=== PATIENT | male | born 1950 | race Caucasian/White ===

== ENCOUNTER 2017-03-27 05:08 | Day surgery (SDC) | payer MEDICARE, BC ==
[2017-03-26 11:02] LABS: HEMOGLOBIN 15.8 g/dL (13.5-17.5); MCH 31.8 pg (26.0-34.0); MCHC 34.3 g/dL (31.0-37.0); MCV 92.6 fL (80.0-100.0); MEAN PLATELET VOLUME 9.8 fL (7.4-10.4); RBC 4.97 10x6/uL (4.20-6.10); RDW 13.7 % (11.5-14.5); WBC 5.8 10x3/uL (4.8-10.8)
[~2017-03-27] VITALS: Ht 198.1 cm; Wt 117.0 kg
--- NOTE | ~2017-03-27 | HP ---
PATIENT: JUAN JOSE GARCIA MEDICAL RECORD: [id number] ACCOUNT: [id number] LOCATION:[facility] : 48 ADMISSION DATE: 03/27/17 HISTORY AND PHYSICAL EXAMINATION There is a typed history and physical on the chart. His history and physical examination is unchanged from his visit to see me in the clinic. His primary care physician is Dr. Rouse. His retort load expediter is Dr. Irwin. TRANSINT:[id number] Voice Confirmation ID: [id number] DOCUMENT ID: [id number] VENKAT MENDOZA MD CC: [id number] DICTATION DATE: 03/27/17 1158 SULFUR CHLORIDE OPERATOR: 03/27/17 1659 [facility] 03/27/17 [place] [id number] [place] [id number]
--- NOTE | ~2017-03-27 | OP ---
PATIENT NAME: JUAN JOSE GARCIA MEDICAL RECORD: [id number] :48 LOCATION:[facility] ADMISSION DATE: SURGEON: VENKAT MENDOZA MD DATE OF OPERATION: 03/27/2017 PREOPERATIVE DIAGNOSIS: Symptomatic umbilical hernia. POSTOPERATIVE DIAGNOSIS: Symptomatic incarcerated umbilical hernia. PROCEDURE: Open incarcerated umbilical hernia repair without mesh. SURGEON: Venkat Mendoza MD PARTY PLAN DEALER: None. BLOOD LOSS: Minimal. ANESTHESIA: General. COMPLICATIONS: None. Due to the small size of the hernia, I elected to perform this without mesh. OPERATIVE COURSE: I saw the patient in the holding area. We reviewed the operative procedure. The patient was conveyed to the operating room electively on 03/27/2017. General anesthesia was induced by anesthesia staff. An incision was accomplished within the umbilicus. There was incarcerated fat which appeared to be omentum. This was excised with the electrocautery and sent to pathology as a single specimen. I then sharply cleaned connective tissue from around the umbilical hernia defect. A jido-[id number]-vglpv repair was performed utilizing 0 Vicryl sutures. I oversewed the repair with a [id number] 0 Surgidac. The skin was approximated with 3-0 Vicryl. Approximation of the skin occurred with 4-0 Vicryl Rapide and then Dermabond. The patient was then extubated and conveyed to post-anesthesia care unit where he was in stable condition. I hope he will be dismissed home on an analgesic. TRANSINT:[id number] Voice Confirmation ID: [id number] DOCUMENT ID: [id number] VENKAT MENDOZA MD CC: GINGER HERRMANN M.D. and GEORGE HAMILTON MD [id number] DICTATION DATE: 03/27/171201 TOP FRAME MAKER: 03/27/17 1727 [facility] 03/27/17 [place] [id number]
[~2017-03-27 05:08] MED LIST: ADDERALL 30 MG30 MG PO; COLACE100 MG PO; COUMADIN5 MG PO; DEXILANT60 MG PO; DILAUDID4 MG PO; NORCO 10/325 TA1 TA1 PO; NORCO 5/325 TAB1 TA1 PO; ROXICODONE15 MG PO; SOMA350 MG PO; VALIUM10 MG PO
[2017-03-27 08:59] VITALS: BP 133/84; Ht 198.1 cm; Wt 117.0 kg
--- NOTE | 2017-03-27 12:14 | NUR ---
158/100 PRE OP BP
--- NOTE | 2017-03-27 14:09 | NUR ---
1405--PT UP TO BATHROOM, VOIDS WITHOUT DIFFICULTY. IV REAGAN'Cheyanne. ANA RN
--- NOTE | 2017-03-27 14:44 | NUR ---
1447--DISCHARGE INSTRUCTIONS GIVEN, PT VERBALIZES UNDERSTANDING. PT OFF UNIT VIA AMINAH. ANA GARCIA
== END 2017-03-27 14:40 | disposition home or self-care (01) ==
LOC: D.OPS 05:08 → D.PAN 10:00 → D.OPS 10:50 → D.PAN 11:00 → D.OPS 14:40
PROVIDERS: Anesthesiology
DX: K42.0 Umbilical hernia with obstruction, without gangrene (principal)

== ENCOUNTER 2017-05-20 14:34 | Emergency (ER) | payer MEDICARE, BC ==
[2017-03-27 08:59] VITALS: BMI 29.8
[2017-05-20 15:50] LABS: BASOPHILS 0.1 % (0-2); EOSINOPHILS 0.3 % (0-7); HEMATOCRIT 55.6 % (42.0-54.0); HEMOGLOBIN 18.7 g/dL (13.5-17.5); IMMATURE GRANULOCYTES 0.3 % (0-5); LYMPHOCYTES 6.9 % (15-50); MCH 32.2 pg (26.0-34.0); MCHC 33.6 g/dL (31.0-37.0); MCV 95.9 fL (80.0-100.0); MEAN PLATELET VOLUME 10.2 fL (7.4-10.4); MONOCYTES 7.8 % (2-11); NEUTROPHILS 84.6 % (40-80); PLATELET COUNT 230 10x3/uL (130-400); RDW 13.4 % (11.5-14.5); WBC 17.3 10x3/uL (4.8-10.8)
[2017-05-20 16:04] LABS: ALBUMIN 4.2 g/dL (3.4-5.0); ALKALINE PHOSPHATASE 84 U/L (46-116); ALT (SGPT) 61 U/L (10-68); CALC OSMOLALITY 283 mosm/kg (275-300); CALCIUM 9.5 mg/dL (8.5-10.1); CARBON DIOXIDE 27.3 mmol/L (21.0-32.0); CHLORIDE - SERUM 100 mmol/L (98-107); CREATININE - SERUM 1.2 mg/dL (0.6-1.3); GLUCOSE 203 mg/dL (74-106); POTASSIUM - SERUM 3.6 mmol/L (3.5-5.1); PROTEIN - SERUM 8.2 g/dL (6.4-8.2); SODIUM 139 mmol/L (136-145); UREA NITROGEN 12 mg/dL (7-18); eGFR NON AFRICAN AMERICAN 64 mL/min (90-120)
[2017-05-20 16:08] LABS: AMYLASE - SERUM 31 U/L (25-115); LIPASE 120 U/L (73-393); TROPONIN-I < 0.017 ng/mL (0.000-0.060)
== END 2017-05-20 17:56 | disposition home or self-care (01) ==
LOC: D.ER 14:34
PROVIDERS: Physician Assistant
DX: R11.2 Nausea with vomiting, unspecified (principal); R51 Headache; R42 Dizziness and giddiness; I25.10 Atherosclerotic heart disease of native coronary artery without angina pectoris; R00.0 Tachycardia, unspecified; R94.31 Abnormal electrocardiogram [ECG] [EKG]; R79.89 Other specified abnormal findings of blood chemistry

== ENCOUNTER 2017-06-13 14:43 | Inpatient (IN) | payer MEDICARE, BC ==
[~2017-06-13] VITALS: Ht 198.1 cm; Wt 115.7 kg
--- NOTE | ~2017-06-13 | OP ---
PATIENT NAME: JUAN JOSE GARCIA MEDICAL RECORD: [id number] :48 LOCATION:[facility] ADMISSION DATE:06/13/17 SURGEON: MOIRA GOMEZ MD DATE OF OPERATION: 06/16/2017 PREOPERATIVE DIAGNOSES: 1. Recurrent small-bowel obstruction. 2. Coronary artery disease. 3. Gastroesophageal reflux disease. 4. Obstructive sleep apnea. 5. Anxiety. POSTOPERATIVE DIAGNOSES: 1. Recurrent small-bowel obstruction. 2. Coronary artery disease. 3. Gastroesophageal reflux disease. 4. Obstructive sleep apnea. 5. Anxiety. PROCEDURE: Laparoscopic lysis of adhesions times 2 hours. SURGEON: Moira Gomez MD REPORT OF PROCEDURE: The patient's abdomen was prepped and draped in sterile fashion. A Veress needle was inserted in the left upper quadrant and the abdomen was insufflated. A 5-mm Visiport trocar was placed in the left lateral abdomen and we gently entered the abdominal cavity. Once inside, I could see there Veress needle and saw there was no evidence of any injury to bowel or surrounding structures. A 5-mm trocar was placed in the left lower quadrant and another 5-mm trocar was placed in the left subcostal region. The patient had a large amount of adherent adhesions of the omentum to the anterior abdominal wall on the superior aspect of the abdomen. These were teased down carefully with blunt dissection and electrocautery. Once we were able to free these up, we ran into the patient's small bowel and right colon, they were adherent to the right lateral wall. The small bowel and proximal right colon were taken down off the abdominal wall using sharp dissection. We continued following the patient's terminal ileum retrograde, relieving any adhesions that were found throughout the patient's pelvis. At the pelvis had a large amount of thick adhesions present which were eventually freed up completely until we had complete mobilization of the patient's small bowel. We were then able to run the small bowel from the terminal ileum back towards the ligament of Treitz. We checked multiple times to make sure there was no sign of any bowel injuries, which we saw none. We irrigated out the abdomen thoroughly with normal saline and assured there was no sign of any active bleeding. At this point, the omentum was laid down over the abdominal cavity and the trocars were removed. The skin incisions were closed with subcutaneous 5-0 Monocryl and dressed appropriately. These had been infused with a total of 10mL of 0.25% Marcaine with epinephrine prior to closure. COMPLICATIONS: None. CONDITION: Stable. ANESTHESIA: General endotracheal and local. OPERATIVE REPORT [id number] JUAN JOSE GARCIA BLOOD LOSS: Minimal. TRANSINT:[id number] Voice Confirmation ID: [id number] DOCUMENT ID: [id number] MOIRA GOMEZ MD CC: [id number] DICTATION DATE: 06/18/17 1137 PHYSICAL THERAPY NURSE: 06/18/[address] [facility] [address] [place] [id number]
--- NOTE | 2017-06-13 15:30 | NUR ---
RECEIVED TO ROOM 2207 DIRECT ADMIT FROM WALK IN CLINIC. SL TO R AC PATENT. ABDOMEN DISTENDED BUT SOFT. REPORTS VOMITING SINCE THURSDAY.
[2017-06-13 15:36] VITALS: BP 145/98; BMI 29.5
--- NOTE | 2017-06-13 16:10 | NUR ---
14 WOLOF NG TUBE INSERTED WITHOUT DIFFICULTY. IMMEDIATE RETURN OF 300 CC'S OF GREENISH LIQUID.
[2017-06-13 16:31] VITALS: BP 145/98
[2017-06-13 16:48] LABS: ANION GAP 10.1 mmol/L (8-16); CALCIUM 8.2 mg/dL (8.5-10.1); CARBON DIOXIDE 29.7 mmol/L (21.0-32.0); CREATININE - SERUM 1.1 mg/dL (0.6-1.3); POTASSIUM - SERUM 3.8 mmol/L (3.5-5.1)
--- NOTE | 2017-06-13 18:11 | NUR ---
RESTING QUIETLY WITH EYES CLOSED. RESP EVEN,NONLABORED.
--- NOTE | 2017-06-13 19:45 | NUR ---
PATIENT IS IN BED. HOB 45 DEGREES. NGT TO LEFT NARE, HOOKED TO LIWS. BED IN LOWEST POSITION, CALL LIGHT IN REACH. BED RIALS UP X'S 2. NO SIGNS OF DISTRESS NOTED. PATIENT IS RESTING QUIETLY WITH EYES CLOSED.
[2017-06-13 20:00] VITALS: BP 142/97
--- NOTE | 2017-06-13 20:53 | NUR ---
REC'D SITTING UP IN BED. ALERT AND ORIENTED X4. NO DISTRESS NOTED. NGT TO LEFT [place]. DENIED PAIN AT THIS TIME. INSTRUCTED TO CALL IF NEEDED ANYTHING. VERBALIZED UNDERSTANDING. BED LOW, LOCKED, CALL LIGHT IN REACH. WILL ADMIN PM/AM MEDS PRESCRIBED, WILL CONT TO MONITOR.
[2017-06-13 23:43] VITALS: BP 159/96
[2017-06-14 04:02] VITALS: BP 149/92
[2017-06-14 04:40] LABS: BASOPHILS 0.2 % (0-2); EOSINOPHILS 0.5 % (0-7); HEMATOCRIT 53.8 % (42.0-54.0); IMMATURE GRANULOCYTES 0.4 % (0-5); LYMPHOCYTES 16.4 % (15-50); MCH 31.6 pg (26.0-34.0); MCHC 33.5 g/dL (31.0-37.0); MCV 94.4 fL (80.0-100.0); MEAN PLATELET VOLUME 10.3 fL (7.4-10.4); MONOCYTES 11.7 % (2-11); NEUTROPHILS 70.8 % (40-80); PLATELET COUNT 235 10x3/uL (130-400); RDW 13.4 % (11.5-14.5); WBC 11.4 10x3/uL (4.8-10.8)
[2017-06-14 05:01] LABS: CALC OSMOLALITY 282 mosm/kg (275-300); CALCIUM 8.1 mg/dL (8.5-10.1); CARBON DIOXIDE 28.1 mmol/L (21.0-32.0); CHLORIDE - SERUM 104 mmol/L (98-107); GLUCOSE 147 mg/dL (74-106); POTASSIUM - SERUM 3.7 mmol/L (3.5-5.1); SODIUM 139 mmol/L (136-145); UREA NITROGEN 17 mg/dL (7-18); eGFR NON AFRICAN AMERICAN 79 mL/min (90-120)
--- NOTE | 2017-06-14 07:20 | NUR ---
PATIENT SITTING UP IN BED. PATIENT IS AWAKE, ALERT, AND ORIENTED X4. NO COMPLAINTS OF PAIN OR NAUSEA. NG TUBE NOTED TO PATIENT'S LEFT NARE AND CONNECTED TO LIS. PATIENT DENIES ANY NEEDS AT PRESENT TIME. CALL LIGHT IN PATIENT'S REACH. WILL MONITOR PATIENT.
[2017-06-14 08:32] VITALS: BP 145/92
[2017-06-14 11:56] VITALS: BP 140/85
[2017-06-14 16:42] VITALS: BP 141/86
[2017-06-14 19:00] VITALS: BP 152/93
--- NOTE | 2017-06-14 19:35 | NUR ---
RECIEVED SHIFT REPORT. PT IS LYING IN BED. ALERT AND ORIENTED AND ABLE TO VERBALIZE NEEDS. IV IS PATENT AND FLUIDS ARE RUNNING PER ORDER. PT IS AMBULATORY BUT WAS INSTRUCTED TO CALL FOR ANY ASSISTANCE NEEDED. NGT TO LEFT NARE PATENT AND CONNECTED TO LIWS. PT DENIES ANY PAIN AT THIS TIME. NO NEEDS ARE VERBALIZED AT THIS TIME. WILL CONTINUE TO MONITOR. SIDE RAILS ARE UP X 2. BED IS IN LOWEST POSITION. CALL LIGHT IS WITHIN REACH.
--- NOTE | 2017-06-14 21:00 | NUR ---
SHIFT ASSESSMENT COMPLETED. MEDICATION ADMINISTERED PER ORDER. NO NEEDS AT THIS TIME. WILL MONITOR. SIDE RAILS X 2. BED LOW. CALL LIGHT IN REACH.
[2017-06-15] VITALS: BP 155/87
[2017-06-15 04:00] VITALS: BP 143/88
--- NOTE | 2017-06-15 07:00 | NUR ---
PT REC'D FROM [facility]. RESTING IN BED WITH EYES CLOSED. EASILY AROUSED. NO COMPLAINTS OF PAIN. AAOX4. NGT TO L NARE TO LIS. APPROXIMATELY 250CC'S OF BROWN/GREEN FLUID TO COLLECTION CHAMBER. PIV TO R AC FREE OF REDNESS AND SWELLING. PT STATES, "I WISH SOMEONE WOULD TELL ME SOMETHING. I DON'T KNOW ANYTHING. I FEEL LIKE I COULD SCREAM BECAUSE I HAVE NO CLUE WHATS GOING ON." APOLOGIZED TO PT AND ASKED WHAT QUESTIONS HE HAD. PT WANTS TO KNOW WHY HE STILL HAS THE NGT AND WHEN IT WILL COME OUT AND WHEN HE CAN EAT. STATED THAT HE COULD NOT EAT UNTIL THE NGT CAME OUT BECAUSE THAT WOULD DEFEAT THE PURPOSE OF EATING ANYTHING. ALSO EXPLAINED THAT IT WOULD BE UP TO THE DOCTOR WHEN THE NGT WOULD BE DISCONTINUED WELL. PT ASKING, "CAN I HAVE THAT STUFF I GOT LAST NIGHT AT LEAST?" EXPLAINED THAT I WOULD HAVE TO CALL AND GET AN ORDER FOR IT, BUT I WOULD DEFINITELY TRY. BED LOW, CALL LIGHT IN REACH, DENIES NEEDS. CPOC.
[2017-06-15 08:38] VITALS: BP 148/92
--- NOTE | 2017-06-15 09:10 | NUR ---
PATIENT ALERT IN HIGH [place] POSITION. NO SIGNS OF DISTRESS NOTED. RAYMOND NURSE AID AT BEDSIDE. SIDE RAILS UP X2. BED IN LOW POSITION. CALL LIGHT IN REACH.
[2017-06-15 10:31] LABS: BASOPHILS 0.1 % (0-2); EOSINOPHILS 0.5 % (0-7); HEMATOCRIT 52.9 % (42.0-54.0); HEMOGLOBIN 17.4 g/dL (13.5-17.5); IMMATURE GRANULOCYTES 0.4 % (0-5); LYMPHOCYTES 16.7 % (15-50); MCHC 32.9 g/dL (31.0-37.0); MCV 94.3 fL (80.0-100.0); MEAN PLATELET VOLUME 10.4 fL (7.4-10.4); MONOCYTES 9.7 % (2-11); NEUTROPHILS 72.6 % (40-80); PLATELET COUNT 246 10x3/uL (130-400); RBC 5.61 10x6/uL (4.20-6.10); RDW 13.4 % (11.5-14.5); WBC 10.4 10x3/uL (4.8-10.8)
--- NOTE | 2017-06-15 10:35 | NUR ---
MORNING MEDS ADMINISTERED AT THIS TIME. TOLERATED WELL. BED LOW, CALL LIGHT IN REACH, DENIES NEEDS. CPOC.
[2017-06-15 10:46] LABS: ALBUMIN 3.1 g/dL (3.4-5.0); ALKALINE PHOSPHATASE 55 U/L (46-116); ALT (SGPT) 28 U/L (10-68); BILIRUBIN - TOTAL 0.64 mg/dL (0.2-1.3); CALC OSMOLALITY 282 mosm/kg (275-300); CALCIUM 8.3 mg/dL (8.5-10.1); CARBON DIOXIDE 29.9 mmol/L (21.0-32.0); CHLORIDE - SERUM 104 mmol/L (98-107); CREATININE - SERUM 0.9 mg/dL (0.6-1.3); GLUCOSE 126 mg/dL (74-106); POTASSIUM - SERUM 3.7 mmol/L (3.5-5.1); PROTEIN - SERUM 7.1 g/dL (6.4-8.2); SODIUM 140 mmol/L (136-145); UREA NITROGEN 17 mg/dL (7-18); eGFR NON AFRICAN AMERICAN 89 mL/min (90-120)
[2017-06-15 12:15] VITALS: Ht 198.1 cm; Wt 115.7 kg
--- NOTE | 2017-06-15 13:00 | NUR ---
PRN ATIVAN ADMINISTERED PER PT COMPLAINTS OF FEELING ANXIOUS. DR. GOMEZ AT BEDSIDE DC'ING NGT. WILL ORDER CLD TRAY.
[2017-06-15 13:30] VITALS: BP 156/88
--- NOTE | 2017-06-15 15:01 | NUR ---
PT SITTING UP IN BED VISITING AT BEDSIDE. BED LOW, CALL LIGHT IN REACH, DENIES NEEDS. CPOC.
[2017-06-15 17:05] VITALS: BP 142/83
--- NOTE | 2017-06-15 19:35 | NUR ---
RECIEVED SHIFT REPORT. PT IS LYING IN BED. ALERT AND ORIENTED AND ABLE TO VERBALIZE NEEDS. IV IS PATENT AND FLUIDS ARE RUNNING PER ORDER. PT IS AMBULATORY BUT WAS INSTRUCTED TO CALL FOR ANY ASSISTANCE NEEDED. PT DENIES ANY PAIN AT THIS TIME. NO NEEDS ARE VERBALIZED AT THIS TIME. WILL CONTINUE TO MONITOR. SIDE RAILS ARE UP X 2. BED IS IN LOWEST POSITION. CALL LIGHT IS WITHIN REACH.
[2017-06-15 20:00] VITALS: BP 120/84
--- NOTE | 2017-06-15 22:09 | NUR ---
SHIFT ASSESSMENT COMPLETED. PT REQUESTING PRN ATIVAN. ADMINISTERED PER ORDER. DENIES FURTHER NEEDS. WILL MONITOR. SIDE RAILS X 2. BED LOW. CALL LIGHT IN REACH.
[2017-06-16] VITALS: BP 130/88
[2017-06-16 04:00] VITALS: BP 128/80
[2017-06-16 05:59] LABS: BASOPHILS 0.5 % (0-2); EOSINOPHILS 1.7 % (0-7); HEMATOCRIT 49.8 % (42.0-54.0); HEMOGLOBIN 16.6 g/dL (13.5-17.5); IMMATURE GRANULOCYTES 0.2 % (0-5); LYMPHOCYTES 26.9 % (15-50); MCH 31.2 pg (26.0-34.0); MCHC 33.3 g/dL (31.0-37.0); MCV 93.6 fL (80.0-100.0); MEAN PLATELET VOLUME 10.2 fL (7.4-10.4); MONOCYTES 12.4 % (2-11); NEUTROPHILS 58.3 % (40-80); PLATELET COUNT 246 10x3/uL (130-400); RBC 5.32 10x6/uL (4.20-6.10); RDW 13.5 % (11.5-14.5); WBC 8.2 10x3/uL (4.8-10.8)
[2017-06-16 06:26] LABS: ALBUMIN 2.7 g/dL (3.4-5.0); ALKALINE PHOSPHATASE 48 U/L (46-116); CALCIUM 7.9 mg/dL (8.5-10.1); CARBON DIOXIDE 27.9 mmol/L (21.0-32.0); CHLORIDE - SERUM 105 mmol/L (98-107); CREATININE - SERUM 0.7 mg/dL (0.6-1.3); GLUCOSE 114 mg/dL (74-106); POTASSIUM - SERUM 3.5 mmol/L (3.5-5.1); PROTEIN - SERUM 6.2 g/dL (6.4-8.2); SODIUM 141 mmol/L (136-145); eGFR NON AFRICAN AMERICAN > 90 mL/min (90-120)
[2017-06-16 06:29] LABS: ALT (SGPT) 20 U/L (10-68); CALC OSMOLALITY 281 mosm/kg (275-300); UREA NITROGEN 12 mg/dL (7-18)
--- NOTE | 2017-06-16 08:01 | NUR ---
Patient Name: JUAN JOSE GARCIA Admission Status: Elective Accout number: [id number] Admission Date: 06-13-2017 : 1950 Admission Diagnosis: Attending: SUMAN Current LOS: 3 Anticipated DC Date: Planned Disposition: Home Primary Insurance: MEDICARE A & B Discharge Planning Comments: CM met with patient to assess discharge planning needs. Patient states that he is independent and lives home alone & plans to return there. He has a friend name Raghav Huang who will be his short haul driver home. Patient states his home is a safe place. Patient denies any steps or stairs in his home. He also denies any use of DME of services and does not think he will nee any. CM will continue to follow and assist as needed. PCP: [facility] Raghav Huang Loans Officer: Flory Mayo * Is the patient Alert and Oriented? Yes 0 * How many steps to enter\exit or inside your home? 0 0 * PCP NASIM 0 * [facility] 0 * Preadmission Environment Home Alone 0 * ADLs Independent 0 * Equipment None 0 * List name and contact numbers for known caregivers / representatives who currently or will assist patient after discharge: RAGHAV HUANG 0 * Community resources currently utilized None 0 * Additional services required to return to the preadmission environment? No 0 * Can the patient safely return to the preadmission environment? Yes 0 * Has this patient been hospitalized within the prior 30 days at any hospital? No 0 Grand Total: 0
[2017-06-16 09:23] VITALS: BP 137/79
[2017-06-16 15:26] VITALS: BP 154/87
--- NOTE | 2017-06-16 16:00 | NUR ---
PATIENT IN LOW POSITION WITH FAMILY PRESENT. NO SIGNS OF DISTRESS NOTED. SIDE RAILS UP X2. BED IN LOW POSITION. CALL LIGHT IN REACH.
--- NOTE | 2017-06-16 19:30 | NUR ---
RECIEVED SHIFT REPORT. PT IS LYING IN BED. ALERT AND ORIENTED AND ABLE TO VERBALIZE NEEDS. IV IS PATENT AND FLUIDS ARE RUNNING PER ORDER. LAP SITES TO ABDOMEN C/D/I. PT IS AMBULATORY BUT WAS INSTRUCTED TO CALL FOR ANY ASSISTANCE NEEDED. PT DENIES ANY PAIN AT THIS TIME. NO NEEDS ARE VERBALIZED AT THIS TIME. WILL CONTINUE TO MONITOR. SIDE RAILS ARE UP X 2. BED IS IN LOWEST POSITION. CALL LIGHT IS WITHIN REACH.
[2017-06-16 20:00] VITALS: BP 145/85
--- NOTE | 2017-06-16 20:45 | NUR ---
SHIFT ASSESSMENT COMPLETED. PT REQUESTING APPLE JUICE. NO FURTHER NEEDS AT THIS TIME. WILL MONITOR. SIDE RAILS X 2. BED LOW. CALL LIGHT IN REACH.
[2017-06-17] VITALS: BP 152/89
[2017-06-17 04:00] VITALS: BP 146/77
[2017-06-17 05:32] LABS: BASOPHILS 0.3 % (0-2); EOSINOPHILS 0.2 % (0-7); HEMATOCRIT 50.2 % (42.0-54.0); HEMOGLOBIN 16.7 g/dL (13.5-17.5); IMMATURE GRANULOCYTES 0.3 % (0-5); LYMPHOCYTES 14.7 % (15-50); MCH 30.9 pg (26.0-34.0); MCHC 33.3 g/dL (31.0-37.0); MEAN PLATELET VOLUME 10.3 fL (7.4-10.4); NEUTROPHILS 71.5 % (40-80); PLATELET COUNT 257 10x3/uL (130-400); RDW 13.4 % (11.5-14.5)
[2017-06-17 06:01] LABS: ALBUMIN 2.7 g/dL (3.4-5.0); ALKALINE PHOSPHATASE 51 U/L (46-116); ALT (SGPT) 25 U/L (10-68); BILIRUBIN - TOTAL 0.65 mg/dL (0.2-1.3); CALCIUM 7.5 mg/dL (8.5-10.1); CARBON DIOXIDE 26.1 mmol/L (21.0-32.0); CHLORIDE - SERUM 104 mmol/L (98-107); CREATININE - SERUM 0.8 mg/dL (0.6-1.3); GLUCOSE 144 mg/dL (74-106); POTASSIUM - SERUM 3.3 mmol/L (3.5-5.1); PROTEIN - SERUM 6.4 g/dL (6.4-8.2); SODIUM 137 mmol/L (136-145); eGFR NON AFRICAN AMERICAN > 90 mL/min (90-120)
[2017-06-17 06:04] LABS: CALC OSMOLALITY 274 mosm/kg (275-300); UREA NITROGEN 8 mg/dL (7-18)
--- NOTE | 2017-06-17 08:10 | NUR ---
PT AOX4 RESP EVEN AND NONLABORED PT DENIES NEEDS AT THIS TIME IV TO RIGHT HAND PATENT AND INTACT AT THIS TIME SRX2 BED AT LOWEST SETTING CALL LIGHT WITHIN REACH WILL CONTINUE TO MONITOR
[2017-06-17 09:52] VITALS: BP 137/84
[2017-06-17 13:07] VITALS: BP 129/79
--- NOTE | 2017-06-17 13:08 | NUR ---
NUTRITION MONITORING & EVAL CHART REVIEWED, DIET ADVANCED TO CLEAR LIQUID S/P PROCEDURE. WILL MONITOR DIET ADVANCEMENT, PO INTAKE. RD FOLLOWING
[2017-06-17 16:41] VITALS: BP 144/84
[2017-06-17 19:00] VITALS: BP 136/94
[2017-06-18] VITALS: BP 140/87; BP 142/82
--- NOTE | 2017-06-18 | NUR ---
REC'D LYING IN BED. ALERT AND ORIENTED. NO DISTRESS NOTED. IS WANTING TO TAKE A SHOWER. WILL HELP WITH THAT. DENIED FURTHER NEEDS AT THIS TIME. INSTRUCTED TO CALL IF NEEDED ANYTHING. VERBALIZED UNDERSTANDING. BED LOW, LOCKED, CALL LIGHT IN REACH.
--- NOTE | 2017-06-18 02:00 | NUR ---
PTIN BED WITH NO DISTRESS. RESPIRATIONS EVEN AND UNLABORED. SIDE RAILS X 2. BED LOW. CALL LIGHT IN REACH.
[2017-06-18 04:00] VITALS: BP 114/87
[2017-06-18 05:52] LABS: BASOPHILS 0.4 % (0-2); EOSINOPHILS 3.1 % (0-7); HEMATOCRIT 46.9 % (42.0-54.0); HEMOGLOBIN 15.7 g/dL (13.5-17.5); IMMATURE GRANULOCYTES 0.6 % (0-5); LYMPHOCYTES 18.4 % (15-50); MCH 31.1 pg (26.0-34.0); MCHC 33.5 g/dL (31.0-37.0); MCV 92.9 fL (80.0-100.0); MEAN PLATELET VOLUME 10.3 fL (7.4-10.4); MONOCYTES 14.5 % (2-11); PLATELET COUNT 252 10x3/uL (130-400); RBC 5.05 10x6/uL (4.20-6.10); RDW 13.4 % (11.5-14.5); WBC 8.5 10x3/uL (4.8-10.8)
[2017-06-18 06:08] LABS: ALBUMIN 2.5 g/dL (3.4-5.0); ALKALINE PHOSPHATASE 46 U/L (46-116); ALT (SGPT) 19 U/L (10-68); BILIRUBIN - TOTAL 0.68 mg/dL (0.2-1.3); CALC OSMOLALITY 273 mosm/kg (275-300); CALCIUM 7.6 mg/dL (8.5-10.1); CARBON DIOXIDE 27.7 mmol/L (21.0-32.0); CHLORIDE - SERUM 104 mmol/L (98-107); CREATININE - SERUM 0.7 mg/dL (0.6-1.3); GLUCOSE 129 mg/dL (74-106); POTASSIUM - SERUM 3.2 mmol/L (3.5-5.1); PROTEIN - SERUM 6.1 g/dL (6.4-8.2); SODIUM 137 mmol/L (136-145); UREA NITROGEN 6 mg/dL (7-18); eGFR NON AFRICAN AMERICAN > 90 mL/min (90-120)
[2017-06-18 08:00] VITALS: BP 137/85
--- NOTE | 2017-06-18 08:12 | NUR ---
AWAKE AND ALERT. ORIENTED X3. NO C/O THIS AM. LUNGS ARE CLEAR BILATERALLY, NO COUGH NOTED. SKIN IS INTACT WITHOUT REDNESS EXCEPT 3 SMALL INSERTION SITES TO ABDOMEN WHICH ARE CLEAN AND DRY. SL TO RIGHT WRIST IS PATENT WITHOUT REDNESS AT INSERITON SITE. DENIES NEEDS.
--- NOTE | 2017-06-18 09:14 | NUR ---
AMBULATED OVER 1000 FEET PER SELF IN HALLWAY. NO C/O INCREASED PAIN OR NAUSEA WITH ACTIVITY.
--- NOTE | 2017-06-18 13:00 | NUR ---
FULL LIQUID DIET SERVED. ATE MOST OF MEAL.
--- NOTE | 2017-06-18 14:40 | NUR ---
DISCHARGED TO HOME WITH FAMILY AMBULATORY. DISCHARGE INSTRUCTIONS GIVEN BOTH VERBALLY AND WRITTEN. ALL QUESTIONS ANSWERED. PATIENT VERBALIZED UNDERSTANDING OF SAME. NO NEW PRESCRIPTIONS NEEDED. SL TO RIGHT WRIST D/C WITH CATHETER INTACT.
== END 2017-06-18 14:43 | disposition home or self-care (01) | DRG 328 ==
LOC: D.MS 14:43 → D.SDCHOLD 14:43 → D.MS 06-18 14:43
PROVIDERS: Emergency Medicine; Surgery; ADMIT Family Medicine
PROC: 0D9670Z Drainage of Stomach with Drainage Device, Via Natural or Artificial Opening (ICD-10-PCS; 2017-06-13)
PROC: 0DNW4ZZ Release Peritoneum, Percutaneous Endoscopic Approach (ICD-10-PCS; principal; 2017-06-16 11:00)
PROC: 0DN64ZZ Release Stomach, Percutaneous Endoscopic Approach (ICD-10-PCS; 2017-06-16 11:00)
DX: K56.5 Intestinal adhesions [bands] with obstruction (postinfection) (principal); K21.9 Gastro-esophageal reflux disease without esophagitis; G47.33 Obstructive sleep apnea (adult) (pediatric); F41.9 Anxiety disorder, unspecified; I25.10 Atherosclerotic heart disease of native coronary artery without angina pectoris

== ENCOUNTER 2017-06-20 19:20 | Observation (INO) | payer MEDICARE, BC ==
[~2017-06-20] VITALS: Ht 198.1 cm; Wt 113.4 kg
[2017-06-20 19:54] LABS: BASOPHILS 0.3 % (0-2); EOSINOPHILS 0.6 % (0-7); HEMATOCRIT 57.6 % (42.0-54.0); HEMOGLOBIN 20.3 g/dL (13.5-17.5); IMMATURE GRANULOCYTES 0.7 % (0-5); LYMPHOCYTES 10.7 % (15-50); MCH 31.8 pg (26.0-34.0); MCHC 35.2 g/dL (31.0-37.0); MCV 90.3 fL (80.0-100.0); MEAN PLATELET VOLUME 10.1 fL (7.4-10.4); MONOCYTES 8.4 % (2-11); NEUTROPHILS 79.3 % (40-80); RBC 6.38 10x6/uL (4.20-6.10); RDW 13.1 % (11.5-14.5); WBC 15.6 10x3/uL (4.8-10.8)
[2017-06-20 19:55] LABS: PLATELET COUNT 308 10x3/uL (130-400)
[2017-06-20 20:07] LABS: ALBUMIN 3.6 g/dL (3.4-5.0); ANION GAP 17.4 mmol/L (8-16); BILIRUBIN - TOTAL 0.87 mg/dL (0.2-1.3); CALCIUM 9.9 mg/dL (8.5-10.1); CARBON DIOXIDE 24.2 mmol/L (21.0-32.0); CREATININE - SERUM 1.5 mg/dL (0.6-1.3); POTASSIUM - SERUM 3.6 mmol/L (3.5-5.1); PROTEIN - SERUM 8.6 g/dL (6.4-8.2)
[2017-06-20 23:13] LABS: COLOR DK YELLOW (YELLOW)
[2017-06-20 23:14] LABS: APPEARANCE CLOUDY (CLEAR); BILIRUBIN 2+ (NEGATIVE); GLUCOSE NEGATIVE (NEGATIVE); KETONE LARGE mg/dL (NEGATIVE); LEUKOCYTE ESTERASE 1+ (NEGATIVE); NITRITE NEGATIVE (NEGATIVE); PROTEIN 2+ mg/dL (NEGATIVE); UROBILINOGEN NORMAL (NORMAL)
[2017-06-20 23:15] LABS: BACTERIA FEW /hpf (NONE SEEN); MUCUS >1+ /lpf (NONE SEEN); RED CELLS - URINE 0-5 /hpf (0-5)
--- NOTE | 2017-06-21 01:15 | NUR ---
RECEIVED TO FLOOR FROM ER VIA WHEELCHAIR. PT STATES HE HAS HAD NAUSEA AND VOMITING SINCE LEAVING HOSPITAL ON 06/18/17. PT DENIES NAUSEA AT THIS TIME. INITIATED CONTINUOUS IV FLUIDS. REVIEWED HOME MEDS AND HISTORY. ASSESSMENT PER FLOW-SHEET. PT IS NPO. PT SAID HE WOULD LIKE SOMETHING FOR SLEEP. WAITING FOR CALL BACK FROM DR. MENDOZA.
[2017-06-21] MEDS ORDERED: PROTONIX40 MG PO (01:29)
[2017-06-21 03:00] VITALS: BP 150/92; BMI 28.9
[2017-06-21 04:00] VITALS: BP 156/99
[2017-06-21 07:32] LABS: BASOPHILS 0.2 % (0-2); EOSINOPHILS 0.4 % (0-7); HEMATOCRIT 51.9 % (42.0-54.0); HEMOGLOBIN 17.6 g/dL (13.5-17.5); IMMATURE GRANULOCYTES 0.5 % (0-5); LYMPHOCYTES 14.8 % (15-50); MCH 31.1 pg (26.0-34.0); MCHC 33.9 g/dL (31.0-37.0); MCV 91.7 fL (80.0-100.0); MEAN PLATELET VOLUME 10.3 fL (7.4-10.4); MONOCYTES 8.5 % (2-11); NEUTROPHILS 75.6 % (40-80); PLATELET COUNT 320 10x3/uL (130-400); RBC 5.66 10x6/uL (4.20-6.10); RDW 13.2 % (11.5-14.5); WBC 12.2 10x3/uL (4.8-10.8)
--- NOTE | 2017-06-21 07:45 | NUR ---
LEAVING WITH RADIOLOGY FOR SMALL BOWEL SERIES, DENIES NEEDS, BED LOWEST POSIITON, CALL LIGHT IN REACH, WILL CONTINUE TO MONITOR
[2017-06-21 08:03] LABS: ALBUMIN 2.8 g/dL (3.4-5.0); ANION GAP 13.4 mmol/L (8-16); BILIRUBIN - TOTAL 0.73 mg/dL (0.2-1.3); CALCIUM 8.4 mg/dL (8.5-10.1); CARBON DIOXIDE 27.3 mmol/L (21.0-32.0); CREATININE - SERUM 1.1 mg/dL (0.6-1.3); POTASSIUM - SERUM 3.7 mmol/L (3.5-5.1); PROTEIN - SERUM 7.2 g/dL (6.4-8.2)
--- NOTE | 2017-06-21 11:29 | NUR ---
RESTING QUIETLY IN BED. DENIES NEEDS. BOWEL SOUNDS ACTIVE X4. DENIES NEEDS. 3 SMALL INSERTION SITES TO ABDOMEN DRY AND INTACT.
[2017-06-21 12:33] VITALS: BP 132/80
[2017-06-21 17:38] VITALS: BP 150/89
[2017-06-21 20:00] VITALS: BP 127/89
[2017-06-22] VITALS (7 sets, daily range): BP systolic 126–146; BP diastolic 68–89; Ht 198.1 cm; Wt 113.4 kg
[2017-06-22 06:35] LABS: BASOPHILS 0.8 % (0-2); EOSINOPHILS 2.9 % (0-7); HEMATOCRIT 49.4 % (42.0-54.0); HEMOGLOBIN 16.3 g/dL (13.5-17.5); IMMATURE GRANULOCYTES 0.6 % (0-5); LYMPHOCYTES 26.1 % (15-50); MEAN PLATELET VOLUME 10.1 fL (7.4-10.4); MONOCYTES 10.2 % (2-11); NEUTROPHILS 59.4 % (40-80); PLATELET COUNT 293 10x3/uL (130-400); RBC 5.26 10x6/uL (4.20-6.10); RDW 13.2 % (11.5-14.5)
[2017-06-22 06:45] LABS: MCV 93.9 fL (80.0-100.0); WBC 8.4 10x3/uL (4.8-10.8)
[2017-06-22 06:59] LABS: ALBUMIN 2.6 g/dL (3.4-5.0); ALKALINE PHOSPHATASE 50 U/L (46-116); ALT (SGPT) 28 U/L (10-68); BILIRUBIN - TOTAL 0.61 mg/dL (0.2-1.3); CALC OSMOLALITY 276 mosm/kg (275-300); CALCIUM 8.1 mg/dL (8.5-10.1); CARBON DIOXIDE 28.9 mmol/L (21.0-32.0); CHLORIDE - SERUM 103 mmol/L (98-107); GLUCOSE 110 mg/dL (74-106); PHOSPHOROUS 2.6 mg/dL (2.5-4.9); POTASSIUM - SERUM 3.9 mmol/L (3.5-5.1); PROTEIN - SERUM 6.6 g/dL (6.4-8.2); SODIUM 138 mmol/L (136-145); UREA NITROGEN 13 mg/dL (7-18); eGFR NON AFRICAN AMERICAN 79 mL/min (90-120)
--- NOTE | 2017-06-22 07:35 | NUR ---
A&O, DENIES NEEDS, BED LOWEST POSITION, NON-SKID SOCKS ON, CALL LIGHT IN REACH, WILL CONTINUE TO MONITOR
--- NOTE | 2017-06-22 09:39 | NUR ---
Patient Name: JUAN JOSE GARCIA Admission Status: ER Accout number: [id number] Admission Date: 06-20-2017 : 1950 Admission Diagnosis: Attending: SHARI Current LOS: 2 Anticipated DC Date: 06-23-2017 Planned Disposition: Home Primary Insurance: MEDICARE A & B Discharge Planning Comments: CM MET WITH PATIENT REGARDING D/C NEEDS AND PLANS. PATIENT STATED HE LIVES WITH HIS AND HAS 2 STEPS TO ENTER HOME AND NO STAIRS IN HOME. PATIENT STATED A FRIEND OR FAMILY MEMBER WILL DRIVE HIM HOME AT DISCHARGE. PATIENT STATED HE IS INDEPENDENT WITH HIS CARE AND HAS A CPAP AT HOME. PATIENTS PCP IS DR. HAMILTON AND PHARMACY IS [facility]. PATIENT STATED HE DOES NOT WANT HOME HEALTH AT DISCHARGE. CM WILL CONTINUE TO FOLLOW PATIENT WITH D/C NEEDS AND PLANS. PCP DR. HAMILTON [facility]- [phone] SHAILESH GARCIA (DAUGHTER) [phone] Watch Crystal Cutter: Karen Waldrop Is the patient Alert and Oriented? Yes 0 * How many steps to enter\exit or inside your home? 2 0 * PCP DR. HAMILTON 0 * Pharmacy [facility] 0 * Preadmission Environment Home with Family 0 * ADLs Independent 0 * Equipment CPAP 0 * List name and contact numbers for known caregivers / representatives who currently or will assist patient after discharge: SHAILESH GARCIA [phone] 0 * Additional services required to return to the preadmission environment? Yes 0 * Can the patient safely return to the preadmission environment? Yes 0 * Has this patient been hospitalized within the prior 30 days at any hospital? Yes 0 Grand Total: 0
--- NOTE | 2017-06-22 12:00 | NUR ---
PT ASLEEP IN BED WITH NO VISABLE SIGNS OF PAIN OR DISCOMFORT AT THIS TIME, BED IN LOW POSITION AND CALL LIGHT WITHIN REACH. WILL CONTINUE TO MONITOR.
--- NOTE | 2017-06-22 15:04 | HP ---
PATIENT: JUAN JOSE GARCIA MEDICAL RECORD: [id number] ACCOUNT: [id number] LOCATION:D.[facility] : [birth year] ADMISSION DATE: 06/20/17 HISTORY AND PHYSICAL EXAMINATION DATE OF SERVICE: 06/21/2017 CHIEF COMPLAINT: Abdominal pain. HISTORY OF PRESENT ILLNESS: The patient has abdominal pain and distention. He has had nausea and vomiting. I have personally reviewed flat and upright views of the abdomen as well as small bowel follow through, which I have ordered. Symptoms are severe. They are constant and nonradiating. It is generalized abdominal pain. Palpation aggravates. Nothing alleviates. The patient was just released from the hospital after having surgery for a bowel obstruction. This was a laparoscopic adhesiolysis performed by Dr. Sosa. The Steri-Strips are still in place. REVIEW OF SYSTEMS: No fever, no chills, no chest pain, no cough, no congestion. Positive for nausea, positive for vomiting, positive for abdominal pain. No dysuria, no back pain, no numbness or tingling, no rash. No anemia, no hives. PAST MEDICAL AND SURGICAL HISTORY: As described above. Umbilical hernia repair in the past by me, vertigo, adhesiolysis for small-bowel obstruction as described above, also gastroesophageal reflux and anxiety. SOCIAL HISTORY: Negative for alcohol or tobacco use. HOME MEDICINES: Dexlansoprazole, diazepam, hydrocodone, and oxycodone. ALLERGIES: No known drug allergies. PHYSICAL EXAMINATION: GENERAL: The patient does not appear acutely ill. He does not appear chronically ill. EARS: External ears appear normal. EYES: Extraocular movements are intact. NECK: Trachea is midline. CHEST: No intercostal retractions. PULMONARY: Nonlabored, no stridor. ABDOMEN: Protuberant, tympanitic, mildly diffusely tender. Steri-Strips are still in place. PSYCHIATRIC: Normal affect. NEUROLOGIC: Nonfocal, no lethargy. The patient answers questions appropriately, moves all extremities well. BACK: No thoracic kyphosis. LYMPHATICS: No lymphangitic streaking of the exposed extremities. IMPRESSION: Recurrent small-bowel obstruction. PLAN: I will hold off on NG tube for now. Dr. Sosa returns tomorrow. I will watch his small bowel follow through. Serial abdominal examinations. With additional vomiting, I am going to insist upon a nasogastric tube for gastric decompression. HISTORY AND PHYSICAL [id number] JUAN JOSE GARCIA TRANSINT:[id number] Voice Confirmation ID: [id number] DOCUMENT ID: [id number] VENKAT MENDOZA MD at 1504 CC: GEORGE HAMILTON MD [id number] DICTATION DATE: 06/21/17 1313 MANIFEST CLERK: 06/21/17 1610 ADM IN [place] [id number] [place] [address]
--- NOTE | 2017-06-22 16:41 | NUR ---
RCVD PT FROM MED/SURG THROW OUT CLERK VIA W/C. PT AMB TO BED WITHOUT DIFFICULTY. NS INFUSING @ 100ML/HR VIA ALARIS PUMP TO PIV IN RT HAND. NO SIGNS OF ERYTHEMA OR EDEMA TO SITE. SHIFT ASSESSMENT COMPLETE AT THIS TIME. PT IS AAOX3. BREATH SOUNDS CLEAR & EQUAL X2. HR-RRR, PPP, BOWEL SOUNDS ACTIVE X4. 4 SMALL INCISIONS WITH STERISTRIPS NOTED TO ABD FROM PROCEDURE DONE LAST . 1 @ SUBXYPHOID PROCESS, LUQ, LLQ AND BELOW UMBILICUS. ALL C/D/I WITH NO DRAINAGE NOTED TO SITES. PT DENIES PAIN OR NEED FOR MEDS AT THIS TIME. ICE WATER PROVIDED PER PT REQUEST IN [facility]. PT STATES "I'LL NEED STUFF FOR A SHOWER LATER, BUT I'LL LET YOU KNOW WHEN." ADV PT TO CALL OUT WHEN READY. PT DENIES FURTHER NEEDS. BED LOW, WHEELS LOCKED, CL IN REACH, SIDE RAILS UP X2.
--- NOTE | 2017-06-22 17:32 | NUR ---
DIETARY DELIVERED MEAL TRAY. PT REQUESTS AND RECEIVES TOMATO SOUP INSTEAD OF CHICKEN NOODLE. PT DENIES ANY FURTHER NEEDS.
--- NOTE | 2017-06-22 18:09 | NUR ---
ROUNDS MADE. PT FINISHED 100% OF MEAL. MEAL TRAY REMOVED AND LIGHTS DIMMED PER PT REQUEST. PT DENIES FURTHER NEEDS OR PAIN AT THIS TIME.
--- NOTE | 2017-06-22 19:10 | NUR ---
AWAKE DURING INITIAL ROUNDS. INTRODUCED SELF. V/S TAKEN. ASSESSMENT DONE. STATUS Dx: BOWEL OBSTRUCTION--RE-ADMITTED THURSDAY FOR POSSIBLE ILEUS. IVF--NS TO R HAND @ 100cc/hr. DENIES PAIN AT THIS TIME. NO N/V. WANTS TO TAKE A SHOWER TONIGHT.
--- NOTE | 2017-06-22 21:10 | NUR ---
UP AD JAZ IN THE ROOM.
--- NOTE | 2017-06-22 23:45 | NUR ---
V/S RECHECKED. ATIVAN 1mg IV GIVEN PER PT's REQUEST FOR SLEEP.
--- NOTE | 2017-06-23 01:10 | NUR ---
EYES CLOSED. LEFT UNDISTURBED.
--- NOTE | 2017-06-23 03:51 | NUR ---
PEPCID 40mg IV GIVEN. SEE E-MAR. V/S RECHECKED.
[2017-06-23 03:55] VITALS: BP 143/80
--- NOTE | 2017-06-23 06:00 | NUR ---
SLEPT FAIRLY WELL DURING THE NIGHT. CONTINUING PLAN OF CARE. NO N/V DURING THE NIGHT. DENIES PAIN.
[2017-06-23 07:30] VITALS: BP 144/84
--- NOTE | 2017-06-23 07:30 | NUR ---
PT RECEIVED THIS AM LYING IN BED. HE OFFERS NO COMPLAINTS. VSS. PT STATES THAT HE IS NOT HAVING ANY PAIN. HE IS NOT HAVING ANY NAUSEA OR VOMITING. HE IS PASSISNG GAS. GEN- AWAKE AND ALERT. LUNGS- CLEAR. HEART- RRR. ABD- BS+ SOFT, NONTENDER. EXT- MINIMAL EDEMA LE. IV PATENT R HAND. RE-SECURED IV WITH TEGADERM. BED IS LOW, SIDE RAILS UP X 2 AND CALL LIGHT IN REACH.
--- NOTE | 2017-06-23 09:00 | NUR ---
PT IS JUST RESTING IN BED. HE OFFERS NO COMPLAINTS. STATES THAT HE IS NOT HAVING ANY PAIN. HE STATES THAT HE IS READY TO GO HOME. HURTING.
--- NOTE | 2017-06-23 10:00 | NUR ---
PT IS DOWNSTAIRS FOR KUB. DR GOMEZ CAME TO SEE PT. HE SAW IN X-RAY AND REVIEWED FILM AND DISCHARGED HIM.
--- NOTE | 2017-06-23 12:00 | NUR ---
SALINE LOCK D'CD. TIP INATACT.
--- NOTE | 2017-06-23 13:00 | NUR ---
PT DISCHARGED HOME. PT REFUSED WHEELCHAIR AND WANTED TO WALK. WALKED WITH FAMILY MEMBER. ALL DISCHARGE INSTRUCTIONS GIVEN.
--- NOTE | 2017-06-23 16:58 | NUR ---
PT IS RESTING IN BED. OFFERS NO COMPLAINTS.
== END 2017-06-23 13:00 | disposition home or self-care (01) ==
LOC: D.ER 19:20 → OBSVTIME 23:55 → D.MS 23:55 → D.WS 06-22 16:45
PROVIDERS: Family Medicine; ADMIT Surgery
DX: K56.60 Unspecified intestinal obstruction (principal); K21.9 Gastro-esophageal reflux disease without esophagitis; F41.9 Anxiety disorder, unspecified

== ENCOUNTER 2018-04-28 18:20 | Observation (INO) | payer MEDICARE, BC ==
[~2018-04-28] VITALS: Ht 198.1 cm; Wt 113.6 kg
[~2018-04-28 18:20] MED LIST changes: +PROTONIX40 MG PO
[2018-04-28 19:05] LABS: BASOPHILS 0.2 % (0-2); EOSINOPHILS 0.2 % (0-7); HEMATOCRIT 53.9 % (42.0-54.0); HEMOGLOBIN 18.7 g/dL (13.5-17.5); IMMATURE GRANULOCYTES 0.3 % (0-5); LYMPHOCYTES 6.9 % (15-50); MCH 31.3 pg (26.0-34.0); MCHC 34.7 g/dL (31.0-37.0); MCV 90.1 fL (80.0-100.0); MEAN PLATELET VOLUME 10.4 fL (7.4-10.4); MONOCYTES 7.8 % (2-11); NEUTROPHILS 84.6 % (40-80); RBC 5.98 10x6/uL (4.20-6.10)
[2018-04-28 19:14] LABS: PLATELET COUNT 234 10x3/uL (130-400)
[2018-04-28 19:21] LABS: ALBUMIN 3.7 g/dL (3.4-5.0); ANION GAP 10.9 mmol/L (8-16); BILIRUBIN - TOTAL 0.81 mg/dL (0.2-1.3); CALCIUM 9.2 mg/dL (8.5-10.1); CARBON DIOXIDE 29.2 mmol/L (21.0-32.0); CREATININE - SERUM 1.1 mg/dL (0.6-1.3); POTASSIUM - SERUM 4.1 mmol/L (3.5-5.1); PROTEIN - SERUM 7.8 g/dL (6.4-8.2)
[2018-04-28 20:35] LABS: APPEARANCE CLEAR (CLEAR); BILIRUBIN NEGATIVE (NEGATIVE); COLOR YELLOW (YELLOW); GLUCOSE 50 mg/dL (NEGATIVE); KETONE NEGATIVE (NEGATIVE); NITRITE NEGATIVE (NEGATIVE); PROTEIN TRACE mg/dL (NEGATIVE); SPECIFIC GRAVITY 1.015 (1.005-1.020); UROBILINOGEN NORMAL (NORMAL)
[2018-04-28 21:00] VITALS: BP 145/88
[2018-04-28 22:00] VITALS: BP 128/83
[2018-04-28 23:00] VITALS: BP 118/84
[2018-04-29] VITALS: BP 116/64
[2018-04-29] MEDS ORDERED: ADDERALL 30 MG30 MG PO (01:17)
[2018-04-29 04:00] VITALS: BP 135/75
[2018-04-29 05:49] VITALS: BP 116/81; BMI 29.3
[2018-04-29 06:15] LABS: BASOPHILS 0.1 % (0-2); EOSINOPHILS 0.2 % (0-7); HEMATOCRIT 47.8 % (42.0-54.0); HEMOGLOBIN 16.1 g/dL (13.5-17.5); IMMATURE GRANULOCYTES 0.3 % (0-5); LYMPHOCYTES 11.9 % (15-50); MCH 30.5 pg (26.0-34.0); MCHC 33.7 g/dL (31.0-37.0); MCV 90.5 fL (80.0-100.0); MEAN PLATELET VOLUME 10.6 fL (7.4-10.4); NEUTROPHILS 78.5 % (40-80); PLATELET COUNT 237 10x3/uL (130-400); RBC 5.28 10x6/uL (4.20-6.10); RDW 13.3 % (11.5-14.5); WBC 15.2 10x3/uL (4.8-10.8)
[2018-04-29 06:57] LABS: ALBUMIN 2.9 g/dL (3.4-5.0); ALKALINE PHOSPHATASE 48 U/L (46-116); BILIRUBIN - TOTAL 0.92 mg/dL (0.2-1.3); CALCIUM 7.7 mg/dL (8.5-10.1); CHLORIDE - SERUM 104 mmol/L (98-107); CREATININE - SERUM 0.9 mg/dL (0.6-1.3); MAGNESIUM - SERUM 1.7 mg/dL (1.8-2.4); PHOSPHOROUS 2.4 mg/dL (2.5-4.9); POTASSIUM - SERUM 3.8 mmol/L (3.5-5.1); PROTEIN - SERUM 6.4 g/dL (6.4-8.2); SODIUM 142 mmol/L (136-145); UREA NITROGEN 12 mg/dL (7-18); eGFR NON AFRICAN AMERICAN 89 mL/min (90-120)
[2018-04-29 07:00] LABS: ALT (SGPT) 31 U/L (10-68); CALC OSMOLALITY 285 mosm/kg (275-300); GLUCOSE 152 mg/dL (74-106)
[2018-04-29 08:16] VITALS: BP 136/74
[2018-04-29 13:54] VITALS: Ht 198.1 cm; Wt 113.6 kg
[2018-04-29 15:37] VITALS: BP 135/77
[2018-04-29 20:10] VITALS: BP 153/87
[2018-04-30 00:37] VITALS: BP 139/83
[2018-04-30 04:50] VITALS: BP 131/74
[2018-04-30 07:20] LABS: BASOPHILS 0.2 % (0-2); EOSINOPHILS 1.2 % (0-7); HEMATOCRIT 48.2 % (42.0-54.0); HEMOGLOBIN 16.3 g/dL (13.5-17.5); IMMATURE GRANULOCYTES 0.2 % (0-5); LYMPHOCYTES 23.5 % (15-50); MCHC 33.8 g/dL (31.0-37.0); MCV 91.6 fL (80.0-100.0); MEAN PLATELET VOLUME 10.4 fL (7.4-10.4); MONOCYTES 11.9 % (2-11); PLATELET COUNT 224 10x3/uL (130-400); RBC 5.26 10x6/uL (4.20-6.10); RDW 13.4 % (11.5-14.5)
[2018-04-30 07:26] LABS: WBC 8.2 10x3/uL (4.8-10.8)
[2018-04-30 08:07] VITALS: BP 141/83
[2018-04-30 08:11] LABS: ANION GAP 10.4 mmol/L (8-16); BILIRUBIN - TOTAL 0.66 mg/dL (0.2-1.3); CALCIUM 8.1 mg/dL (8.5-10.1); CREATININE - SERUM 1.1 mg/dL (0.6-1.3); PROTEIN - SERUM 6.7 g/dL (6.4-8.2)
[2018-04-30 08:14] LABS: POTASSIUM - SERUM 4.4 mmol/L (3.5-5.1)
[2018-04-30 11:23] VITALS: BP 167/92
== END 2018-04-30 15:48 | disposition home or self-care (01) ==
LOC: D.ER 18:20 → D.EDHOLD 21:00 → OBSVTIME 21:00 → D.M2 21:00
PROVIDERS: Family Medicine; Surgery
DX: K56.609 Unspecified intestinal obstruction, unspecified as to partial versus complete obstruction (principal); K52.9 Noninfective gastroenteritis and colitis, unspecified; K21.9 Gastro-esophageal reflux disease without esophagitis; F41.9 Anxiety disorder, unspecified; I25.2 Old myocardial infarction; Z87.891 Personal history of nicotine dependence

== ENCOUNTER → 2018-05-25 08:10 | Outpatient (CLI) | payer MEDICARE, BC ==
[2018-04-29 13:54] VITALS: BMI 29.2
== END | disposition home or self-care (01) ==
LOC: D.MRI 08:00
DX: M54.16 Radiculopathy, lumbar region (principal)

== ENCOUNTER → 2018-06-03 15:43 | Outpatient (CLI) | payer MEDICARE, BC ==
[2018-04-29 13:54] VITALS: BMI 29.2
== END | disposition home or self-care (01) ==
LOC: D.CT 15:43
DX: M54.16 Radiculopathy, lumbar region (principal)

== ENCOUNTER 2018-07-01 21:39 | Inpatient (IN) | payer MEDICARE, BC ==
[~2018-07-01] VITALS: Ht 198.1 cm; Wt 113.4 kg
--- NOTE | ~2018-07-01 | DS ---
PATIENT:JUAN JOSE GARCIA :[birth year] MEDICAL RECORD: [id number] DISCHARGE SUMMARY ADMISSION DATE: 07/02/18 DISCHARGE DATE: 07/04/18 PRINCIPAL DIAGNOSIS: Partial small-bowel obstruction. OTHER DIAGNOSES: Coronary artery disease, history of myocardial infarction, history of pneumonia, obstructive sleep apnea, history of umbilical hernia repair, anxiety, history of cholecystectomy, history of appendectomy, history of two left knee scopes, history of left hip arthroplasty, also tobacco abuse. HOSPITAL COURSE: The patient was admitted through the Emergency Room with apparent partial small-bowel obstruction. His bowel function began to return. He underwent a small bowel follow-through, which was normal. He was started on a regular diet and dismissed home. There is no need for him to follow up with me in the office unless he develops a complication related to this operative procedure. I have told him that should he develop another small-bowel obstruction, then I would recommend that he undergo a laparoscopic adhesiolysis to prevent further small bowel obstructions in the future as I believe this bowel obstruction is due to adhesions. TRANSINT:[id number] Voice Confirmation ID: [id number] DOCUMENT ID: [id number] VENKAT MENDOZA MD at 1047 CC: [id number] DICTATION DATE: 07/04/182139 MAJOR GIFTS OFFICER: 07/05/18 0036 DIS IN 07/04/18 [address] [place] [address]
[2018-07-01 22:26] LABS: BASOPHILS 0.1 % (0-2); EOSINOPHILS 0.1 % (0-7); HEMATOCRIT 56.2 % (42.0-54.0); HEMOGLOBIN 19.8 g/dL (13.5-17.5); IMMATURE GRANULOCYTES 0.4 % (0-5); MCH 31.5 pg (26.0-34.0); MCHC 35.2 g/dL (31.0-37.0); MCV 89.3 fL (80.0-100.0); MEAN PLATELET VOLUME 10.9 fL (7.4-10.4); MONOCYTES 11.5 % (2-11); NEUTROPHILS 74.9 % (40-80); PLATELET COUNT 258 10x3/uL (130-400); RBC 6.29 10x6/uL (4.20-6.10); RDW 13.7 % (11.5-14.5); WBC 16.8 10x3/uL (4.8-10.8)
[2018-07-01 22:31] LABS: APPEARANCE CLEAR (CLEAR); BILIRUBIN NEGATIVE (NEGATIVE); COLOR DK YELLOW (YELLOW); GLUCOSE 1000 mg/dL (NEGATIVE); KETONE NEGATIVE (NEGATIVE); NITRITE NEGATIVE (NEGATIVE); PROTEIN 1+ mg/dL (NEGATIVE); UROBILINOGEN NORMAL (NORMAL)
[2018-07-01 22:32] LABS: WHITE CELLS - URINE 0-5 /hpf (0-5)
[2018-07-01 22:33] LABS: BACTERIA FEW /hpf (NONE SEEN); HYALINE CAST 0-5 /lpf (NONE SEEN); RED CELLS - URINE 0-5 /hpf (0-5)
[2018-07-01 23:29] LABS: ALBUMIN 3.5 g/dL (3.4-5.0); ALKALINE PHOSPHATASE 94 U/L (46-116); ALT (SGPT) 25 U/L (10-68); AMYLASE - SERUM 32 U/L (25-115); BILIRUBIN - TOTAL 0.21 mg/dL (0.2-1.3); CALC OSMOLALITY 278 mosm/kg (275-300); CALCIUM 8.5 mg/dL (8.5-10.1); CARBON DIOXIDE 24.5 mmol/L (21.0-32.0); CHLORIDE - SERUM 102 mmol/L (98-107); CREATININE - SERUM 0.7 mg/dL (0.6-1.3); GLUCOSE 159 mg/dL (74-106); LIPASE 124 U/L (73-393); POTASSIUM - SERUM 3.8 mmol/L (3.5-5.1); PROTEIN - SERUM 7.2 g/dL (6.4-8.2); SODIUM 137 mmol/L (136-145); UREA NITROGEN 18 mg/dL (7-18); eGFR NON AFRICAN AMERICAN > 90 mL/min (90-120)
[2018-07-02 04:00] VITALS: BP 157/88
[2018-07-02] MEDS ORDERED: VALIUM10 MG PO (04:25)
[2018-07-02 04:55] VITALS: BP 157/88; BMI 28.9
[2018-07-02 08:11] VITALS: BP 143/91
[2018-07-02 12:32] VITALS: BP 148/80
[2018-07-02 13:56] VITALS: Ht 198.1 cm; Wt 113.4 kg
[2018-07-02 21:10] VITALS: BP 134/78
[2018-07-03 05:07] VITALS: BP 149/79
[2018-07-03 05:40] LABS: BASOPHILS 0.5 % (0-2); EOSINOPHILS 0.7 % (0-7); HEMOGLOBIN 17.7 g/dL (13.5-17.5); IMMATURE GRANULOCYTES 0.4 % (0-5); LYMPHOCYTES 19.7 % (15-50); MCH 31.3 pg (26.0-34.0); MEAN PLATELET VOLUME 10.4 fL (7.4-10.4); MONOCYTES 12.6 % (2-11); NEUTROPHILS 66.1 % (40-80); PLATELET COUNT 226 10x3/uL (130-400); RBC 5.66 10x6/uL (4.20-6.10); RDW 13.9 % (11.5-14.5)
[2018-07-03 05:41] LABS: MCV 91.9 fL (80.0-100.0); WBC 10.2 10x3/uL (4.8-10.8)
[2018-07-03 05:55] LABS: ALBUMIN 3.1 g/dL (3.4-5.0); ALKALINE PHOSPHATASE 53 U/L (46-116); BILIRUBIN - TOTAL 1.08 mg/dL (0.2-1.3); CALCIUM 7.8 mg/dL (8.5-10.1); CARBON DIOXIDE 27.7 mmol/L (21.0-32.0); CHLORIDE - SERUM 102 mmol/L (98-107); GLUCOSE 191 mg/dL (74-106); POTASSIUM - SERUM 4.1 mmol/L (3.5-5.1); PROTEIN - SERUM 6.7 g/dL (6.4-8.2); SODIUM 135 mmol/L (136-145)
[2018-07-03 05:56] LABS: ALT (SGPT) 33 U/L (10-68); CALC OSMOLALITY 278 mosm/kg (275-300); UREA NITROGEN 23 mg/dL (7-18); eGFR NON AFRICAN AMERICAN 79 mL/min (90-120)
[2018-07-03 22:12] VITALS: BP 151/82
[2018-07-04 04:27] VITALS: BP 133/81
[2018-07-04 16:31] VITALS: BP 118/75
[2018-07-04 21:44] VITALS: BP 155/80
== END 2018-07-04 22:10 | disposition home or self-care (01) | DRG 390 ==
LOC: D.ER 21:39 → D.MS 07-02 01:53 → D.EDHOLD 07-02 01:53 → D.MS 07-02 03:19
PROVIDERS: Family Medicine
PROC: 0D9670Z Drainage of Stomach with Drainage Device, Via Natural or Artificial Opening (ICD-10-PCS; principal; 2018-07-02)
DX: K56.50 Intestinal adhesions [bands], unspecified as to partial versus complete obstruction (principal); I25.10 Atherosclerotic heart disease of native coronary artery without angina pectoris; G47.33 Obstructive sleep apnea (adult) (pediatric); F41.9 Anxiety disorder, unspecified; E86.0 Dehydration; R11.2 Nausea with vomiting, unspecified; I25.2 Old myocardial infarction; Z87.891 Personal history of nicotine dependence

== ENCOUNTER 2018-11-10 13:43 | Emergency (ER) | payer MEDICARE, BC ==
[~2018-11-10] VITALS: Ht 198.1 cm; Wt 108.9 kg
[2018-11-10 13:51] VITALS: Ht 198.1 cm; Wt 108.9 kg
[2018-11-10 14:42] LABS: ALBUMIN 3.5 g/dL (3.4-5.0); ALKALINE PHOSPHATASE 56 U/L (46-116); ALT (SGPT) 35 U/L (10-68); BILIRUBIN - TOTAL 0.38 mg/dL (0.2-1.3); CALC OSMOLALITY 272 mosm/kg (275-300); CALCIUM 8.8 mg/dL (8.5-10.1); CARBON DIOXIDE 26.6 mmol/L (21.0-32.0); CHLORIDE - SERUM 99 mmol/L (98-107); CREATININE - SERUM 1.2 mg/dL (0.6-1.3); GLUCOSE 154 mg/dL (74-106); POTASSIUM - SERUM 3.9 mmol/L (3.5-5.1); PROTEIN - SERUM 7.3 g/dL (6.4-8.2); SODIUM 134 mmol/L (136-145); UREA NITROGEN 19 mg/dL (7-18); eGFR NON AFRICAN AMERICAN 64 mL/min (90-120)
[2018-11-10 14:55] LABS: CKMB 3.5 U/L (0.0-3.6); CREATINE KINASE 167 UL (21-232); MAGNESIUM - SERUM 2.2 mg/dL (1.8-2.4); THYROID STIMULATING HORMONE 2.41 uIU/mL (0.36-3.74)
[2018-11-10 14:56] LABS: TROPONIN-I < 0.017 ng/mL (0.000-0.060)
[2018-11-10 15:01] LABS: BASOPHILS 0.3 % (0-2); EOSINOPHILS 0.9 % (0-7); HEMATOCRIT 55.2 % (42.0-54.0); HEMOGLOBIN 18.4 g/dL (13.5-17.5); IMMATURE GRANULOCYTES 0.2 % (0-5); LYMPHOCYTES 16.8 % (15-50); MCH 30.3 pg (26.0-34.0); MCHC 33.3 g/dL (31.0-37.0); MCV 90.8 fL (80.0-100.0); MEAN PLATELET VOLUME 10.2 fL (7.4-10.4); MONOCYTES 8.6 % (2-11); NEUTROPHILS 73.2 % (40-80); PLATELET COUNT 247 10x3/uL (130-400); RBC 6.08 10x6/uL (4.20-6.10); RDW 13.4 % (11.5-14.5)
[2018-11-10 15:43] LABS: APTT 32.7 SECONDS (22.8-39.4); INR 1.03 (0.85-1.17)
[2018-11-10 18:19] VITALS: BP 134/59
== END 2018-11-10 18:20 | disposition other institution (70) ==
LOC: D.ER 13:43
PROVIDERS: Family Medicine
DX: G81.91 Hemiplegia, unspecified affecting right dominant side (principal); R53.1 Weakness

== ENCOUNTER → 2019-07-07 14:14 | Outpatient (CLI) | payer MEDICARE, BC ==
[2018-11-10 13:51] VITALS: BMI 28.8
[~2019-07-07 14:14] MED LIST changes: +BAYER ASPIRIN325 MG PO; +FARXIGA10 MG PO; +LIPITOR40 MG PO; +NIASPAN500 MG PO
== END | disposition home or self-care (01) ==
LOC: D.LABREF 14:14
PROVIDERS: ATTEND Orthopaedic Surgery
DX: M16.12 Unilateral primary osteoarthritis, left hip (principal)

== ENCOUNTER 2019-07-11 16:13 | Inpatient (IN) | payer MEDICARE, BC ==
[~2019-07-11] VITALS: Ht 198.1 cm; Wt 108.9 kg
[~2019-07-11 16:13] MED LIST changes: -BAYER ASPIRIN325 MG PO; -FARXIGA10 MG PO; -LIPITOR40 MG PO; -NIASPAN500 MG PO
[2019-08-02] MEDS ORDERED: BAYER ASPIRIN325 MG PO (14:29)
[2019-08-02] MEDS ORDERED: LIPITOR40 MG PO (14:30)
[2019-08-02] MEDS ORDERED: NIASPAN500 MG PO (14:30)
[2019-08-02] MEDS ORDERED: FARXIGA10 MG PO (14:31)
[2019-08-03] MEDS ORDERED: ADDERALL 30 MG30 MG PO (10:35)
[2019-08-03 11:38] LABS: APPEARANCE CLEAR (CLEAR); BILIRUBIN NEGATIVE (NEGATIVE); COLOR YELLOW (YELLOW); GLUCOSE 1000 mg/dL (NEGATIVE); KETONE NEGATIVE (NEGATIVE); NITRITE NEGATIVE (NEGATIVE); PROTEIN NEGATIVE (NEGATIVE); UROBILINOGEN NORMAL (NORMAL)
[2019-08-03 12:14] LABS: BASOPHILS 0.7 % (0-2); EOSINOPHILS 1.4 % (0-7); HEMATOCRIT 52.4 % (42.0-54.0); HEMOGLOBIN 17.3 g/dL (13.5-17.5); IMMATURE GRANULOCYTES 0.5 % (0-5); LYMPHOCYTES 22.1 % (15-50); MCH 29.5 pg (26.0-34.0); MCV 89.4 fL (80.0-100.0); MEAN PLATELET VOLUME 9.7 fL (7.4-10.4); MONOCYTES 10.2 % (2-11); NEUTROPHILS 65.1 % (40-80); RBC 5.86 10x6/uL (4.20-6.10); RDW 14.3 % (11.5-14.5); WBC 9.2 10x3/uL (4.8-10.8)
[2019-08-03 12:19] LABS: PLATELET COUNT 298 10x3/uL (130-400)
[2019-08-03 12:22] LABS: ANION GAP 12.9 mmol/L (8-16); APTT 33.2 SECONDS (22.8-39.4); CALCIUM 8.9 mg/dL (8.5-10.1); CARBON DIOXIDE 28.4 mmol/L (21.0-32.0); CREATININE - SERUM 1.2 mg/dL (0.6-1.3); POTASSIUM - SERUM 4.3 mmol/L (3.5-5.1)
[2019-08-03 12:23] LABS: INR 1.09 (0.85-1.17); PROTIME 13.6 SECONDS (11.6-15.0)
[2019-08-09] VITALS (12 sets, daily range): BP systolic 128–152; BP diastolic 78–92; BMI 27.7
--- NOTE | 2019-08-09 08:22 | NUR ---
LEFT HIP AND LEG CLEANSED WITH HIBICLEANSE AND ALCOHOL, DRIED WITH STERILE TOWEL, THEN WIPED WITH ALCOHOL ON STERILE TOWEL PRIOR TO PREPPING WITH CHLORAPREP X 2. PLASMA BLADE 6/8 LAMINER FLOW NOT IN USE VANCOMYCIN AND TOBRAMYCIN IN WOUND BED TRAFFIC KEPT TO A MINIMUM IN AND OUT OF ROOM
--- NOTE | 2019-08-09 08:46 | NUR ---
PATIENT RETURN ELECTRODE PAD LOT: [id number] EXP: 12/28/2020
[2019-08-10 01:12] VITALS: BP 135/80
[2019-08-10 05:03] VITALS: BP 154/74
--- NOTE | 2019-08-10 05:19 | NUR ---
I have reviewed this patient and I concur with the Shift Assessment completed by the Licensed Practical Nurse today this shift.
[2019-08-10 05:38] LABS: BASOPHILS 0.2 % (0-2); EOSINOPHILS 0 % (0-7); HEMATOCRIT 43.4 % (42.0-54.0); HEMOGLOBIN 13.9 g/dL (13.5-17.5); IMMATURE GRANULOCYTES 0.3 % (0-5); LYMPHOCYTES 10.2 % (15-50); MCH 28.9 pg (26.0-34.0); MCV 90.2 fL (80.0-100.0); MEAN PLATELET VOLUME 9.7 fL (7.4-10.4); MONOCYTES 11.7 % (2-11); NEUTROPHILS 77.6 % (40-80); PLATELET COUNT 241 10x3/uL (130-400); RBC 4.81 10x6/uL (4.20-6.10); RDW 14.5 % (11.5-14.5); WBC 13.3 10x3/uL (4.8-10.8)
[2019-08-10 05:47] LABS: CALC OSMOLALITY 260 mosm/kg (275-300); CALCIUM 7.5 mg/dL (8.5-10.1); CARBON DIOXIDE 28.2 mmol/L (21.0-32.0); CHLORIDE - SERUM 103 mmol/L (98-107); CREATININE - SERUM 0.9 mg/dL (0.6-1.3); GLUCOSE 149 mg/dL (74-106); SODIUM 129 mmol/L (136-145); UREA NITROGEN 11 mg/dL (7-18); eGFR NON AFRICAN AMERICAN 89 mL/min (90-120)
--- NOTE | 2019-08-10 07:57 | NUR ---
PT RESTING IN BED. CO "I DID NOT GET MY NOSE SPRAY LAST NIGHT." WILL TELL MD THIS AM. NO S/S OF ACUTE DISTRESS. CL IN PLACE.
[2019-08-10 09:23] VITALS: BP 153/78
[2019-08-10 13:49] VITALS: BP 130/73
[2019-08-10 14:55] VITALS: Ht 198.1 cm; Wt 108.9 kg
--- NOTE | 2019-08-10 16:06 | MORECARE ---
CASE MANAGEMENT DISCHARGE SUMMARY PATIENT: JUAN JOSE GARCIA UNIT: [id number] ADM DATE: 08/09/19 AGE: 69 : 49 SEX: M ROOM/BED: D.2209 AUTHOR: AMBAR SANFORD PHYSICIAN: REFERRING PHYSICIAN: ANALILIA GONZALES DO DATE OF SERVICE: 08/10/19 Discharge Plan Patient Name: JUAN JOSE GARCIA [facility] [facility] 1950 Planned Disposition: Home Anticipated Discharge Date: Discharge Date: Expected LOS: Initial Reviewer: [id number] Initial Review Date: 08/09/2019 Generated: 08/10/19 5:06 pm DCPIA - Discharge Planning Initial Assessment Updated by [email or web address]: Flory Mayo on 08/10/19 4:04 pm * Is the patient Alert and Oriented? Yes * How many steps to enter\exit or inside your home? 2/LEVEL * PCP JOY * Pharmacy [facility] * Preadmission Environment Home Alone * ADLs Independent * Equipment Walker * List name and contact numbers for known caregivers / representatives who currently or will assist patient after discharge: ANGIE (WILL BE STAYING WITH HIM) MARTÍNEZ PEARL [phone] * Verbal permission to speak to the caregivers and representatives has been obtained from the patient. N/A * Community resources currently utilized None * Additional services required to return to the preadmission environment? Yes * Can the patient safely return to the preadmission environment? Yes * Has this patient been hospitalized within the prior 30 days at any hospital? No Patient Name: JUAN JOSE GARCIA Page [id number] at 1606 All edits/amendments must be made on the electronic document DICTATION DATE: 08/10/19 160 FREEZING MACHINE OPERATOR: LYUDMILA 08/10/19 160 RPT#: [id number] DC DATE: STATUS: ADM IN [facility] [address] [place] [address] END OF REPORT
--- NOTE | 2019-08-10 16:13 | MORECARE ---
CASE MANAGEMENT DISCHARGE SUMMARY PATIENT: JUAN JOSE GARCIA UNIT: [id number] ADM DATE: 08/09/19 AGE: 69 : 49 SEX: M ROOM/BED: D.2206 AUTHOR: JUVENALDOC PHYSICIAN: REFERRING PHYSICIAN: ANALILIA GONZALES DO DATE OF SERVICE: 08/10/19 Discharge Plan Patient Name: JUAN JOSE GARCIA Facility: [facility]:[place] : 1950 Planned Disposition: Home Anticipated Discharge Date: Discharge Date: Expected LOS: Initial Reviewer: [email or web address] Initial Review Date: 08/09/2019 Generated: 08/10/19 5:13 pm Comments DCP- Discharge Planning Updated by [email or web address]: Flory Mayo on 08/10/19 3:[address] Patient Name: JUAN JOSE GARCIA Admission Status: Elective Accout number: [id number] Admission Date: 08-09-2019 : 1950 Admission Diagnosis: Attending: ANALILIA GONZALES Current LOS: 1 Anticipated DC Date: Planned Disposition: Home Primary Insurance: MEDICARE A & B Discharge Planning Comments: CM met with patient to complete initial dc planning assessment. CM educated patient on the CM role and verbal consent given by patient to complete assessment. Patient lives at home by himself where he is independent with his care. At discharge patient plans to return home and feels this is a safe discharge. Yecenia will be the one to drive him home and stay with him while he is recovering and will be the one to drive him to his OP PT appointments. CM discussed availability of home health, rehab services, and medical equipment. He has a walker in the room, but asked for a BSC. He did not care what DME company it will be ordered from. CM will make his first OP PT appointment. Copy will be in his DC instructions. CM will make first appointment. Patient denied known discharge needs at this time. CM will continue to follow and will assist as needed with dc plans/needs. Silver Plater: Flory Mayo DCPIA - Discharge Planning Initial Assessment Updated by [email or web address]: Flory Mayo on 08/10/19 4:04 pm * Is the patient Alert and Oriented? Yes * How many steps to enter\exit or inside your home? 2/LEVEL * PCP JOY * Pharmacy [facility] * Preadmission Environment Home Alone * ADLs Independent * Equipment Walker * List name and contact numbers for known caregivers / representatives who currently or will assist patient after discharge: YECENIA (WILL BE STAYING WITH HIM) MARTÍNEZ PEARL [phone] * Verbal permission to speak to the caregivers and representatives has been obtained from the patient. N/A * Community resources currently utilized None * Additional services required to return to the preadmission environment? Yes * Can the patient safely return to the preadmission environment? Yes * Has this patient been hospitalized within the prior 30 days at any hospital? No Coverage Notice Reviewer: [email or web address] Lukas Mayo Notice Issued Date-Time: 08/10/2019 14:00 Notice Type: Patient Choice Letter Notice Delivered To: Patient Relationship to Patient: Transfer Professor Name: Delivery Method: HAND - Hand Delivered Hyacinth Days: Prior Verbal Notification: Recipient Understood Notice: Yes Recipient Signature: Yes Med Rec Note Co-signed by Attending: Coverage Notice Comment: josesito for dme Last DP export: 08/10/19 3:06 p Patient Name: JUAN JOSE GARCIA Page [id number] at 1613 All edits/amendments must be made on the electronic document DICTATION DATE: 08/10/191612 LABORATORY TECHNOLOGY TEACHER: LYUDMILA 08/10/191612 RPT#: [id number] DC DATE: STATUS: ADM IN [facility] [address] [place] [address] END OF REPORT
[2019-08-10 17:47] VITALS: BP 133/80
--- NOTE | 2019-08-10 18:41 | NUR ---
PT RESTING IN BED. NORCO GIVEN FOR PAIN PER MD ORDER. NO S/S OF ACUTE DISTRESS. CL IN PLACE.
[2019-08-10 20:53] VITALS: BP 129/66
[2019-08-11 00:51] VITALS: BP 126/66
--- NOTE | 2019-08-11 04:48 | NUR ---
I have reviewed this patient and I concur with the Shift Assessment completed by the Licensed Practical Nurse today this shift.
--- NOTE | 2019-08-11 04:49 | NUR ---
I have reviewed this patient and I concur with the Shift Assessment completed by the Licensed Practical Nurse today this shift.
[2019-08-11 05:06] VITALS: BP 147/78
[2019-08-11 06:35] LABS: BASOPHILS 0.3 % (0-2); EOSINOPHILS 0.2 % (0-7); HEMOGLOBIN 13.6 g/dL (13.5-17.5); IMMATURE GRANULOCYTES 0.5 % (0-5); LYMPHOCYTES 10.1 % (15-50); MCH 29.1 pg (26.0-34.0); MCHC 32.4 g/dL (31.0-37.0); MCV 89.7 fL (80.0-100.0); MEAN PLATELET VOLUME 9.8 fL (7.4-10.4); MONOCYTES 14.9 % (2-11); PLATELET COUNT 289 10x3/uL (130-400); RBC 4.68 10x6/uL (4.20-6.10); RDW 14.7 % (11.5-14.5)
[2019-08-11 06:54] LABS: CALC OSMOLALITY 273 mosm/kg (275-300); CALCIUM 7.9 mg/dL (8.5-10.1); CARBON DIOXIDE 25.9 mmol/L (21.0-32.0); CHLORIDE - SERUM 103 mmol/L (98-107); CREATININE - SERUM 0.9 mg/dL (0.6-1.3); GLUCOSE 130 mg/dL (74-106); POTASSIUM - SERUM 4.3 mmol/L (3.5-5.1); SODIUM 136 mmol/L (136-145); UREA NITROGEN 12 mg/dL (7-18); eGFR NON AFRICAN AMERICAN 89 mL/min (90-120)
[2019-08-11 07:53] VITALS: BP 131/73
--- NOTE | 2019-08-11 07:56 | NUR ---
PT RESTING IN BED. DENIES ANY NEEDS. NO S/S OF ACUTE DISTRESS. CL IN PLACE.
--- NOTE | 2019-08-11 09:05 | MORECARE ---
CASE MANAGEMENT DISCHARGE SUMMARY PATIENT: JUAN JOSE GARCIA UNIT: [id number] ADM DATE: 08/09/19 AGE: 69 : 49 SEX: M ROOM/BED: D.2207 AUTHOR: AMBAR SANFORD PHYSICIAN: REFERRING PHYSICIAN: ANALILIA GONZALES DO DATE OF SERVICE: 08/11/19 Discharge Plan Patient Name: JUAN JOSE GARCIA Facility: [facility]:[place] : 1950 Planned Disposition: Home Anticipated Discharge Date: Discharge Date: Expected LOS: Initial Reviewer: [email or web address] Initial Review Date: 08/09/2019 Generated: 08/11/19 10:05 am Comments DCP- Discharge Planning Updated by [email or web address]: Flory Mayo on 08/11/19 8:[address] OP PT APPOINTMENT SET UP FOR Aug @ 1:45. SPOKE WITH JESUSITA. HE WILL DO PT AT [facility]. DCP- Discharge Planning Updated by [email or web address]: Flory Mayo on 08/10/19 3:[address] Patient Name: JUAN JOSE GARCIA Admission Status: Elective Accout number: [id number] Admission Date: 08-09-2019 : 1950 Admission Diagnosis: Attending: ANALILIA GONZALES Current LOS: 1 Anticipated DC Date: Planned Disposition: Home Primary Insurance: MEDICARE A & B Discharge Planning Comments: CM met with patient to complete initial dc planning assessment. CM educated patient on the CM role and verbal consent given by patient to complete assessment. Patient lives at home by himself where he is independent with his care. At discharge patient plans to return home and feels this is a safe discharge. Yecenia will be the one to drive him home and stay with him while he is recovering and will be the one to drive him to his OP PT appointments. CM discussed availability of home health, rehab services, and medical equipment. He has a walker in the room, but asked for a BSC. He did not care what DME company it will be ordered from. CM will make his first OP PT appointment. Copy will be in his DC instructions. CM will make first appointment. Patient denied known discharge needs at this time. CM will continue to follow and will assist as needed with dc plans/needs. Quality Control Microbiology Supervisor: Flory Mayo DCPIA - Discharge Planning Initial Assessment Updated by [email or web address]: Flory Mayo on 08/10/19 4:04 pm * Is the patient Alert and Oriented? Yes * How many steps to enter\exit or inside your home? 2/LEVEL * PCP JOY * Pharmacy [facility] * Preadmission Environment Home Alone * ADLs Independent * Equipment Walker * List name and contact numbers for known caregivers / representatives who currently or will assist patient after discharge: YECENIA (WILL BE STAYING WITH HIM) MARTÍNEZ PEARL [phone] * Verbal permission to speak to the caregivers and representatives has been obtained from the patient. N/A * Community resources currently utilized None * Additional services required to return to the preadmission environment? Yes * Can the patient safely return to the preadmission environment? Yes * Has this patient been hospitalized within the prior 30 days at any hospital? No Coverage Notice Reviewer: [id number] - Flory Mayo Notice Issued Date-Time: 08/10/2019 14:00 Notice Type: Patient Choice Letter Notice Delivered To: Patient Relationship to Patient: Sales Representative Advertising Name: Delivery Method: HAND - Hand Delivered Hyacinth Days: Prior Verbal Notification: Recipient Understood Notice: Yes Recipient Signature: Yes Med Rec Note Co-signed by Attending: Coverage Notice Comment: josesito for dme Last DP export: 08/10/19 3:13 p Patient Name: JUAN JOSE GARCIA Page [id number] at 0905 All edits/amendments must be made on the electronic document DICTATION DATE: 08/11/19904 LENS FINISHER: LYUDMILA 08/11/19904 RPT#: [id number] DC DATE: STATUS: ADM IN [facility] [address] [place] [address] END OF REPORT
--- NOTE | 2019-08-11 09:12 | MORECARE ---
CASE MANAGEMENT DISCHARGE SUMMARY PATIENT: JUAN JOSE GARCIA UNIT: [id number] ADM DATE: 08/09/19 AGE: 69 : 49 SEX: M ROOM/BED: D.2209 AUTHOR: JUVENAL,DOC PHYSICIAN: REFERRING PHYSICIAN: ANALILIA GONZALES DO DATE OF SERVICE: 08/11/19 Discharge Plan Patient Name: JUAN JOSE GARCIA Facility: [facility]:[place] : 1950 Planned Disposition: Home Anticipated Discharge Date: Discharge Date: Expected LOS: Initial Reviewer: [email or web address] Initial Review Date: 08/09/2019 Generated: 08/11/19 10:12 am Comments DCP- Discharge Planning Updated by [email or web address]: Flory Mayo on 08/11/19 8:[address] ORDER FOR A 3 IN 1 BSC SENT TO [facility], SPOKE WITH SKINNY THEY WILL DELIVER TO HOSPITAL. PATIENT HAS A WALKER IN ROOM DCP- Discharge Planning Updated by [email or web address]: Flory Mayo on 08/11/19 8:[address] OP PT APPOINTMENT SET UP FOR Aug @ 1:45. SPOKE WITH JESUSITA. HE WILL DO PT AT [facility]. DCP- Discharge Planning Updated by [email or web address]: Flory Mayo on 08/10/19 3:[address] Patient Name: JUAN JOSE GARCIA Admission Status: Elective Accout number: [id number] Admission Date: 08-09-2019 : 1950 Admission Diagnosis: Attending: ANALILIA GONZALES Current LOS: 1 Anticipated DC Date: Planned Disposition: Home Primary Insurance: MEDICARE A & B Discharge Planning Comments: CM met with patient to complete initial dc planning assessment. CM educated patient on the CM role and verbal consent given by patient to complete assessment. Patient lives at home by himself where he is independent with his care. At discharge patient plans to return home and feels this is a safe discharge. Yecenia will be the one to drive him home and stay with him while he is recovering and will be the one to drive him to his OP PT appointments. CM discussed availability of home health, rehab services, and medical equipment. He has a walker in the room, but asked for a BSC. He did not care what DME company it will be ordered from. CM will make his first OP PT appointment. Copy will be in his DC instructions. CM will make first appointment. Patient denied known discharge needs at this time. CM will continue to follow and will assist as needed with dc plans/needs. Business Partner: Flory Mayo DCPIA - Discharge Planning Initial Assessment Updated by [email or web address]: Flory Mayo on 08/10/19 4:04 pm * Is the patient Alert and Oriented? Yes * How many steps to enter\exit or inside your home? 2/LEVEL * PCP JOY * Pharmacy [facility] * Preadmission Environment Home Alone * ADLs Independent * Equipment Walker * List name and contact numbers for known caregivers / representatives who currently or will assist patient after discharge: YECENIA (WILL BE STAYING WITH HIM) MARTÍNEZ DAE [phone] * Verbal permission to speak to the caregivers and representatives has been obtained from the patient. N/A * Community resources currently utilized None * Additional services required to return to the preadmission environment? Yes * Can the patient safely return to the preadmission environment? Yes * Has this patient been hospitalized within the prior 30 days at any hospital? No External Providers External Provider: [facility] Next Contact Date: Service Request Date: Service Type: Resolution: Reviewer: Comments: Coverage Notice Reviewer: [id number] - Flory Mayo Notice Issued Date-Time: 08/10/2019 14:00 Notice Type: Patient Choice Letter Notice Delivered To: Patient Relationship to Patient: Ultimate Hoops Scoreboard Operator Name: Delivery Method: HAND - Hand Delivered Hyacinth Days: Prior Verbal Notification: Recipient Understood Notice: Yes Recipient Signature: Yes Med Rec Note Co-signed by Attending: Coverage Notice Comment: josesito for dme Last DP export: 08/11/19 8:05 Patient Name: JUAN JOSE GARCIA Page [phone] at 0912 All edits/amendments must be made on the electronic document DICTATION DATE: 08/11/19911 STOCK LIFTER: LYUDMILA 08/11/19911 RPT#: [id number] DC DATE: STATUS: ADM IN [facility] [address] [place] [address] END OF REPORT
[2019-08-11 12:23] VITALS: BP 114/70
--- NOTE | 2019-08-11 16:41 | NUR ---
Rehab Note- Acute Inpatient Rehab prescreen order received. The patient is POD #2. Have spoken with MICHELLE Crandall. Will follow at this time. Thank you for this referral! Alyssa Dickerson RN Clinical Liaison, [facility] Rehab
[2019-08-11 17:01] VITALS: BP 116/69
--- NOTE | 2019-08-11 18:16 | NUR ---
PT RESTING IN BED. NO S/S OF ACUTE DISTRESS. CL IN PLACE.
[2019-08-11 20:00] VITALS: BP 131/74
--- NOTE | 2019-08-11 21:39 | NUR ---
LYING QUEITLY WITH NO DISTRESS NOTED. RESP UNLABORED. SL TO RIGHT HAND INTACT WITHOUT REDNESS OR EDEMA NOTED. DRESSING TO LEFT HIP INTACT WIHTOUT DRAINAGE NOTED.DENIES DISCOMFORT AT THIS TIME. CL IN REACH
[2019-08-12] VITALS: BP 134/77
--- NOTE | 2019-08-12 00:47 | NUR ---
I have reviewed this patient and I concur with the Shift Assessment completed by the Licensed Practical Nurse today this shift.
[2019-08-12 04:00] VITALS: BP 149/82
[2019-08-12 06:23] LABS: CALC OSMOLALITY 274 mosm/kg (275-300); CALCIUM 8.3 mg/dL (8.5-10.1); CARBON DIOXIDE 25.3 mmol/L (21.0-32.0); CHLORIDE - SERUM 102 mmol/L (98-107); CREATININE - SERUM 0.9 mg/dL (0.6-1.3); GLUCOSE 137 mg/dL (74-106); POTASSIUM - SERUM 4.1 mmol/L (3.5-5.1); SODIUM 136 mmol/L (136-145); eGFR NON AFRICAN AMERICAN 89 mL/min (90-120)
[2019-08-12 06:27] LABS: UREA NITROGEN 16 mg/dL (7-18)
[2019-08-12 06:47] LABS: BASOPHILS 0.3 % (0-2); EOSINOPHILS 0.2 % (0-7); HEMATOCRIT 40.3 % (42.0-54.0); HEMOGLOBIN 13.1 g/dL (13.5-17.5); IMMATURE GRANULOCYTES 0.4 % (0-5); LYMPHOCYTES 11.4 % (15-50); MCH 29.2 pg (26.0-34.0); MCHC 32.5 g/dL (31.0-37.0); MCV 89.8 fL (80.0-100.0); MEAN PLATELET VOLUME 9.7 fL (7.4-10.4); MONOCYTES 14.6 % (2-11); NEUTROPHILS 73.1 % (40-80); PLATELET COUNT 322 10x3/uL (130-400); RBC 4.49 10x6/uL (4.20-6.10); RDW 14.6 % (11.5-14.5); WBC 13.9 10x3/uL (4.8-10.8)
--- NOTE | 2019-08-12 07:19 | NUR ---
ALERT AND ORIENTED. LUNGS CLEAR BILATERALLY. HEART SOUNDS S1 AND S2 HEARD IN ALL [place]. BOWEL SOUNDS ACTIVE X 4. DRSG C/D/I TO LEFT HIP. DENIES PAIN. DENIES NEEDS. BED LOW. FALL PRECAUTIONS IN PLACE. CALL VERAS AND PERSONAL ITEMS IN REACH. WILL CONTINUE TO MONITOR.
--- NOTE | 2019-08-12 07:34 | NUR ---
DANNY HOSE TO LEFT FOOT REMOVED PER DR GONZALES TO CHECK FOR SORES D/T PATIENT C/O BURNING IN FOOT. SKIN INTACT. NO SORES OR REDNESS NOTED. GABAPENTEN ORDERED BY DR GONZALES. PATIENT EDUCATION PROVIDED. EDUCATION PROVIDED ON NEED FOR UA. SUPPLIES GIVEN TO PATIENT. VERBALIZED UNDERSTANDING.
[2019-08-12 08:15] VITALS: BP 125/72
[2019-08-12 08:23] LABS: APPEARANCE CLEAR (CLEAR); BILIRUBIN NEGATIVE (NEGATIVE); COLOR YELLOW (YELLOW); GLUCOSE 250 mg/dL (NEGATIVE); KETONE NEGATIVE (NEGATIVE); NITRITE NEGATIVE (NEGATIVE); PROTEIN NEGATIVE (NEGATIVE); SPECIFIC GRAVITY 1.015 (1.005-1.020)
--- NOTE | 2019-08-12 10:34 | NUR ---
RESTING IN BED. DENIES NEEDS. WILL CONTINUE TO MONITOR.
[2019-08-12] MEDS ORDERED: ELIQUIS2.5 MG PO (13:01)
[2019-08-12] MEDS ORDERED: HYDROCODON-ACE1 EA10 PO (13:02)
[2019-08-12] MEDS ORDERED: VISTARIL50 MG PO (13:02)
[2019-08-12] MEDS ORDERED: KEFLEX500 MG PO (13:02)
--- NOTE | 2019-08-12 14:02 | NUR ---
SITTING IN CHAIR AT BEDSIDE. DENIES NEEDS. WILL CONTINUE TO MONITOR.
--- NOTE | 2019-08-12 14:33 | MORECARE ---
CASE MANAGEMENT DISCHARGE SUMMARY PATIENT: JUAN JOSE GARCIA UNIT: [id number] ADM DATE: 08/09/19 AGE: 69 : 49 SEX: M ROOM/BED: D.2209 AUTHOR: JUVENAL,DOC PHYSICIAN: REFERRING PHYSICIAN: ANALILIA GONZALES DO DATE OF SERVICE: 08/12/19 Discharge Plan Patient Name: JUAN JOSE GARCIA Facility: [facility]:[place] : 1950 Planned Disposition: Home Anticipated Discharge Date: Discharge Date: Expected LOS: Initial Reviewer: [email or web address] Initial Review Date: 08/09/2019 Generated: 08/12/19 3:33 pm Comments DCP- Discharge Planning Updated by [id number]: Flory Mayo on 08/12/19 1:[address] PATIENT TO BE DISCHARGED TO INPATIENT REHAB TODAY, IMM SERVED AND EXPLAINED CM TO FOLLOW NEEDED DCP- Discharge Planning Updated by [email or web address]: Flory Mayo on 08/11/19 8:[address] ORDER FOR A 3 IN 1 BSC SENT TO [facility], SPOKE WITH SKINNY THEY WILL DELIVER TO HOSPITAL. PATIENT HAS A WALKER IN ROOM DCP- Discharge Planning Updated by [email or web address]: Flory Mayo on 08/11/19 8:[address] OP PT APPOINTMENT SET UP FOR Aug @ 1:45. SPOKE WITH JESUSITA. HE WILL DO PT AT [facility]. DCP- Discharge Planning Updated by [id number]: Flory Mayo on 08/10/19 3:[address] Patient Name: JUAN JOSE GARCIA Admission Status: Elective Accout number: [id number] Admission Date: 08-09-2019 : 1950 Admission Diagnosis: Attending: ANALILIA GONZALES Current LOS: 1 Anticipated DC Date: Planned Disposition: Home Primary Insurance: MEDICARE A & B Discharge Planning Comments: CM met with patient to complete initial dc planning assessment. CM educated patient on the CM role and verbal consent given by patient to complete assessment. Patient lives at home by himself where he is independent with his care. At discharge patient plans to return home and feels this is a safe discharge. Yecenia will be the one to drive him home and stay with him while he is recovering and will be the one to drive him to his OP PT appointments. CM discussed availability of home health, rehab services, and medical equipment. He has a walker in the room, but asked for a BSC. He did not care what DME company it will be ordered from. CM will make his first OP PT appointment. Copy will be in his DC instructions. CM will make first appointment. Patient denied known discharge needs at this time. CM will continue to follow and will assist as needed with dc plans/needs. Sliver Handler: Flory Mayo DCPIA - Discharge Planning Initial Assessment Updated by [email or web address]: Flory Mayo on 08/10/19 4:04 pm * Is the patient Alert and Oriented? Yes * How many steps to enter\exit or inside your home? 2/LEVEL * PCP JOY * Pharmacy [facility] * Preadmission Environment Home Alone * ADLs Independent * Equipment Walker * List name and contact numbers for known caregivers / representatives who currently or will assist patient after discharge: YECENIA (WILL BE STAYING WITH HIM) MARTÍNEZ PEARL [phone] * Verbal permission to speak to the caregivers and representatives has been obtained from the patient. N/A * Community resources currently utilized None * Additional services required to return to the preadmission environment? Yes * Can the patient safely return to the preadmission environment? Yes * Has this patient been hospitalized within the prior 30 days at any hospital? No Coverage Notice Reviewer: [id number] Lukas Mayo Notice Issued Date-Time: 08/10/2019 14:00 Notice Type: Patient Choice Letter Notice Delivered To: Patient Relationship to Patient: Associate Trainer Name: Delivery Method: HAND - Hand Delivered Hyacinth Days: Prior Verbal Notification: Recipient Understood Notice: Yes Recipient Signature: Yes Med Rec Note Co-signed by Attending: Coverage Notice Comment: josesito for dme Reviewer: [email or web address] Lukas Mayo Notice Issued Date-Time: 08/12/2019 14:26 Notice Type: IM Discharge Notice Notice Delivered To: Patient Relationship to Patient: Associate Trainer Name: Delivery Method: HAND - Hand Delivered Hyacinth Days: Prior Verbal Notification: Recipient Understood Notice: Yes Recipient Signature: Yes Med Rec Note Co-signed by Attending: Coverage Notice Comment: Last DP export: 08/11/19 8:12 Patient Name: JUAN JOSE GARCIA Page 18501 at 1433 All edits/amendments must be made on the electronic document DICTATION DATE: 08/12/191432 CONSTRUCTION RIGGER: LYUDMILA 08/12/191432 RPT#: [id number] DC DATE: STATUS: ADM IN [facility] [address] [place] [address] END OF REPORT
--- NOTE | 2019-08-12 15:00 | NUR ---
RESTING IN BED. DENIES NEEDS. WILL CONTINUE TO MONITOR.
--- NOTE | 2019-08-12 15:39 | NUR ---
DISCHARGE EDUCATION PROVIDED BOTH WRITTEN AND VERBAL. VERBALIZED UNDERSTANDING. DENIES FURTHER QUESTIONS. IV REMOVED FROM RIGHT HAND WITH TIP INTACT. DRSG CHANGED TO LEFT HIP. NO S/SX INFECTION NOTED. REPORT CALLED TO INPATIENT REHAB. DENIES QUESTIONS. PATIENT TRANSFERRED TO INPT REHAB ROOM 2843A.
--- NOTE | 2019-08-15 11:41 | MORECARE ---
CASE MANAGEMENT DISCHARGE SUMMARY PATIENT: JUAN JOSE GARCIA UNIT: [id number] ADM DATE: 08/09/19 AGE: 69 : [birth year] SEX: M ROOM/BED: D.2209 AUTHOR: JUVENAL,DOC PHYSICIAN: REFERRING PHYSICIAN: ANALILIA GONZALES DO DATE OF SERVICE: 08/15/19 Discharge Plan Patient Name: JUAN JOSE GARCIA Facility: [facility]:[place] : 1950 Planned Disposition: Home Anticipated Discharge Date: Discharge Date: 08/12/2019 Expected LOS: 0 Initial Reviewer: [email or web address] Initial Review Date: 08/09/2019 Generated: 08/15/19 12:40 pm Comments DCP- Discharge Planning Updated by [email or web address]: Flory Mayo on 08/12/19 1:[address] PATIENT TO BE DISCHARGED TO INPATIENT REHAB TODAY, IMM SERVED AND EXPLAINED CM TO FOLLOW NEEDED DCP- Discharge Planning Updated by [id number]: Flory Mayo on 08/11/19 8:[address] ORDER FOR A 3 IN 1 BSC SENT TO [facility], SPOKE WITH [facility] THEY WILL DELIVER TO HOSPITAL. PATIENT HAS A WALKER IN ROOM DCP- Discharge Planning Updated by [email or web address]: Flory Mayo on 08/11/19 8:[address] OP PT APPOINTMENT SET UP FOR Aug @ 1:45. SPOKE WITH JESUSITA. HE WILL DO PT AT [facility]. DCP- Discharge Planning Updated by [email or web address]: Flory Mayo on 08/10/19 3:[address] Patient Name: JUAN JOSE GARCIA Admission Status: Elective Accout number: [id number] Admission Date: 08-09-2019 : 1950 Admission Diagnosis: Attending: ANALILIA GONZALES Current LOS: 1 Anticipated DC Date: Planned Disposition: Home Primary Insurance: MEDICARE A & B Discharge Planning Comments: CM met with patient to complete initial dc planning assessment. CM educated patient on the CM role and verbal consent given by patient to complete assessment. Patient lives at home by himself where he is independent with his care. At discharge patient plans to return home and feels this is a safe discharge. Yecenia will be the one to drive him home and stay with him while he is recovering and will be the one to drive him to his OP PT appointments. CM discussed availability of home health, rehab services, and medical equipment. He has a walker in the room, but asked for a BSC. He did not care what DME company it will be ordered from. CM will make his first OP PT appointment. Copy will be in his DC instructions. CM will make first appointment. Patient denied known discharge needs at this time. CM will continue to follow and will assist as needed with dc plans/needs. Cash Posting Clerk: Flory Mayo DCPIA - Discharge Planning Initial Assessment Updated by [id number]: Flory Mayo on 08/10/19 4:04 pm * Is the patient Alert and Oriented? Yes * How many steps to enter\exit or inside your home? 2/LEVEL * PCP JOY * Pharmacy [facility] * Preadmission Environment Home Alone * ADLs Independent * Equipment Walker * List name and contact numbers for known caregivers / representatives who currently or will assist patient after discharge: YECENIA (WILL BE STAYING WITH HIM) MARTÍNEZ PEARL [phone] * Verbal permission to speak to the caregivers and representatives has been obtained from the patient. N/A * Community resources currently utilized None * Additional services required to return to the preadmission environment? Yes * Can the patient safely return to the preadmission environment? Yes * Has this patient been hospitalized within the prior 30 days at any hospital? No Coverage Notice Reviewer: [id number] Lukas Mayo Notice Issued Date-Time: 08/10/2019 14:00 Notice Type: Patient Choice Letter Notice Delivered To: Patient Relationship to Patient: Senior Assistant Manager Name: Delivery Method: HAND - Hand Delivered Hyacinth Days: Prior Verbal Notification: Recipient Understood Notice: Yes Recipient Signature: Yes Med Rec Note Co-signed by Attending: Coverage Notice Comment: josesito for dme Reviewer: [id number] Lukas Mayo Notice Issued Date-Time: 08/12/2019 14:26 Notice Type: IM Discharge Notice Notice Delivered To: Patient Relationship to Patient: Senior Assistant Manager Name: Delivery Method: HAND - Hand Delivered Hyacinth Days: Prior Verbal Notification: Recipient Understood Notice: Yes Recipient Signature: Yes Med Rec Note Co-signed by Attending: Coverage Notice Comment: Last DP export: 08/12/19 1:33 Patient Name: JUAN JOSE GARCIA Page [phone] at 1141 All edits/amendments must be made on the electronic document DICTATION DATE: 08/15/19 114 SADDLE TREE STITCHER: LYUDMILA 08/15/19 1140 RPT#: [id number] DC DATE:08/12/19 STATUS: DIS IN [facility] [address] [place] [address] END OF REPORT
--- NOTE | 2019-09-27 07:01 | OP ---
PATIENT NAME: JUAN JOSE TRACEY MEDICAL RECORD: [id number] :49 LOCATION:[id number] ADMISSION DATE:08/09/19 SURGEON: RAJESH GONZALES DO DATE OF OPERATION: 08/09/2019 PROCEDURE PERFORMED: Left total hip arthroplasty. PREOPERATIVE DIAGNOSIS: Left hip osteoarthritis. POSTOPERATIVE DIAGNOSIS: Left hip osteoarthritis. INDICATIONS: Mr. Tracey is a 69-year-old male who has had left hip osteoarthritis for quite some time. He has been dealing with it with self-medicating. He was tired of dealing with the pain and lack of motion. He had the right hip done years ago and would like to have the left hip done. He is aware of the risks and benefits of the procedure including infection, bleeding, damage to nerves and vessels, need for further surgery, blood clots, and even , failure of implant, loosening and any other problems associated with a total joint arthroplasty including implant failure. After discussing these, he signed the consent. SURGEON: Rajesh Gonzales DO DESCRIPTION OF PROCEDURE: The patient was taken to the operative suite after given a block by anesthesia in the preoperative area, laid in the supine position, intubated and then put over on the [place] table, which was positioned. The left hip was prepped and draped in sterile fashion. He was given 2 grams of Ancef and 80 mg gentamicin and a gram of TXA. Left hip was then prepped and draped and a timeout had been performed. The incision then began over the tensor fascia hipolito muscle. Careful dissection was made down to the fascia. This fascia was taken anterior to the muscle belly, posterior and then the interval opened up between the rectus. This rectus interval was then opened and then the ascending branch of the lateral femoral circumflex artery was tied off and coagulated with Aquamantys and then cut. The capsule was then exposed, it was quite thick. The capsule was then opened and tagged and Hohmanns retractors were placed on either side of the femoral neck. The femoral neck was then cut and then the head had been basically fused to the pelvis, it was difficulty to get out. I got it removed and then the neck cut was redone as it was a little tall. The reaming then began, first medializing and then up to a 60. The 60 cup was then impacted into place. The liner was then put in. The femur was then exposed. Releases were made in the iliofemoral ligament as well as the posterior capsule was released due to the tightness and then a canal finder and cookie cutter was used. We then broached up to a 13, the 13 fit well. We trialled to a standard, the standard seemed to fit well and we needed a little more length, we then put a +3 neck with a regular thing. The 13 stem was put in with a high offset and +3 neck. This was then reduced, it was in good position on the x-ray, AP pelvis and no fractures seen in the femur. The wound was then thoroughly irrigated with Bactisure and then 1.5 liters of normal saline. Then Surgicel and vancomycin and tobramycin powder were placed in the wound. The tensor fascia hipolito was then closed with #1 Vicryl in a [id number] fashion and running locking stitch and the skin was closed with 2-0 Vicryl in inverted interrupted fashion, 4-0 Monocryl ran on the skin and Prineo placed on the skin. Adaptic and Telfa and Tegaderm were then placed on the hip all by Ja San APRN. He was awakened and taken to recovery in stable condition. OPERATIVE REPORT [id number] JUAN JOSE TRACEY BLOOD LOSS: Approximately 300 mL. COMPLICATIONS: None. TRANSINT:[id number] Voice Confirmation ID: [id number] DOCUMENT ID: [id number] 09/26/2019 Edited for rosa Schaefer. RAJESH GONZALES DO at 0701 CC: [id number] DICTATION DATE: 08/09/19 1030 BABYSITTER: 08/09/19 1048 DIS IN 08/12/19 1910 [place] [id number]
== END 2019-08-12 16:05 | DRG 470 ==
LOC: D.SDCHOLD 08-09 05:00 → D.MS 08-09 05:00 → D.SDCHOLD 08-09 07:00 → D.MS 08-09 11:37
PROVIDERS: Internal Medicine Nephrology; ADMIT Orthopaedic Surgery; ATTEND Orthopaedic Surgery
PROC: 0SRB0J9 Replacement of Left Hip Joint with Synthetic Substitute, Cemented, Open Approach (ICD-10-PCS; principal; 2019-08-09 07:00)
DX: M16.12 Unilateral primary osteoarthritis, left hip (principal); I10 Essential (primary) hypertension; E11.9 Type 2 diabetes mellitus without complications; I25.10 Atherosclerotic heart disease of native coronary artery without angina pectoris; I25.2 Old myocardial infarction

== ENCOUNTER 2019-08-12 16:23 | Inpatient (IN) | payer MEDICARE, BC ==
[~2019-08-12] VITALS: Ht 198.1 cm; Wt 108.9 kg
[~2019-08-12 16:23] MED LIST changes: +BAYER ASPIRIN325 MG PO; +ELIQUIS2.5 MG PO; +FARXIGA10 MG PO; +HYDROCODON-ACE1 EA10 PO; +KEFLEX500 MG PO; +LIPITOR40 MG PO; +NIASPAN500 MG PO; +VISTARIL50 MG PO
--- NOTE | 2019-08-12 16:50 | NUR ---
RECIEVED FROM MED-SURG TO ROOM 1114J;ORIENTED TO ROOM AND SURROUNDINGS.CL IN REACH
--- NOTE | 2019-08-12 19:30 | NUR ---
BEDSIDE REPORT COMPLETE. INTRODUCED SELF TO PT AND PT FAMILY. PT LYING IN BED EYES CLOSED RESTING. EASILY AROUSED WITH VERBAL STIMULI. DENIES ANY NEEDS OR PAIN. VS STABLE. SHIFT ASSESSMENT COMPLETE. CALL LIGHT AND WATER WITHIN REACH, FALL PRECAUTIONS IN PLACE. WILL CONTINUE TO MONITOR
[2019-08-12 19:48] VITALS: BP 142/80
[2019-08-12 20:53] VITALS: BP 142/80; BMI 27.7
--- NOTE | 2019-08-12 23:53 | NUR ---
QUIET HOURS. PT LYING IN BED EYES CLOSED RESTING QUIETLY. RR EVEN AND UNLABORED. WILL CONTINUE TO MONITOR
--- NOTE | 2019-08-13 03:29 | NUR ---
PT LYING IN BED SUPINE EYES CLOSED RESTING QUIETLY. NO SIGNS OF DISTRESS NOTED. WILL CONTINUE TO MONITOR
[2019-08-13 07:01] LABS: BASOPHILS 0.3 % (0-2); EOSINOPHILS 0.8 % (0-7); HEMATOCRIT 39.2 % (42.0-54.0); HEMOGLOBIN 12.9 g/dL (13.5-17.5); IMMATURE GRANULOCYTES 0.5 % (0-5); MCH 29.7 pg (26.0-34.0); MCHC 32.9 g/dL (31.0-37.0); MCV 90.1 fL (80.0-100.0); MEAN PLATELET VOLUME 9.4 fL (7.4-10.4); MONOCYTES 16.6 % (2-11); NEUTROPHILS 67.8 % (40-80); PLATELET COUNT 323 10x3/uL (130-400); RBC 4.35 10x6/uL (4.20-6.10); RDW 14.5 % (11.5-14.5)
[2019-08-13 07:14] LABS: CALC OSMOLALITY 273 mosm/kg (275-300); CALCIUM 8.4 mg/dL (8.5-10.1); CARBON DIOXIDE 26.8 mmol/L (21.0-32.0); CHLORIDE - SERUM 101 mmol/L (98-107); GLUCOSE 133 mg/dL (74-106); SODIUM 135 mmol/L (136-145); UREA NITROGEN 18 mg/dL (7-18); eGFR NON AFRICAN AMERICAN 78 mL/min (90-120)
[2019-08-13 08:18] VITALS: BP 112/72
--- NOTE | 2019-08-13 09:10 | NUR ---
PT AM MEDS ADMINISTERED. PT DENIES NEEDS. WCTM.
[2019-08-13 10:09] VITALS: Ht 198.1 cm; Wt 108.9 kg
--- NOTE | 2019-08-13 17:44 | NUR ---
PT EATING DINNER, DENIES NEEDS. WCTM.
[2019-08-13 19:01] VITALS: BP 117/78
--- NOTE | 2019-08-13 19:01 | NUR ---
GREETED PATIENT AND INTRODUCED MYSELF HIS NURSE. PATIENT IS LAYING IN BED WATCHING TV. RESPIRATIONS EVEN. NO S/S OF DISTRESS. VITAL SIGNS OBTAINED. STATES THAT PAIN IS 5/10 ON LEFT HIP (INCISIONAL) CALL LIGHT IN REACH.
--- NOTE | 2019-08-14 00:29 | NUR ---
PT. RESTING QUIETLY WITH EYES CLOSED. RESPIRATIONS EVEN. NO S/S OF DISTRESS. SR UP X 2. BED IN LOWEST POSITION. CALL LIGHT IN REACH.
[2019-08-14 07:53] VITALS: BP 132/73
--- NOTE | 2019-08-14 07:57 | NUR ---
AWAKE, ALERT AND ORIENTED. BREAKFAST SERVED. NO C/O PAIN. CL IN REACH.
--- NOTE | 2019-08-14 14:02 | NUR ---
VISITOR AT . NO DISTRESS NOTED. CL IN REACH.
--- NOTE | 2019-08-14 16:08 | NUR ---
NO CHANGE IN ASSESSMENT. VISITOR AT BS. NO C/O PAIN. CL IN REACH.
--- NOTE | 2019-08-14 19:06 | NUR ---
GREETED PATIENT AND INTRODCUED MYSELF HIS NURSE. PATIENT IS LAYING IN BED IN SUPINE POSITION. HOB AT 35 DEGREES WATCHING TV. RESPIRAITONS EVEN. NO S/S OF DISTRESS. STATES THAT PAIN IS 5/10 IN LEFT LEG. DENIES ANY FURTHER NEEDS AT THIS TIME. CALL LIGHT IN REACH.
[2019-08-14 19:15] VITALS: BP 117/75
--- NOTE | 2019-08-15 00:36 | NUR ---
PT. RESTING QUIETLY WITH EYES CLOSED. RESPIRATIONS EVEN. NO S/S OF DISTRESS. SR UP X 2. CALL LIGHT IN REACH.
--- NOTE | 2019-08-15 05:59 | NUR ---
PT. RESTING QUIETLY WITH EYES CLOSED. RESPIRAITONS EVEN. NO S/S OF DISTRESS. CALL LIGHT IN REACH.
[2019-08-15 06:15] LABS: BASOPHILS 0.5 % (0-2); EOSINOPHILS 2.9 % (0-7); HEMATOCRIT 39.8 % (42.0-54.0); HEMOGLOBIN 12.9 g/dL (13.5-17.5); IMMATURE GRANULOCYTES 0.6 % (0-5); LYMPHOCYTES 18.5 % (15-50); MCH 29.1 pg (26.0-34.0); MCHC 32.4 g/dL (31.0-37.0); MCV 89.6 fL (80.0-100.0); MEAN PLATELET VOLUME 9.3 fL (7.4-10.4); MONOCYTES 14.5 % (2-11); PLATELET COUNT 372 10x3/uL (130-400); RBC 4.44 10x6/uL (4.20-6.10); RDW 14.4 % (11.5-14.5)
[2019-08-15 06:20] LABS: WBC 8.4 10x3/uL (4.8-10.8)
[2019-08-15 06:38] LABS: CALC OSMOLALITY 280 mosm/kg (275-300); CALCIUM 8.7 mg/dL (8.5-10.1); CARBON DIOXIDE 28.3 mmol/L (21.0-32.0); CHLORIDE - SERUM 101 mmol/L (98-107); CREATININE - SERUM 0.8 mg/dL (0.6-1.3); GLUCOSE 126 mg/dL (74-106); SODIUM 138 mmol/L (136-145); UREA NITROGEN 21 mg/dL (7-18); eGFR NON AFRICAN AMERICAN > 90 mL/min (90-120)
[2019-08-15 07:47] VITALS: BP 161/62
[2019-08-15 07:54] VITALS: BP 132/69
--- NOTE | 2019-08-15 08:00 | NUR ---
PATIENT SITTING UP IN BED TO EAT BREAKFAST. CALL LIGHT WITHIN REACH. VOICES NO NEEDS AT THIS TIME. WILL CONTINUE WITH PLAN OF CARE
--- NOTE | 2019-08-15 10:53 | NUR ---
PATIENT IN REHAB ROOM. WORKING WITH PHYSICAL THERAPIST. DENIES ANY PAIN/DISC AT THIS TIME.
--- NOTE | 2019-08-15 12:55 | NUR ---
PATIENT SITTING UP IN WHEELCHAIR AT BEDSIDE TO EAT LUNCH. VOICES NO NEEDS. CALL LIGHT WITHIN REACH
--- NOTE | 2019-08-15 15:25 | NUR ---
OCCUPATIONAL THERAPIST ASST WITH PATIENT SHOWER.
--- NOTE | 2019-08-15 19:43 | NUR ---
PATIENT RECEIVED SITTING UP IN WHEELCHAIR. ASSESSMENT & VITAL SIGNS DONE. NO C/O PAIN OR DISTRESS. BED LOW. CALL LIGHT WITHIN REACH. WILL CONTINUE TO MONITOR.
[2019-08-15 20:47] VITALS: BP 119/75
--- NOTE | 2019-08-16 02:31 | NUR ---
PATIENT EYES CLOSED. RESPIRATIONS 18 & EVEN. BED LOW. CALL LIGHT & URINAL WITHIN REACH. WILL CONTINUE TO MONITOR.
--- NOTE | 2019-08-16 03:32 | NUR ---
I have reviewed this patient and I concur with the Shift Assessment completed by the Licensed Practical Nurse today this shift.
--- NOTE | 2019-08-16 08:15 | NUR ---
PT RESTING IN BED WITH EYES OPEN CALL LIGHT IN REACH WILL MONITER
[2019-08-16 08:22] VITALS: BP 130/73
--- NOTE | 2019-08-16 12:30 | NUR ---
I have reviewed this patient and I concur with the Shift Assessment completed by the Licensed Practical Nurse today this shift.
--- NOTE | 2019-08-16 14:03 | NUR ---
Nutrition Follow-up: Chart reviewed. Patient out of room at time of RD visit. Diet: Diabetic PO intake: 75-100% Meds reviwed. Labs noted: Glucose 230. Skin assessment reviwed. Wt: 240# (08/13/19), no new wt. +BM Continue current nutrition regimen. RD Following.
--- NOTE | 2019-08-16 18:29 | NUR ---
PT RESTING IN BED WITH EYES OPEN CALL LIGHT IN REACH WILL MONITER
[2019-08-16 20:00] VITALS: BP 134/70
--- NOTE | 2019-08-16 20:00 | NUR ---
PATIENT RECEIVED SITTING UP IN BED. FAMILY IN ROOM. ASSESSMENT & VITAL SIGNS DONE. NO C/O PAIN OR DISTRESS. BED LOW. CALL LIGHT WITHIN REACH. WILL CONTINUE TO MONITOR.
--- NOTE | 2019-08-17 02:14 | NUR ---
I have reviewed this patient and I concur with the Shift Assessment completed by the Licensed Practical Nurse today this shift.
[2019-08-17 07:49] VITALS: BP 132/74
--- NOTE | 2019-08-17 08:00 | NUR ---
Shift Assmt completed.Breakfast given.
--- NOTE | 2019-08-17 14:00 | NUR ---
drsg to left hip changed.filled with dark red blood.cleaned and 4x4's applied and secured with medipore tape.
--- NOTE | 2019-08-17 16:30 | NUR ---
PATIENT ADMITTED TO REHAB FROM ACUTE FLOOR. HIS EX AND GIRLFRIEND ATTENDED CARE TEAM TODAY AND THEIR QUESTIONS AND CONCERNS WERE ADDRESSED. PATIENT DISCHARGE PLANS ARE TO RETURN HOME AND THE GIRLFRIEND WILL ASSIT WITH HIS CARE. DR. HAMILTON IS HIS PCP. DME AT HOME IS A WALKER AND BEDSIDE COMODE. WILL CONTINUE TO FOLLOW WITH PATIENT
--- NOTE | 2019-08-17 17:00 | NUR ---
will continue to monitor.
--- NOTE | 2019-08-17 19:54 | NUR ---
PATIENT RECEIVED SITTING UP IN BED WATCHING TV. ASSESSMENT & VITAL SIGNS DONE. NO C/O PAIN OR DISTRESS. PRESSURE DRESSING DRY & INTACT TO LEFT HIP. BED LOW. CALL LIGTH WITHIN REACH. WILL CONTINUE TO MONITOR.
[2019-08-17 21:13] VITALS: BP 130/66
--- NOTE | 2019-08-18 02:15 | NUR ---
I have reviewed this patient and I concur with the Shift Assessment completed by the Licensed Practical Nurse today this shift.
--- NOTE | 2019-08-18 03:40 | NUR ---
PATIENT EYES CLOSED. RESPIRATIONS 18 & EVEN. BED LOW. CALL LIGHT & URINAL WITHIN REACH. WILL CONTINUE TO MONITOR.
--- NOTE | 2019-08-18 08:00 | NUR ---
PT RESTING IN BED WITH EYES OPEN CALL LIGHT IN REACH WILL MONITER
--- NOTE | 2019-08-18 16:28 | NUR ---
I have reviewed this patient and I concur with the Shift Assessment completed by the Licensed Practical Nurse today this shift.
--- NOTE | 2019-08-18 17:15 | NUR ---
PT RESTING IN BED WITH EYES OPEN CALL LIGHT IN REACH WILL MONITER
[2019-08-18 19:30] VITALS: BP 112/73
--- NOTE | 2019-08-18 19:30 | NUR ---
BEDSIDE REPORT COMPLETE. PT LYING IN BED EYES CLOSED RESTING. EASILY AROUSED WITH VERBAL STIMULI. DENIES ANY NEEDS OR PAIN. NO SIGNS OF ACUTE DISTRESS NOTED. VS STABLE. SHIFT ASSESSMENT COMPLETE. CL IN REACH. FALL PRECAUTIONS IN PLACE. WILL CONTINUE TO MONITOR
--- NOTE | 2019-08-18 23:31 | NUR ---
QUIET HOURS. PT LYING IN BED EYES CLOSED RESTING QUIETLY. NO SIGNS OF DISTRESS NOTED. CL IN REACH. WILL CONTINUE TO MONITOR
--- NOTE | 2019-08-19 03:19 | NUR ---
PT LYING IN BED EYES CLOSED RESTING.
--- NOTE | 2019-08-19 05:30 | NUR ---
ASSISTED PT TO SHOWER WHILE IN SHOWER NOTICED LEFT HIP INCISION STARTED BLEEDING APPLIED PRESSURE FOR 15 MIN DID NOT STOP BLEEDING. APPLIED TEMPORARY PRESSURE DRESSING IN ORDER TO MOVE PT FROM SHOWER TO BED AND APPLIED SAND BAG TO LEFT HIP IN ORDER TO GET BLEEDING TO STOP.
[2019-08-19 05:59] LABS: BASOPHILS 0.6 % (0-2); EOSINOPHILS 4.3 % (0-7); HEMATOCRIT 41.1 % (42.0-54.0); HEMOGLOBIN 13.1 g/dL (13.5-17.5); IMMATURE GRANULOCYTES 1.3 % (0-5); LYMPHOCYTES 19.3 % (15-50); MCHC 31.9 g/dL (31.0-37.0); MCV 91.1 fL (80.0-100.0); MEAN PLATELET VOLUME 9.4 fL (7.4-10.4); MONOCYTES 11.5 % (2-11); RBC 4.51 10x6/uL (4.20-6.10); RDW 14.7 % (11.5-14.5); WBC 8.5 10x3/uL (4.8-10.8)
--- NOTE | 2019-08-19 06:15 | NUR ---
LEFT HIP INCISION BLEEDING HAS SLOWED DOWN. SANDBAG LEFT IN PLACE. WILL CONTINUE TO MONITOR
[2019-08-19 06:20] LABS: CALC OSMOLALITY 276 mosm/kg (275-300); CALCIUM 8.5 mg/dL (8.5-10.1); CHLORIDE - SERUM 102 mmol/L (98-107); CREATININE - SERUM 0.9 mg/dL (0.6-1.3); GLUCOSE 117 mg/dL (74-106); POTASSIUM - SERUM 4.6 mmol/L (3.5-5.1); SODIUM 137 mmol/L (136-145); UREA NITROGEN 18 mg/dL (7-18); eGFR NON AFRICAN AMERICAN 89 mL/min (90-120)
[2019-08-19 06:24] LABS: PLATELET COUNT 452 10x3/uL (130-400)
[2019-08-19] MEDS ORDERED: OXYCODONE HCL5 M1 PO (07:43)
[2019-08-19] MEDS ORDERED: MIRALAX17 GM PO (07:43)
--- NOTE | 2019-08-19 09:46 | NUR ---
DR GONZALES NOTIFIED OF HIP DRAINAGE. DR GONZALES GAVE ORDERS TO SEND TO ACUTE FOR WASHING OUT AND DEBRIDEMENT OF LEFT HIP. PT TAKEN TO [facility] ACUTE ROOM 2238. REPORT GIVEN TO RAJENDRA LARA.
[2019-08-20] MEDS ORDERED: FARXIGA10 MG PO (08:24)
--- NOTE | 2019-08-22 09:45 | NUR ---
due to change in medical condtion patient discharged from rehab and admitted to acute floor on 08/19/19
--- NOTE | 2019-08-31 09:12 | RHP ---
PATIENT: JUAN JOSE GARCIA MEDICAL RECORD: [id number] ACCOUNT: [id number] [facility] [birth year] ADMISSION DATE: 08/12/19 REHABILITATION HISTORY AND PHYSICAL EXAMINATION POST ADMISSION PHYSICIAN EXAMINATION DATE OF ADMISSION: 08/12/2019 ADMITTING DIAGNOSES: Severe osteoarthritis, status post total hip arthroplasty. HISTORY OF PRESENT ILLNESS: The patient is a 69-year-old gentleman who actually is a patient of mine who presented after having pain in his left hip. He has had severe osteoarthritis. He has been seen by me for pain management and followup. He was seen by Dr. Craven and eventually felt like it was worthwhile to go ahead and replace his hip. He got a past medical history of diabetes. He has got history of IN, hypertension, arthritis, anxiety, tobacco use. Drinks socially. Has some neuropathy in both feet. He is on CPAP at night for obstructive sleep apnea. He has had chronic pain secondary to joint replacement, right knee and left hip pain. After surgery, he did notice to have a little bit of a sinus tachycardia with heart rate greater than 100. His electrolytes were all pretty good. He is currently postop day #5. He has continued to have some pain control. He is on DVT and GI prophylaxis, electrolyte protocol. He has got self-care deficits. These lives alone. These are all barriers to his discharge home. He will be working with physical therapy. He is ambulating 50 feet with a rolling walker. He is mod assist with bed mobility. He has very unsteady gait and is a high fall risk. Prior to this admission, he was completely independent with mobility and ADLs and living alone. He will require intensive PT and OT to get back to his regular activities of daily living. COMORBIDITIES: Include left hip osteoarthritis, hypertension, diabetes, anxiety, former tobacco use. PAST MEDICAL HISTORY: Significant for neuropathy, diabetes, history of IN in the past, pneumonia, arthritis, chronic back pain, joint replacement, hip pain, anxiety, kidney stones, and tobacco use. PAST SURGICAL HISTORY: Includes gallbladder surgery, appendectomy. He has had a left knee scope and left hip replacement. ALLERGIES: No known drug allergies. CURRENT MEDICATIONS: Include Protonix 40 mg daily, Niaspan 500 mg at bedtime, Keflex 500 mg b.i.d., Eliquis 2.5 mg b.i.d., atorvastatin 40 mg at bedtime, Valium 10 mg t.i.d. p.r.n., hydroxyzine 50 mg q.i.d. p.r.n. rash or itching, and [place] 10/325 one tab q.4-6 hours p.r.n. HABITS: No alcohol or tobacco use. FAMILY HISTORY: Noncontributory. SOCIAL HISTORY: The patient hopes to return back home and get back to his prior level of functioning. REVIEW OF SYSTEMS: HISTORY AND PHYSICAL [id number] JUAN JOSE GARCIA GENERAL: Does complain of some weakness at times. HEENT: Denies cold, cough, or congestion. CARDIOVASCULAR: He denies chest pain. PHYSICAL EXAMINATION: VITAL SIGNS: Stable, afebrile. GENERAL: A well-developed gentleman, in no acute distress, alert upon exam. HEENT: Normocephalic and atraumatic. Mucosa moist. NECK: Supple. No lymphadenopathy. LUNGS: Clear at this time. No wheezing or rales. HEART: Irregular rate and rhythm. No murmurs, rubs or gallops. ABDOMEN: Soft, benign, and nondistended. Positive bowel sounds times 4. EXTREMITIES: Normal swelling and postop changes noted. NEUROLOGIC: He is mainly intact. LABORATORY DATA: White count is 12,000, H&H 12.9 and 39.2, and platelet count was 323. His sodium is 135, potassium 4.0, BUN and creatinine of 18 and 1.0, and blood sugar is noted to be 133. ASSESSMENT: This is a 69-year-old gentleman admitted to the rehab with a working diagnosis of severe osteoarthritis of the hip, status post total hip replacement. The patient has potential to make improvement. We instituted the following multidisciplinary therapies including, but not limited to physical, occupational, respiratory, speech, nutritional services, prosthetics and orthotics. Given his complex medical condition and risk for more complications, rehabilitation services cannot be provided at a low level of care such a skilled nurse facility. PLAN: 1. Admit to [facility] for an inpatient therapy to include the following disciplines; A. Physical therapy to improve gait, all transfer skills and bed mobility to a modified independent level. B. Occupational therapy to a modified independent level. C. Case management to assist with discharge planning and placement options. D. Nutrition to assist with nutritional needs. E. Rehabilitation nursing to assist in monitoring the patient's underlying medical conditions and to assist with any type of bowel or bladder management. 2. The patient's current medication and medical care will be continued. 3. The patient will be placed on standard fall precautions. 4. The patient's estimated length of stay is approximately 7-10 days. 5. Discuss the patient during care team staff meeting this week. We will go ahead and continue on home meds where appropriate and I will see him again in the a.m. TRANSINT:[id number] Voice Confirmation ID: [id number] DOCUMENT ID: [id number] BECKI notes whether there has been none or any medical/functional change since admission: - No change since pre-admission screen. BECKI attests patient continues to be appropriate for IRF: - Continues to be appropriate. HISTORY AND PHYSICAL [id number] JUAN JOSE GARCIA,CORNEL VAZQUEZ MD at 0912 CC: [id number] DICTATION DATE: 08/14/19 1049 SPA THERAPIST: 08/14/19 1227 DIS IN 08/19/19 [facility] [address] [place] [address]
== END 2019-08-19 09:47 | disposition short-term general hospital (02) | DRG 560 ==
LOC: D.REHAB 16:23
PROVIDERS: ADMIT Emergency Medicine; ATTEND Emergency Medicine
DX: Z47.1 Aftercare following joint replacement surgery (principal); T81.40XA Infection following a procedure, unspecified, initial encounter; Z96.642 Presence of left artificial hip joint; M16.12 Unilateral primary osteoarthritis, left hip; I10 Essential (primary) hypertension; E11.9 Type 2 diabetes mellitus without complications; F41.9 Anxiety disorder, unspecified; Z87.891 Personal history of nicotine dependence

== ENCOUNTER 2019-08-19 09:40 | Inpatient (IN) | payer MEDICARE, BC ==
[~2019-08-19] VITALS: Ht 198.1 cm; Wt 108.6 kg
[~2019-08-19 09:40] MED LIST changes: +MIRALAX17 GM PO; +OXYCODONE HCL5 M1 PO
[2019-08-19 10:26] LABS: BASOPHILS 0.7 % (0-2); EOSINOPHILS 3.5 % (0-7); HEMATOCRIT 41.3 % (42.0-54.0); HEMOGLOBIN 13.2 g/dL (13.5-17.5); IMMATURE GRANULOCYTES 0.7 % (0-5); LYMPHOCYTES 19.1 % (15-50); MCH 29.1 pg (26.0-34.0); MCV 91.2 fL (80.0-100.0); MONOCYTES 9.8 % (2-11); NEUTROPHILS 66.2 % (40-80); PLATELET COUNT 428 10x3/uL (130-400); RBC 4.53 10x6/uL (4.20-6.10); RDW 14.5 % (11.5-14.5); WBC 8.9 10x3/uL (4.8-10.8)
[2019-08-19 11:31] LABS: ERYTHROCYTE SEDIMENTATION RATE 45 mm/hr (0-20)
[2019-08-19 13:13] VITALS: BP 125/76
[2019-08-19 13:23] VITALS: BMI 27.7
--- NOTE | 2019-08-19 13:25 | NUR ---
PT RESTING IN BED WITH EYES OPEN, ALERT AND ORIENTED WITH NO S/S OF DISTRESS AT THIS TIME. IV LOCATED TO LEFT FOREARM CURRENTLY SL. DENIES NEEDS AT THIS TIME, WILL CONT TO MONITOR.
[2019-08-19 16:57] VITALS: BP 118/70
--- NOTE | 2019-08-19 22:00 | NUR ---
RECEIVED PT TO FLOOR FROM SURGERY. PT RESTING QUIETLY. RATES PAIN 4/10. VITALS SIGNS STABLE. APPLIED SCD'S. START VANCOMYCIN NEXT DOSE - A DOSE WAS GIVEN IN SURGERY. NO OTHER NEEDS. WILL CONTINUE TO MONITOR.
[2019-08-20] VITALS (7 sets, daily range): BP systolic 108–164; BP diastolic 64–78; Ht 198.1 cm; Wt 108.6 kg
[2019-08-20 05:15] LABS: HEMATOCRIT 41.6 % (42.0-54.0); HEMOGLOBIN 13.3 g/dL (13.5-17.5); MCH 29.4 pg (26.0-34.0); MCV 91.8 fL (80.0-100.0); RBC 4.53 10x6/uL (4.20-6.10); RDW 14.6 % (11.5-14.5)
[2019-08-20] MEDS ORDERED: FARXIGA10 MG PO (08:24)
[2019-08-20 08:47] LABS: BASOPHILS 0.4 % (0-2); EOSINOPHILS 0.8 % (0-7); HEMATOCRIT 43.1 % (42.0-54.0); HEMOGLOBIN 13.8 g/dL (13.5-17.5); IMMATURE GRANULOCYTES 0.4 % (0-5); LYMPHOCYTES 11.8 % (15-50); MCH 29.3 pg (26.0-34.0); MCV 91.5 fL (80.0-100.0); MEAN PLATELET VOLUME 9.1 fL (7.4-10.4); MONOCYTES 9.6 % (2-11); PLATELET COUNT 407 10x3/uL (130-400); RBC 4.71 10x6/uL (4.20-6.10); RDW 14.4 % (11.5-14.5); WBC 12.5 10x3/uL (4.8-10.8)
[2019-08-20 09:04] LABS: ALBUMIN 2.7 g/dL (3.4-5.0); ALKALINE PHOSPHATASE 91 U/L (46-116); ALT (SGPT) 37 U/L (10-68); BILIRUBIN - TOTAL 0.86 mg/dL (0.2-1.3); CALC OSMOLALITY 270 mosm/kg (275-300); CALCIUM 8.2 mg/dL (8.5-10.1); CARBON DIOXIDE 25.5 mmol/L (21.0-32.0); CHLORIDE - SERUM 102 mmol/L (98-107); CREATININE - SERUM 0.8 mg/dL (0.6-1.3); GLUCOSE 89 mg/dL (74-106); POTASSIUM - SERUM 4.8 mmol/L (3.5-5.1); PROTEIN - SERUM 6.2 g/dL (6.4-8.2); SODIUM 135 mmol/L (136-145); UREA NITROGEN 17 mg/dL (7-18); eGFR NON AFRICAN AMERICAN > 90 mL/min (90-120)
--- NOTE | 2019-08-20 09:35 | NUR ---
PT ALERT X 4. BREATH SOUNDS CLEAR BILAT. IV TO LEFT FOREARM, PATENT, DRESSING CDI. DRESSING TO LEFT HIP CDI, HERMINIA DRAIN MINIMAL BLOODY OUTPUT, DAVOL DRAIN IN PLACE BLOODY OUTPUT. PT REPORTING PAIN OF 6/10, MEDICATED PER ORDERS, WILL MONITOR. SCD'S IN USE. BED LOW, CALL LIGHT IN REACH. NO OTHER NEEDS AT THIS TIME.
[2019-08-21 00:21] VITALS: BP 110/67
[2019-08-21 04:45] VITALS: BP 126/66
[2019-08-21 06:20] LABS: HEMATOCRIT 41.9 % (42.0-54.0); HEMOGLOBIN 13.4 g/dL (13.5-17.5); MCH 29.2 pg (26.0-34.0); MCV 91.3 fL (80.0-100.0); MEAN PLATELET VOLUME 9.3 fL (7.4-10.4); RBC 4.59 10x6/uL (4.20-6.10); RDW 14.6 % (11.5-14.5); WBC 11.5 10x3/uL (4.8-10.8)
[2019-08-21 08:25] VITALS: BP 136/72
[2019-08-21 09:25] LABS: BASOPHILS 0.5 % (0-2); EOSINOPHILS 2.4 % (0-7); HEMATOCRIT 40.2 % (42.0-54.0); IMMATURE GRANULOCYTES 0.4 % (0-5); MCH 29.5 pg (26.0-34.0); MCHC 32.3 g/dL (31.0-37.0); MCV 91.2 fL (80.0-100.0); MEAN PLATELET VOLUME 9.2 fL (7.4-10.4); MONOCYTES 10.5 % (2-11); NEUTROPHILS 76.2 % (40-80); PLATELET COUNT 452 10x3/uL (130-400); RBC 4.41 10x6/uL (4.20-6.10); RDW 14.4 % (11.5-14.5); WBC 12.3 10x3/uL (4.8-10.8)
--- NOTE | 2019-08-21 09:44 | NUR ---
PT ALERT X 4. BREATH SOUNDS CLEAR BILAT. IV TO LEFT FOREARM PATENT, DRESSING CDI. DRESSING TO LEFT HIP CDI. PT REPORTING PAIN OF 3/10, WILL MONITOR. BED LOW, CALL LIGHT IN REACH. NO OTHER NEEDS AT THIS TIME.
[2019-08-21 09:50] LABS: ALBUMIN 2.4 g/dL (3.4-5.0); ALKALINE PHOSPHATASE 85 U/L (46-116); CALCIUM 7.7 mg/dL (8.5-10.1); CARBON DIOXIDE 28.1 mmol/L (21.0-32.0); CHLORIDE - SERUM 103 mmol/L (98-107); PROTEIN - SERUM 5.8 g/dL (6.4-8.2); SODIUM 136 mmol/L (136-145); UREA NITROGEN 14 mg/dL (7-18); eGFR NON AFRICAN AMERICAN 78 mL/min (90-120)
[2019-08-21 09:51] LABS: ALT (SGPT) 26 U/L (10-68); CALC OSMOLALITY 277 mosm/kg (275-300); GLUCOSE 193 mg/dL (74-106)
[2019-08-21 12:38] VITALS: BP 126/76
[2019-08-21 16:09] VITALS: BP 137/68
[2019-08-21 21:09] VITALS: BP 178/64
[2019-08-22 04:47] VITALS: BP 128/71
--- NOTE | 2019-08-22 05:30 | NUR ---
LEFT FOREARM IV PULLED OUT AND LEAKING. REMOVED CATHETER INTACT. RIGHT WRIST IV NOT PATENT, REMOVED CATHETER INTACT. RESITED 22G 1ST ATTEMPT TO LEFT UPPER ARM. RESUMED IV FLUIDS. NO OTHER NEEDS. WILL CONTINUE TO MONITOR.
[2019-08-22 05:49] LABS: BASOPHILS 0.3 % (0-2); EOSINOPHILS 3.7 % (0-7); HEMATOCRIT 40.3 % (42.0-54.0); HEMOGLOBIN 12.8 g/dL (13.5-17.5); IMMATURE GRANULOCYTES 0.6 % (0-5); MCHC 31.8 g/dL (31.0-37.0); MCV 91.4 fL (80.0-100.0); MEAN PLATELET VOLUME 9.1 fL (7.4-10.4); MONOCYTES 12.6 % (2-11); NEUTROPHILS 67.8 % (40-80); PLATELET COUNT 452 10x3/uL (130-400); RBC 4.41 10x6/uL (4.20-6.10); RDW 14.4 % (11.5-14.5); WBC 10.2 10x3/uL (4.8-10.8)
[2019-08-22 06:22] LABS: ALBUMIN 2.3 g/dL (3.4-5.0); ALKALINE PHOSPHATASE 80 U/L (46-116); ALT (SGPT) 24 U/L (10-68); BILIRUBIN - TOTAL 0.64 mg/dL (0.2-1.3); CALC OSMOLALITY 276 mosm/kg (275-300); CALCIUM 8.5 mg/dL (8.5-10.1); CARBON DIOXIDE 29.2 mmol/L (21.0-32.0); CHLORIDE - SERUM 102 mmol/L (98-107); POTASSIUM - SERUM 4.1 mmol/L (3.5-5.1); PROTEIN - SERUM 6.3 g/dL (6.4-8.2); SODIUM 138 mmol/L (136-145); UREA NITROGEN 13 mg/dL (7-18); eGFR NON AFRICAN AMERICAN 78 mL/min (90-120)
[2019-08-22 06:23] LABS: GLUCOSE 121 mg/dL (74-106)
--- NOTE | 2019-08-22 07:43 | NUR ---
PT RESTING IN BED. NO SIGNS OF DISTRESS. IV TO LEFT FORARM PATENT NO REDNESS OR TENDERNESS. HAS INCISION TO LEFT HIP AND THIGH. WOUND VAC PRESENT. COMPLAINS OF PAIN. MEDICATIONS GIVEN. DENIES ANY FURTHER NEED AT THIS TIME. CALL LIGHT IN REACH. BED LOW POSITION. NO FAMILY AT BEDSIDE AT THIS TIME.
[2019-08-22 08:01] VITALS: BP 115/57
[2019-08-22 13:23] VITALS: BP 148/88
--- NOTE | 2019-08-22 13:48 | NUR ---
I have reviewed this patient and I concur with the Shift Assessment completed by the Licensed Practical Nurse today this shift.
[2019-08-22 16:49] VITALS: BP 109/66
--- NOTE | 2019-08-22 17:30 | MORECARE ---
CASE MANAGEMENT DISCHARGE SUMMARY PATIENT: JUAN JOSE GARCIA UNIT: [id number] ADM DATE: 08/19/19 AGE: 69 : 49 SEX: M ROOM/BED: D.2239 AUTHOR: AMBAR SANFORD PHYSICIAN: REFERRING PHYSICIAN: ANALILIA GONZALES DO DATE OF SERVICE: 08/22/19 Discharge Plan Patient Name: JUAN JOSE GARCIA [facility] [facility] 1950 Planned Disposition: Home Anticipated Discharge Date: Discharge Date: Expected LOS: Initial Reviewer: [email or web address] Initial Review Date: 08/22/2019 Generated: 08/22/19 6:30 pm DCPIA - Discharge Planning Initial Assessment Updated by [email or web address]: Phyllis Rai on 08/22/19 5:28 pm * Is the patient Alert and Oriented? Yes * How many steps to enter\exit or inside your home? 2/0 * PCP Dr. Rouse * Pharmacy [facility] * Preadmission Environment Acute Inpatient Rehab * Facility Name [facility] * ADLs Partial Dependent * Partial ADLs (Assistance needed) Ambulation * Equipment Bedside Commode Rolling Walker * List name and contact numbers for known caregivers / representatives who currently or will assist patient after discharge: Cat Calvillo [phone] * Verbal permission to speak to the caregivers and representatives has been obtained from the patient. Yes * Community resources currently utilized None * Additional services required to return to the preadmission environment? Yes * Can the patient safely return to the preadmission environment? Yes * Has this patient been hospitalized within the prior 30 days at any hospital? Yes Patient Name: JUAN JOSE GACRIA Page 38331 at 1730 All edits/amendments must be made on the electronic document DICTATION DATE: 08/22/191729 PAYROLL CLERK: LYUDMILA 08/22/191729 RPT#: [id number] DC DATE: STATUS: ADM IN [facility] [address] [place] [address] END OF REPORT
--- NOTE | 2019-08-22 17:40 | MORECARE ---
CASE MANAGEMENT DISCHARGE SUMMARY PATIENT: JUAN JOSE GARCIA UNIT: [id number] ADM DATE: 08/19/19 AGE: 69 : 49 SEX: M ROOM/BED: D.2239 AUTHOR: JUVENAL,DOC PHYSICIAN: REFERRING PHYSICIAN: ANALILIA GONZALES DO DATE OF SERVICE: 08/22/19 Discharge Plan Patient Name: JUAN JOSE GARCIA Facility: [facility]:[place] : 1950 Planned Disposition: Home Anticipated Discharge Date: Discharge Date: Expected LOS: Initial Reviewer: [email or web address] Initial Review Date: 08/22/2019 Generated: 08/22/19 6:39 pm Comments DCP- Discharge Planning Updated by [email or web address]: Phyllis Rai on 08/22/19 4:[address] Patient Name: JUAN JOSE GARCIA Admission Status: Elective Accout number: [id number] Admission Date: 08-19-2019 : 1950 Admission Diagnosis: Attending: ANALILIA GONZALES Current LOS: 3 Anticipated DC Date: Planned Disposition: Home Primary Insurance: MEDICARE A & B Discharge Planning Comments: CM met with patient to complete initial dc planning assessment. CM educated patient on the CM role and verbal consent given by patient to complete assessment. Patient lives at home alone. At discharge patient plans to return and feels this is a safe discharge. He states his ex wives (Yecenia and Jacey will be staying with him 25/05). CM discussed availability of home health, rehab services, and medical equipment. I informed patient that PT recommends rehab or a skilled unit. He states "I'm going home". He does agree to home health for PT. He may be too high risk to fall for outpatient PT at this time. NEGRITA signed for [facility]. CM will continue to follow and will assist as needed with dc plans/needs. Solar Manager: Phyllis Rai DCPIA - Discharge Planning Initial Assessment Updated by [id number]: Phyllis Rai on 08/22/19 5:28 pm * Is the patient Alert and Oriented? Yes * How many steps to enter\\exit or inside your home? 2/0 * PCP Dr. Rouse * Pharm[facility] * Preadmission Environment Acute Inpatient Rehab * Facility Name [facility] * ADLs Partial Dependent * Partial ADLs (Assistance needed) Ambulation * Equipment Bedside Commode Rolling Walker * List name and contact numbers for known caregivers / representatives who currently or will assist patient after discharge: Cat Calvillo [phone] * Verbal permission to speak to the caregivers and representatives has been obtained from the patient. Yes * Community resources currently utilized None * Additional services required to return to the preadmission environment? Yes * Can the patient safely return to the preadmission environment? Yes * Has this patient been hospitalized within the prior 30 days at any hospital? Yes Coverage Notice Reviewer: [id number] Lukas Rai Notice Issued Date-Time: 08/22/2019 17:35 Notice Type: Patient Choice Letter Notice Delivered To: Patient Relationship to Patient: Self Strand Buncher Fine Wire Name: Delivery Method: HAND - Hand Delivered Hyacinth Days: Prior Verbal Notification: Recipient Understood Notice: Yes Recipient Signature: Yes Med Rec Note Co-signed by Attending: Coverage Notice Comment: NEGRITA for [facility] and [employer] Last DP export: 08/22/19 4:30 Patient Name: JUAN JOSE GARCIA Page 70201 at 1740 All edits/amendments must be made on the electronic document DICTATION DATE: 08/22/191738 EMERGENCY OPERATOR: LYUDMILA 08/22/191738 RPT#: [id number] DC DATE: STATUS: ADM IN [facility] [address] [place] [address] END OF REPORT
--- NOTE | 2019-08-22 20:48 | NUR ---
REC'D. DURING WALKING ROUNDS IN BED WATCHING TV DRESSING DRY AND INTACT LEFT HIP WITH WOUND VAC IN PLACE.FOOT PINK, WARM PEDAL PULSE PRESENT WIGGLES TOES DORSIFLEXES DENIES DECREASE IN SENSATION.HEEL BRIDGED. WILL CONTINUE TO MONITOR FOR ANY CHGES IN NEUROVASCULAR STATUS AND FOLLOW CURRENT PLAN OF CARE
[2019-08-22 20:50] VITALS: BP 107/60
[2019-08-23 01:04] VITALS: BP 110/68
--- NOTE | 2019-08-23 03:58 | NUR ---
I have reviewed this patient and I concur with the Shift Assessment completed by the Licensed Practical Nurse today this shift.
[2019-08-23 04:42] VITALS: BP 109/57
[2019-08-23 05:36] LABS: BASOPHILS 0.7 % (0-2); EOSINOPHILS 4.4 % (0-7); HEMOGLOBIN 11.8 g/dL (13.5-17.5); IMMATURE GRANULOCYTES 0.3 % (0-5); LYMPHOCYTES 18.9 % (15-50); MCH 29.1 pg (26.0-34.0); MCHC 31.9 g/dL (31.0-37.0); MCV 91.1 fL (80.0-100.0); MEAN PLATELET VOLUME 9.3 fL (7.4-10.4); MONOCYTES 12.4 % (2-11); NEUTROPHILS 63.3 % (40-80); PLATELET COUNT 470 10x3/uL (130-400); RBC 4.06 10x6/uL (4.20-6.10); RDW 14.5 % (11.5-14.5); WBC 8.7 10x3/uL (4.8-10.8)
[2019-08-23 06:12] LABS: ALBUMIN 2.2 g/dL (3.4-5.0); ALKALINE PHOSPHATASE 79 U/L (46-116); ALT (SGPT) 26 U/L (10-68); BILIRUBIN - TOTAL 0.46 mg/dL (0.2-1.3); CALC OSMOLALITY 274 mosm/kg (275-300); CALCIUM 8.3 mg/dL (8.5-10.1); CARBON DIOXIDE 30.4 mmol/L (21.0-32.0); CHLORIDE - SERUM 104 mmol/L (98-107); CREATININE - SERUM 0.8 mg/dL (0.6-1.3); GLUCOSE 109 mg/dL (74-106); POTASSIUM - SERUM 4.3 mmol/L (3.5-5.1); PROTEIN - SERUM 5.4 g/dL (6.4-8.2); SODIUM 137 mmol/L (136-145); UREA NITROGEN 12 mg/dL (7-18); eGFR NON AFRICAN AMERICAN > 90 mL/min (90-120)
--- NOTE | 2019-08-23 07:00 | NUR ---
PATIENT RECIEVED FROM PREVIOUS SHIFT RESTING IN BED WITH EYES OPEN. ALERT AND ORIENTED. WOUND VAC INPLACE TO LEFT HIP POST I&D 4 DAYS AGO. POST LEFT HIP REPLACEMENT 2 WEEKS AGO. NO NEEDS VOICED AT THIS TIME. CL IN REACH
[2019-08-23 08:27] VITALS: BP 105/63
--- NOTE | 2019-08-23 12:03 | MORECARE ---
CASE MANAGEMENT DISCHARGE SUMMARY PATIENT: JUAN JOSE GARCIA UNIT: [id number] ADM DATE: 08/19/19 AGE: 69 : 48 SEX: M ROOM/BED: D.2239 AUTHOR: JUVENAL,AMBAR PHYSICIAN: REFERRING PHYSICIAN: ANALILIA GONZALES DO DATE OF SERVICE: 08/23/19 Discharge Plan Patient Name: JUAN JOSE GARCIA Facility: [facility]:[place] : 1950 Planned Disposition: Home Anticipated Discharge Date: Discharge Date: Expected LOS: Initial Reviewer: [id number] Initial Review Date: 08/22/2019 Generated: 08/23/19 1:03 pm Comments DCP- Discharge Planning Updated by [email or web address]: Phyllis Rai on 08/23/19 10:[address] PT continues to recommend SNF. I spoke again with the patient and he is agreeable to a SNF. He has been at [facility] before and would like a referral to [facility]. I called estelle Barnett for [facility], and clinical faxed. CM will continue to follow and assist with discharge planning/needs. Ericka Quiles RN, estelle for [facility] - [phone] DCP- Discharge Planning Updated by [email or web address]: Phyllis Rai on 08/22/19 4:[address] Patient Name: JUAN JOSE GARCIA Admission Status: Elective Accout number: [id number] Admission Date: 08-19-2019 : 1950 Admission Diagnosis: Attending: ANALILIA GONZALES Current LOS: 3 Anticipated DC Date: Planned Disposition: Home Primary Insurance: MEDICARE A & B Discharge Planning Comments: CM met with patient to complete initial dc planning assessment. CM educated patient on the CM role and verbal consent given by patient to complete assessment. Patient lives at home alone. At discharge patient plans to return and feels this is a safe discharge. He states his ex wives (Yecenia and Jacey will be staying with him 25/05). CM discussed availability of home health, rehab services, and medical equipment. I informed patient that PT recommends rehab or a skilled unit. He states "I'm going home". He does agree to home health for PT. He may be too high risk to fall for outpatient PT at this time. NEGRITA signed for [facility]. CM will continue to follow and will assist as needed with dc plans/needs. Director Of Learning: Phyllis Fredi DCPIA - Discharge Planning Initial Assessment Updated by [email or web address]: Phyllis Rai on 08/22/19 5:28 pm * Is the patient Alert and Oriented? Yes * How many steps to enter\\exit or inside your home? 2/0 * PCP Dr. Rouse * Pharm[facility] * Preadmission Environment Acute Inpatient Rehab * Facility Name [facility] * ADLs Partial Dependent * Partial ADLs (Assistance needed) Ambulation * Equipment Bedside Commode Rolling Walker * List name and contact numbers for known caregivers / representatives who currently or will assist patient after discharge: Cat Calvillo [phone] * Verbal permission to speak to the caregivers and representatives has been obtained from the patient. Yes * Community resources currently utilized None * Additional services required to return to the preadmission environment? Yes * Can the patient safely return to the preadmission environment? Yes * Has this patient been hospitalized within the prior 30 days at any hospital? Yes External Providers External Provider: [facility] and [facility] Next Contact Date: Service Request Date: Service Type: Resolution: Reviewer: Comments: Coverage Notice Reviewer: [id number] Lukas Rai Notice Issued Date-Time: 08/22/2019 17:35 Notice Type: Patient Choice Letter Notice Delivered To: Patient Relationship to Patient: Self Carpet Jack Name: Delivery Method: HAND - Hand Delivered Hyacinth Days: Prior Verbal Notification: Recipient Understood Notice: Yes Recipient Signature: Yes Med Rec Note Co-signed by Attending: Coverage Notice Comment: NEGRITA for [facility] and Kateryna Reviewer: [email or web address] Lukas Rai Notice Issued Date-Time: 08/23/2019 11:51 Notice Type: Patient Choice Letter Notice Delivered To: Patient Relationship to Patient: Self Carpet Jack Name: Delivery Method: HAND - Hand Delivered Hyacinth Days: Prior Verbal Notification: Recipient Understood Notice: Yes Recipient Signature: Yes Med Rec Note Co-signed by Attending: Coverage Notice Comment: NEGRITA FOR [facility] Reviewer: [email or web address] Lukas Rai Notice Issued Date-Time: 08/23/2019 11:51 Notice Type: IM Discharge Notice Notice Delivered To: Patient Relationship to Patient: Self Carpet Jack Name: Delivery Method: HAND - Hand Delivered Hyacinth Days: Prior Verbal Notification: Recipient Understood Notice: Yes Recipient Signature: Yes Med Rec Note Co-signed by Attending: Coverage Notice Comment: IMM EXPLAINED, SIGNED, GIVEN, COPY PLACED IN MR Last DP export: 08/22/19 4:40 Patient Name: JUAN JOSE GARCIA Page 13864 at 1203 All edits/amendments must be made on the electronic document DICTATION DATE: 08/23/191202 ENTRY OPERATOR: LYUDMILA 08/23/191202 RPT#: [id number] DC DATE: STATUS: ADM IN [facility] [address] [place] [address] END OF REPORT
--- NOTE | 2019-08-23 12:11 | NUR ---
Nutrition follow-up: Diet: consistent CHO; wheat bread only PO intake 100% of last 6 meals Labs reviewed Wt: 240# No BM charted since admit. Will speak with nurse. PO intake good at this time. RDN following.
[2019-08-23 12:34] VITALS: BP 107/67
[2019-08-23 17:19] VITALS: BP 114/69
[2019-08-23 20:34] VITALS: BP 136/66
[2019-08-24 01:19] VITALS: BP 120/74
[2019-08-24 05:03] VITALS: BP 120/68
[2019-08-24 05:12] LABS: BASOPHILS 0.5 % (0-2); EOSINOPHILS 3.9 % (0-7); HEMATOCRIT 37.4 % (42.0-54.0); HEMOGLOBIN 11.7 g/dL (13.5-17.5); IMMATURE GRANULOCYTES 0.4 % (0-5); LYMPHOCYTES 20.7 % (15-50); MCH 28.8 pg (26.0-34.0); MCHC 31.3 g/dL (31.0-37.0); MCV 92.1 fL (80.0-100.0); MONOCYTES 11.4 % (2-11); NEUTROPHILS 63.1 % (40-80); PLATELET COUNT 481 10x3/uL (130-400); RBC 4.06 10x6/uL (4.20-6.10); RDW 14.4 % (11.5-14.5); WBC 7.9 10x3/uL (4.8-10.8)
[2019-08-24 05:39] LABS: ALBUMIN 2.3 g/dL (3.4-5.0); ALKALINE PHOSPHATASE 85 U/L (46-116); ALT (SGPT) 25 U/L (10-68); BILIRUBIN - TOTAL 0.62 mg/dL (0.2-1.3); CALC OSMOLALITY 278 mosm/kg (275-300); CALCIUM 8.4 mg/dL (8.5-10.1); CARBON DIOXIDE 32.2 mmol/L (21.0-32.0); CHLORIDE - SERUM 103 mmol/L (98-107); GLUCOSE 120 mg/dL (74-106); POTASSIUM - SERUM 4.4 mmol/L (3.5-5.1); PROTEIN - SERUM 5.8 g/dL (6.4-8.2); SODIUM 139 mmol/L (136-145); UREA NITROGEN 13 mg/dL (7-18); eGFR NON AFRICAN AMERICAN 78 mL/min (90-120)
--- NOTE | 2019-08-24 06:17 | NUR ---
REC'D DURING CHGE OF SHIFT WALKING ROUNDS IN BED SUPINE POSITION EYES CLOSED RESP. DEEP AND EVEN.WILL CONTINUE TO MONITOR FOR ANY CHGES. IN NEUROVASCULAR STATUS AND FOLLOW CURRENT PLAN OF CARE.
--- NOTE | 2019-08-24 06:39 | NUR ---
I have reviewed this patient and I concur with the Shift Assessment completed by the Licensed Practical Nurse today this shift.
--- NOTE | 2019-08-24 07:00 | NUR ---
PATIENT RECIEVED FROM PREVIOUS SHIFT RESTING IN BED, DENIES NEEDS AT THIS TIME. WOUND VAC PATENT TO RIGHT HIP. RESPIRATIONS REGULAR AND NON-LABORED. CL IN REACH
[2019-08-24 09:21] VITALS: BP 113/73
[2019-08-24 12:40] VITALS: BP 115/70
--- NOTE | 2019-08-24 13:26 | NUR ---
UNABLE TO FLUSH IV TO LEFT AC, RESITED TO LEFT FOREARM X1 STICK WITH 22G, PATIENT TOLERATED WELL.
[2019-08-24 16:56] VITALS: BP 128/71
[2019-08-24 20:39] VITALS: BP 100/70
--- NOTE | 2019-08-24 23:39 | NUR ---
PATIENT IS ALERT AND ORENTED ABLE TO VOICE NEEDS AND WANTS TO STAFF. IV TO RIGHT FA WITH 1/2NS AT 50 NO REDNESS NOTED AT SITE DENIES PAIN AT SITE. PICC TO UPER RIGHT ARM, WOUND VACK TO LEFT HIP INTACT. WATER AND CALL LIGHT IN REACH BED LOW ALARM IN PLACE AND WORKING.
[2019-08-25 01:22] VITALS: BP 119/57
[2019-08-25 05:03] VITALS: BP 118/70
[2019-08-25 06:12] LABS: EOSINOPHILS 3.2 % (0-7); HEMATOCRIT 39.1 % (42.0-54.0); HEMOGLOBIN 12.2 g/dL (13.5-17.5); IMMATURE GRANULOCYTES 0.3 % (0-5); LYMPHOCYTES 18.1 % (15-50); MCH 28.8 pg (26.0-34.0); MCHC 31.2 g/dL (31.0-37.0); MCV 92.4 fL (80.0-100.0); MEAN PLATELET VOLUME 9.3 fL (7.4-10.4); MONOCYTES 13.5 % (2-11); NEUTROPHILS 63.9 % (40-80); PLATELET COUNT 522 10x3/uL (130-400); RBC 4.23 10x6/uL (4.20-6.10); RDW 14.4 % (11.5-14.5)
[2019-08-25 06:41] LABS: ALBUMIN 2.4 g/dL (3.4-5.0); ALKALINE PHOSPHATASE 96 U/L (46-116); ALT (SGPT) 24 U/L (10-68); CALC OSMOLALITY 279 mosm/kg (275-300); CALCIUM 8.7 mg/dL (8.5-10.1); CARBON DIOXIDE 31.5 mmol/L (21.0-32.0); CHLORIDE - SERUM 104 mmol/L (98-107); GLUCOSE 125 mg/dL (74-106); POTASSIUM - SERUM 4.4 mmol/L (3.5-5.1); PROTEIN - SERUM 6.5 g/dL (6.4-8.2); SODIUM 139 mmol/L (136-145); UREA NITROGEN 15 mg/dL (7-18); eGFR NON AFRICAN AMERICAN 78 mL/min (90-120)
--- NOTE | 2019-08-25 07:18 | NUR ---
PT IS RESTING IN BED WITH EYES CLOSED. RESPIRATIONS ARE EVEN AND UNLABORED. WOUND VAC TO LEFT HIP NOTED AND WORKING WITHOUT DIFFICULTY. DRESSING TO LEFT HIP IS CDI. PT REPORTS FEELING TO LLE. DENIES PRESENCE OF NUMBNESS/TINGLING TO LLE. PT DENIES PRESENCE OF N/V/PAIN AT THIS TIME. PT IS AAO X 4. PT DENIES FURTHER NEEDS. BED IS IN THE LOWEST POSITION. CALL LIGHT AND BEDSIDE TABLE ARE WITHIN REACH. SIDE RAILS X 2. PT DENIES FURTHER NEEDS. WILL CONT TO MONITOR.
[2019-08-25 09:21] VITALS: BP 120/69
--- NOTE | 2019-08-25 11:15 | NUR ---
Late entry: 08/24/19 0900 Prevena plus dressing applied over surgical site on left hip. Incision intact with no redness or odor. Small amount of serosanguinous drainage noted. Pt tolerated well.
[2019-08-25 13:10] VITALS: BP 90/38
--- NOTE | 2019-08-25 13:50 | NUR ---
PT RESTING IN BED WITH EYES CLOSED. RESPIRATIONS ARE EVEN AND UNLABORED. PT DENIES FURTHER NEEDS. PT REPORTS PAIN 4/10 DENIES NEEDS. BED IS IN THE LOWEST POSITION. CALL LIGHT AND BEDSIDE TABLE ARE WITIHN REACH. SIDE RAILS X 2. WILL CONT TO MONITOR.
[2019-08-25 16:21] VITALS: BP 133/63
[2019-08-25 20:00] VITALS: BP 108/73
[2019-08-26] VITALS: BP 150/79
--- NOTE | 2019-08-26 03:08 | NUR ---
patient is alert and orented able to voice needs and wants to staff. IV to left FA with 1/2ns at 50ml/hr , no redness at site no c/o pain at site. , picc line to right upper arm. SCD's , on room air, left hip wound with dressing CDI wound vac in place. Resting in bed with no needs noted or stated,
[2019-08-26 04:00] VITALS: BP 167/77
[2019-08-26 05:44] LABS: BASOPHILS 0.5 % (0-2); EOSINOPHILS 2.9 % (0-7); HEMATOCRIT 39.8 % (42.0-54.0); HEMOGLOBIN 12.6 g/dL (13.5-17.5); IMMATURE GRANULOCYTES 0.1 % (0-5); LYMPHOCYTES 11.7 % (15-50); MCH 29.1 pg (26.0-34.0); MCHC 31.7 g/dL (31.0-37.0); MCV 91.9 fL (80.0-100.0); MEAN PLATELET VOLUME 9.2 fL (7.4-10.4); MONOCYTES 11.6 % (2-11); NEUTROPHILS 73.2 % (40-80); PLATELET COUNT 528 10x3/uL (130-400); RBC 4.33 10x6/uL (4.20-6.10); RDW 14.3 % (11.5-14.5); WBC 7.7 10x3/uL (4.8-10.8)
[2019-08-26 06:20] LABS: ALBUMIN 2.4 g/dL (3.4-5.0); ALKALINE PHOSPHATASE 105 U/L (46-116); ALT (SGPT) 19 U/L (10-68); BILIRUBIN - TOTAL 0.51 mg/dL (0.2-1.3); CALC OSMOLALITY 279 mosm/kg (275-300); CALCIUM 8.6 mg/dL (8.5-10.1); CARBON DIOXIDE 28.8 mmol/L (21.0-32.0); CHLORIDE - SERUM 104 mmol/L (98-107); CREATININE - SERUM 0.9 mg/dL (0.6-1.3); GLUCOSE 120 mg/dL (74-106); POTASSIUM - SERUM 4.3 mmol/L (3.5-5.1); PROTEIN - SERUM 6.5 g/dL (6.4-8.2); SODIUM 139 mmol/L (136-145); UREA NITROGEN 14 mg/dL (7-18); eGFR NON AFRICAN AMERICAN 89 mL/min (90-120)
--- NOTE | 2019-08-26 09:00 | NUR ---
ALERT AND OREINTED X4 WITH WOUND VAC INTACT TO LT. THIGH WITH NO PERIPHERAL EDEMA NOTED WITH CAP REFILL <3 SEC. PICC LINE INTACT TO RUE. SCD'S INTACT. ENCOURAGED TO USE CALL IGHT FOR ASSIT.DENIES ANY PAIN OR DISCOMFORT AT THIS TIME.
[2019-08-26 09:50] VITALS: BP 137/84
[2019-08-26 17:07] VITALS: BP 123/70
[2019-08-26 20:00] VITALS: BP 126/67
--- NOTE | 2019-08-26 20:00 | NUR ---
A/O WITH NO SIGNS OF DISTRESS. IV TO THE RT FOREARM WITH NO REDNESS OR SWELLING NOTED. PICC LINE TO THE RT UPPER ARM, CDI. WOUND VAC TO THE LT HIP. ENCOURAGED COLD FLUIDS, IS AND TUNRED AIR DOWN FOR A TEMP OF 100.1. WILL CONTINUE TO MONITOR AND PLAN OF CARE.
[2019-08-27] VITALS (7 sets, daily range): BP systolic 112–154; BP diastolic 46–86
[2019-08-27 05:23] LABS: BASOPHILS 0.4 % (0-2); EOSINOPHILS 1.3 % (0-7); HEMATOCRIT 40.8 % (42.0-54.0); HEMOGLOBIN 13.1 g/dL (13.5-17.5); IMMATURE GRANULOCYTES 0.2 % (0-5); LYMPHOCYTES 10.8 % (15-50); MCH 29.1 pg (26.0-34.0); MCHC 32.1 g/dL (31.0-37.0); MCV 90.7 fL (80.0-100.0); MEAN PLATELET VOLUME 8.9 fL (7.4-10.4); NEUTROPHILS 77.3 % (40-80); PLATELET COUNT 494 10x3/uL (130-400); RDW 14.2 % (11.5-14.5); WBC 8.5 10x3/uL (4.8-10.8)
[2019-08-27 05:55] LABS: CALC OSMOLALITY 271 mosm/kg (275-300); CALCIUM 8.3 mg/dL (8.5-10.1); CARBON DIOXIDE 24.7 mmol/L (21.0-32.0); CHLORIDE - SERUM 101 mmol/L (98-107); CREATININE - SERUM 0.8 mg/dL (0.6-1.3); GLUCOSE 109 mg/dL (74-106); POTASSIUM - SERUM 3.8 mmol/L (3.5-5.1); SODIUM 135 mmol/L (136-145); UREA NITROGEN 14 mg/dL (7-18); eGFR NON AFRICAN AMERICAN > 90 mL/min (90-120)
--- NOTE | 2019-08-27 09:44 | NUR ---
ALERT AND ORIENTED X4. WOUND VAC INTACT TO LT HIP. WITH PEDAL PULSES NOTED. DENIES ANY PAIN OR DISCOMFORT AT THIS TIME. PICC LINE INTACT TO RUE AND IV TO LT. HAND INFUSING AT PREWCRIBED RATE. ENCOURAGED TO USE CALL LIGHT FOR ASSSIT.SCD'S USED WIHILE IN BED.
[2019-08-27 13:09] LABS: FUNGUS STAIN Final report (())
[2019-08-27 14:41] LABS: APPEARANCE CLEAR (CLEAR); BILIRUBIN NEGATIVE (NEGATIVE); COLOR YELLOW (YELLOW); GLUCOSE 250 mg/dL (NEGATIVE); KETONE NEGATIVE (NEGATIVE); NITRITE NEGATIVE (NEGATIVE); PROTEIN NEGATIVE (NEGATIVE); UROBILINOGEN NORMAL (NORMAL)
--- NOTE | 2019-08-27 19:00 | NUR ---
BEDSIDE REPORT RECEIVED AND CARE OF PT ASSUMED. PT LYING IN MID MCCLELLAND'S POSITION WITH EYES CLOSED. IV TO LEFT FA PATENT WITH 1/2 NS INFUSING AT 50 ML/HR. WOUND VAC ON LEFT HIP WELL COMPRESSED WITH NO LEAKAGE ALARMS. WILL MONITOR FOR NEEDS.
--- NOTE | 2019-08-27 20:49 | NUR ---
HS MEDICATIONS GIVEN. PT DECLINES HS SNACK AT THIS TIME.
--- NOTE | 2019-08-27 22:16 | NUR ---
PT CONSENTED FOR AM SURGERY. DISCUSSED NPO STATUS BEGINNING AT MIDNIGHT. GAVE CUP OF BEEF BROOTH PER REQUEST.
[2019-08-28] VITALS: BP 118/81
[2019-08-28 04:00] VITALS: BP 148/77
[2019-08-28 04:39] LABS: BASOPHILS 0.9 % (0-2); EOSINOPHILS 2.3 % (0-7); HEMATOCRIT 40.4 % (42.0-54.0); HEMOGLOBIN 12.8 g/dL (13.5-17.5); IMMATURE GRANULOCYTES 0.3 % (0-5); LYMPHOCYTES 19.4 % (15-50); MCH 29.1 pg (26.0-34.0); MCHC 31.7 g/dL (31.0-37.0); MCV 91.8 fL (80.0-100.0); MEAN PLATELET VOLUME 8.8 fL (7.4-10.4); MONOCYTES 19.1 % (2-11); PLATELET COUNT 445 10x3/uL (130-400); RDW 14.4 % (11.5-14.5)
[2019-08-28 04:58] LABS: CALC OSMOLALITY 273 mosm/kg (275-300); CALCIUM 8.5 mg/dL (8.5-10.1); CARBON DIOXIDE 27.9 mmol/L (21.0-32.0); CHLORIDE - SERUM 103 mmol/L (98-107); CREATININE - SERUM 0.9 mg/dL (0.6-1.3); GLUCOSE 112 mg/dL (74-106); SODIUM 136 mmol/L (136-145); UREA NITROGEN 15 mg/dL (7-18); eGFR NON AFRICAN AMERICAN 89 mL/min (90-120)
--- NOTE | 2019-08-28 05:14 | NUR ---
HIBACLENS BATH COMPLETE AND ALL LINENS AND GOWN CHANGED. AM MEDS GIVEN WITH A SIP OF WATER.
[2019-08-28 08:25] VITALS: BP 139/60
[2019-08-28 13:40] VITALS: BP 142/76
[2019-08-28 16:56] VITALS: BP 141/76
--- NOTE | 2019-08-28 19:00 | NUR ---
BEDSIDE REPORT RECEIVED AND CARE OF PT ASSUMED. TP LYING IN HIGH MCCLELLAND'S POSITION VISITING WITH FAMILY MEMBER. RIGHT PICC LINE PATENT WITH 1/2 NS INFUSING AT 50 ML/HR. LEFT HIP WITH WOUND VAC AND RONA DRAIN IN PLACE. SCD'S IN PLACE. WILL MONITOR FOR NEEDS.
[2019-08-28 20:00] VITALS: BP 118/77
--- NOTE | 2019-08-28 20:58 | NUR ---
HS MEDICATIONS GIVEN TO INCLUDE DILAUDID FOR PAIN AND VALIUM FOR MUSCULAR PAIN IN RIGHT ARM. WILL MONITOR FOR EFFECTIVENESS.
[2019-08-29 04:00] VITALS: BP 134/77
[2019-08-29 06:40] LABS: CALC OSMOLALITY 275 mosm/kg (275-300); CALCIUM 7.8 mg/dL (8.5-10.1); CARBON DIOXIDE 24.4 mmol/L (21.0-32.0); CHLORIDE - SERUM 102 mmol/L (98-107); CREATININE - SERUM 0.9 mg/dL (0.6-1.3); GLUCOSE 135 mg/dL (74-106); POTASSIUM - SERUM 4.2 mmol/L (3.5-5.1); SODIUM 136 mmol/L (136-145); UREA NITROGEN 17 mg/dL (7-18); eGFR NON AFRICAN AMERICAN 89 mL/min (90-120)
--- NOTE | 2019-08-29 07:20 | NUR ---
PT RESTING IN BED WITH EYES OPEN, ALERT AND ORIENTED. IV LOCATED TO RIGHT UPPER RUNNING 1/2NS @ 50ML/HR. WOUND VAC AND RONA LOCATED TO LEFT HIP. DENIES NEEDS AT THIS TIME, WILL CONT TO MONITOR.
[2019-08-29 07:32] LABS: BASOPHILS 0.7 % (0-2); EOSINOPHILS 0.4 % (0-7); HEMATOCRIT 33.6 % (42.0-54.0); HEMOGLOBIN 10.6 g/dL (13.5-17.5); IMMATURE GRANULOCYTES 0.4 % (0-5); LYMPHOCYTES 16.8 % (15-50); MCH 28.6 pg (26.0-34.0); MCHC 31.5 g/dL (31.0-37.0); MCV 90.6 fL (80.0-100.0); MEAN PLATELET VOLUME 9.4 fL (7.4-10.4); MONOCYTES 14.9 % (2-11); NEUTROPHILS 66.8 % (40-80); PLATELET COUNT 437 10x3/uL (130-400); RBC 3.71 10x6/uL (4.20-6.10); RDW 14.2 % (11.5-14.5); WBC 10.3 10x3/uL (4.8-10.8)
[2019-08-29 08:48] VITALS: BP 154/74
--- NOTE | 2019-08-29 11:59 | OP ---
PATIENT NAME: JUAN JOSE TRACEY MEDICAL RECORD: [id number] :[birth year] LOCATION:D.[id number] ADMISSION DATE:08/19/19 SURGEON: ANALILIA GONZALES DO DATE OF OPERATION: 08/28/2019 PROCEDURE PERFORMED: Revision left total hip arthroplasty. PREOPERATIVE DIAGNOSIS: Left hip periprosthetic joint infection. POSTOPERATIVE DIAGNOSIS: Left hip periprosthetic joint infection. INDICATIONS: Mr. Tracey is a 69-year-old male who underwent primary total hip on the of this month. Ten days later, he had drainage out of his wound. I did an I&D, took cultures and nothing cultured until it was in broth and it came back as Staph epi. I told him that we may need to revisit this if he continued to drain and he did. He returned last night and he had drainage in his VAC from the Prevena from the other surgery that was performed approximately 10 days ago. I informed him that he was probably infected and he needed to have all this part pulled out and revised, possible cement spacer due to the stage, but due to the fact of the acuity of this, so we will attempt a single stage. He is aware in fact that he may need to come back and do it. He is aware of the risk of continued infection, bleeding, need for further surgery, blood clots, even , damage to nerves and vessels as well as limb loss and losing the ability to walk, and he signed the consent. SURGEON: Analilia Gonzales DO DESCRIPTION OF PROCEDURE: The patient was taken to the operative suite, laid in the supine position, given general anesthetic and intubated. He was given 2 grams of Ancef preoperatively, even though he is on vancomycin on the floor. He was then positioned over on the Latimer table. The left hip was prepped with Betadine and draped and then the incision was made over the prior incision. Fluid gushed out of the incision as soon as the incision was made. Careful dissection was made down to the hip itself. The hip was dislocated and went to pop the head off and the whole stem came out, it was loose likely due to the infection. The stem came out and then the cup was removed after the liner was removed using osteotomes. The cup was removed with the impactor that was put in with. I then irrigated with 3 liters of normal saline. Cultures were taken prior to this 3 liters of normal saline and a thorough debridement was done of any soft tissue that was somewhat necrotic or that was not bleeding. A very thorough debridement was done at that time. We then took a reamer and reamed from a 58 up to a 62 in the cup and then broached on the femur to a 15 starting at a 12. The 15 fit well. This was removed. In order to remove any material that was in the canal, this was done. I irrigated with a liter of Bactisure, another 3 liters of normal saline and then put in 500 mL of the solution with mix of Betadine and normal saline and then let that sit. I closed the fascia with 0 Monocryl in a ehlamw-uk-zucti fashion and then on the skin I ran a 2-0 Monocryl on the skin. We then took the drapes off, reprepped and redraped and the incision was then made over the prior one. This was with Betadine the prep was. The sutures were removed as I dissected down. Another debridement was done as well as irrigation with 3 liters of normal saline. Another debridement was done of any devitalized tissue at that time and after that was completed, I impacted the 62 cup and an osteotide. It fit very well and was very stable as the liner was then placed. We then broached again on the femur with the 15 to ensure that it was a good fit and it was and to remove any debris that may have OPERATIVE REPORT [id number] JUAN JOSE TRACEY gone down the canal. The canal was then thoroughly irrigated with approximately 500 mL of normal saline and once that was completed, the 15 stem was placed and impacted into place and had a very good solid fixation. The head was then put on and impacted into place, dual mobility, and the hip was reduced. Once the hip was reduced, I irrigated again with Bactisure and a liter and half of normal saline and then put in the solution of Betadine and normal saline. A 10% povidone iodine with the Betadine that was used poured into the wound and let it sit for 3 minutes. This was then after 3 minutes suctioned out, another liter and half of normal saline was put in, another debridement was done and more irrigation was done. The hip was confirmed to be in good position on AP pelvis and left hip x-ray. No fractures were seen in the femur and fit in the canal very well. Prior to the closure, a drain was placed and taken out the superolateral hip. Lino was then placed in the wound and then the fascia was closed with 0 Monocryl in a sswzes-ih-dsxvi fashion and the skin with 2-0 Monocryl in inverted interrupted fashion and then 3-0 Prolene was used to run a running stitch on the skin. A Prevena plus was then placed on the skin and the drain was secured with 2 Tegaderms. He was then awakened and taken to recovery in stable condition. BLOOD LOSS: Approximately 300 mL. COMPLICATIONS: None. TRANSINT:[id number] Voice Confirmation ID: [id number] DOCUMENT ID: [id number] ANALILIA GONZALES DO at 1159 CC: [id number] DICTATION DATE: 08/28/19 1237 NEWS VIDEO EDITOR: 08/28/19 1318 ADM IN [facility] [address] [place] [address]
[2019-08-29 13:30] VITALS: BP 124/74
--- NOTE | 2019-08-29 14:06 | NUR ---
Nutrition follow-up: Pt is s/p surgery for hip revision Herrera been NPO for several meals. PO Intake prior to surgery was 100% of consistnet CHO meals was 100% of most. Labs reviewed Wt: 239# RDN following.
--- NOTE | 2019-08-29 16:26 | MORECARE ---
CASE MANAGEMENT DISCHARGE SUMMARY PATIENT: JUAN JOSE GARCIA UNIT: [id number] ADM DATE: 08/19/19 AGE: 69 : 49 SEX: M ROOM/BED: D.2239 AUTHOR: AMBAR SANFORD PHYSICIAN: REFERRING PHYSICIAN: ANALILIA GONZALES DO DATE OF SERVICE: 08/29/19 Discharge Plan Patient Name: JUAN JOSE GARCIA Facility: [facility]:[place] : 1950 Planned Disposition: Home Anticipated Discharge Date: Discharge Date: Expected LOS: Initial Reviewer: [email or web address] Initial Review Date: 08/22/2019 Generated: 08/29/19 5:26 pm Comments DCP- Discharge Planning Updated by [email or web address]: Phyllis Rai on 08/29/19 3:[address] Updated clinical faxed to [facility]. CM will continue to follow and assist with discharge planning/needs. DCP- Discharge Planning Updated by [email or web address]: Phyllis Rai on 08/23/19 10:[address] PT continues to recommend SNF. I spoke again with the patient and he is agreeable to a SNF. He has been at [facility] before and would like a referral to [facility]. I called estelle Barnett for the [facility], and clinical faxed. CM will continue to follow and assist with discharge planning/needs. Ericka Quiles RN, liason for [facility] - [phone] DCP- Discharge Planning Updated by [email or web address]: Phyllis Rai on 08/22/19 4:[address] Patient Name: JUAN JOSE GARCIA Admission Status: Elective Accout number: [id number] Admission Date: 08-19-2019 : 1950 Admission Diagnosis: Attending: ANALILIA GONZALES Current LOS: 3 Anticipated DC Date: Planned Disposition: Home Primary Insurance: MEDICARE A & B Discharge Planning Comments: CM met with patient to complete initial dc planning assessment. CM educated patient on the CM role and verbal consent given by patient to complete assessment. Patient lives at home alone. At discharge patient plans to return and feels this is a safe discharge. He states his ex wives (Yecenia and Jacey will be staying with him 25/05). CM discussed availability of home health, rehab services, and medical equipment. I informed patient that PT recommends rehab or a skilled unit. He states "I'm going home". He does agree to home health for PT. He may be too high risk to fall for outpatient PT at this time. NEGRITA signed for [facility]. CM will continue to follow and will assist as needed with dc plans/needs. Construction Driver: Phyllis Rai DCPIA - Discharge Planning Initial Assessment Updated by [email or web address]: Phyllis Rai on 08/22/19 5:28 pm * Is the patient Alert and Oriented? Yes * How many steps to enter\\exit or inside your home? 2/0 * PCP Dr. Rouse * Pharmacy [facility] * Preadmission Environment Acute Inpatient Rehab * Facility Name [facility] * ADLs Partial Dependent * Partial ADLs (Assistance needed) Ambulation * Equipment Bedside Commode Rolling Walker * List name and contact numbers for known caregivers / representatives who currently or will assist patient after discharge: Cat Calvillo [phone] * Verbal permission to speak to the caregivers and representatives has been obtained from the patient. Yes * Community resources currently utilized None * Additional services required to return to the preadmission environment? Yes * Can the patient safely return to the preadmission environment? Yes * Has this patient been hospitalized within the prior 30 days at any hospital? Yes Coverage Notice Reviewer: [id number] Rai Notice Issued Date-Time: 08/22/2019 17:35 Notice Type: Patient Choice Letter Notice Delivered To: Patient Relationship to Patient: Self Lump Machine Operator Name: Delivery Method: HAND - Hand Delivered Hyacinth Days: Prior Verbal Notification: Recipient Understood Notice: Yes Recipient Signature: Yes Med Rec Note Co-signed by Attending: Coverage Notice Comment: NEGRITA for Lucero STEINBERG and Victoria'scarlett Reviewer: [id number] uLkas Rai Notice Issued Date-Time: 08/23/2019 11:51 Notice Type: Patient Choice Letter Notice Delivered To: Patient Relationship to Patient: Self Lump Machine Operator Name: Delivery Method: HAND - Hand Delivered Hyacinth Days: Prior Verbal Notification: Recipient Understood Notice: Yes Recipient Signature: Yes Med Rec Note Co-signed by Attending: Coverage Notice Comment: NEGRITA FOR THE [facility] Reviewer: [id number] Lukas Rai Notice Issued Date-Time: 08/23/2019 11:51 Notice Type: IM Discharge Notice Notice Delivered To: Patient Relationship to Patient: Self Lump Machine Operator Name: Delivery Method: HAND - Hand Delivered Hyacinth Days: Prior Verbal Notification: Recipient Understood Notice: Yes Recipient Signature: Yes Med Rec Note Co-signed by Attending: Coverage Notice Comment: IMM EXPLAINED, SIGNED, GIVEN, COPY PLACED IN MR Last DP export: 08/23/19 11:03 Patient Name: JUAN JOSE GARCIA Page [id number] at 1626 All edits/amendments must be made on the electronic document DICTATION DATE: 08/29/191625 SOIL CONSERVATION TECHNICIAN: LYUDMILA 08/29/196 RPT#: [id number] DC DATE: STATUS: ADM IN [facility] [address] [place] [address] END OF REPORT
[2019-08-29 20:00] VITALS: BP 130/65
--- NOTE | 2019-08-29 20:00 | NUR ---
ASSESSMENT PER FLOWSHEET. IV PATENT RT UPPER ARM PICC LINE WITH 1/2 NS AT 50CC'S/HR. BOTH ARMS SWOLLEN. DRSG TO LEFT HIP C/D/I. WOUND VAC IN PLACE AND RONA DRAIN IN PLACE AND COMPESSED. VOIDS IN URINAL.
--- NOTE | 2019-08-29 22:59 | NUR ---
MEDS PER DEC. REQUESTING PAIN MED DILAUDID 1MG IVP GIVEN FOR PAIN CONTROL.
--- NOTE | 2019-08-30 | NUR ---
EYES CLOSED RESPIRATIONS WITH EASE AND UNLABORED
--- NOTE | 2019-08-30 03:47 | NUR ---
VOIDS IN URINAL
[2019-08-30 04:00] VITALS: BP 134/72
[2019-08-30 06:54] LABS: BASOPHILS 0.7 % (0-2); EOSINOPHILS 0.8 % (0-7); HEMATOCRIT 30.3 % (42.0-54.0); HEMOGLOBIN 9.6 g/dL (13.5-17.5); IMMATURE GRANULOCYTES 0.1 % (0-5); LYMPHOCYTES 19.6 % (15-50); MCH 28.7 pg (26.0-34.0); MCHC 31.7 g/dL (31.0-37.0); MCV 90.4 fL (80.0-100.0); MEAN PLATELET VOLUME 8.9 fL (7.4-10.4); NEUTROPHILS 61.8 % (40-80); PLATELET COUNT 377 10x3/uL (130-400); RBC 3.35 10x6/uL (4.20-6.10); RDW 14.3 % (11.5-14.5)
[2019-08-30 07:00] LABS: CALCIUM 7.8 mg/dL (8.5-10.1); CARBON DIOXIDE 26.4 mmol/L (21.0-32.0); CHLORIDE - SERUM 104 mmol/L (98-107); GLUCOSE 109 mg/dL (74-106); SODIUM 137 mmol/L (136-145)
[2019-08-30 07:01] LABS: CALC OSMOLALITY 273 mosm/kg (275-300); CREATININE - SERUM 0.6 mg/dL (0.6-1.3); POTASSIUM - SERUM 3.5 mmol/L (3.5-5.1); UREA NITROGEN 11 mg/dL (7-18); eGFR NON AFRICAN AMERICAN > 90 mL/min (90-120)
[2019-08-30 07:20] LABS: WBC 7.4 10x3/uL (4.8-10.8)
--- NOTE | 2019-08-30 07:20 | NUR ---
PT RESTING IN BED WITH EYES CLOSED, EASILY AROUSED TO SPEECH, ALERT AND ORIENTED. WOUND VAC LOCATED TO LEFT HIP. PICC LINE LOCATED TO UPPER RIGHT ARM. RIGHT ARM IS SWOLLEN. NO S/S OF DISTRESS, WILL CONT TO MONITOR.
[2019-08-30 08:34] VITALS: BP 142/61
[2019-08-30 12:53] VITALS: BP 147/69
--- NOTE | 2019-08-30 14:19 | NUR ---
PT HAD SMALL BM.
[2019-08-30 17:02] VITALS: BP 114/66
--- NOTE | 2019-08-30 20:00 | NUR ---
ASSESSMENT PER FLOWSHEET. IV PATENT RT ARM PICC LINE WITH 1/2NS AT 50CC'S/HR. ARM REMAINS SWOLLEN PULSE IS PRESENT.ABHINAV MAT ON REFUSES SCD'S WOUND VAC TO LEFT HIP IN PLACE. DRSG TO OLD DRAIN SITE C/D/I.
[2019-08-30 20:46] VITALS: BP 109/64
--- NOTE | 2019-08-30 22:00 | NUR ---
MEDS GIVEN PER MAR.
--- NOTE | 2019-08-31 01:41 | NUR ---
AWAKE VOIDS IN URINAL
[2019-08-31 05:43] VITALS: BP 167/79
[2019-08-31 06:17] LABS: BASOPHILS 0.6 % (0-2); EOSINOPHILS 1.5 % (0-7); HEMATOCRIT 29.8 % (42.0-54.0); HEMOGLOBIN 9.2 g/dL (13.5-17.5); IMMATURE GRANULOCYTES 0.6 % (0-5); LYMPHOCYTES 18.9 % (15-50); MCHC 30.9 g/dL (31.0-37.0); MCV 90.6 fL (80.0-100.0); MEAN PLATELET VOLUME 8.9 fL (7.4-10.4); MONOCYTES 15.7 % (2-11); NEUTROPHILS 62.7 % (40-80); PLATELET COUNT 393 10x3/uL (130-400); RBC 3.29 10x6/uL (4.20-6.10); RDW 14.4 % (11.5-14.5); WBC 7.1 10x3/uL (4.8-10.8)
[2019-08-31 06:30] LABS: CALC OSMOLALITY 276 mosm/kg (275-300); CALCIUM 7.7 mg/dL (8.5-10.1); CHLORIDE - SERUM 103 mmol/L (98-107); CREATININE - SERUM 0.7 mg/dL (0.6-1.3); GLUCOSE 104 mg/dL (74-106); POTASSIUM - SERUM 3.5 mmol/L (3.5-5.1); SODIUM 139 mmol/L (136-145); UREA NITROGEN 10 mg/dL (7-18); eGFR NON AFRICAN AMERICAN > 90 mL/min (90-120)
--- NOTE | 2019-08-31 07:38 | NUR ---
PT RESTING IN BED WITH EYES CLOSED, EASILY AROUSED TO SPEECH. PICC LINE LOCATED TO RIGHT UPPER ARM, EDEMA PRESENT. BREATHING EVEN AND NONLABORED. ALERT AND ORIENTED WITH NO S/S OF DISTRESS AT THIS TIME, WILL CONT TO MONITOR.
[2019-08-31 08:46] VITALS: BP 129/66
[2019-08-31 11:02] LABS: ERYTHROCYTE SEDIMENTATION RATE 49 mm/hr (0-20)
--- NOTE | 2019-08-31 12:01 | NUR ---
PICC LINE DRESSING CHANGED.
[2019-08-31 12:10] VITALS: BP 130/70
[2019-08-31 16:35] VITALS: BP 123/72
[2019-08-31 20:00] VITALS: BP 150/48
--- NOTE | 2019-08-31 20:00 | NUR ---
ASSESSMENT PER FLOWSHEET. DRSG/WOUND VAC TO LEFT HIP AREA C/D/I/. REFUSES SCD'S. IV TO RT ARM PICC WITH 1/2NS AT 5CC'S/HR AITE CLEAR. ARM IS SWOLLEN. PULSES PRESENT. SR UP X2 CALL LIGHT WITHIN REACH.
--- NOTE | 2019-08-31 21:00 | NUR ---
MEDS GIVEN PER DEC.C/O PAIN TO INCISIONAL AREA. DILAUDID 1MG IVP GIVEN FOR PAIN CONTROL. RATES PAIN LEVEL #6-8.VOIDS WELL IN URINAL.
--- NOTE | 2019-09-01 | NUR ---
AWAKE WATCHING TV. STATES LEFT LEG HAS HURT MORE TODAY THAN AT ANY OTHER TIME.
--- NOTE | 2019-09-01 01:00 | NUR ---
C/O MUSCLE SPASMS AND GETTING VERY ANXIOUS/UPSET. STATES HE TAKES VALIUM AT HOME THAT DR. HAMILTON HAD PRESCRIBED. NOTIFIED RAISA RODRIGUEZ AND FOUND OUT HOME MED HAD BEEN ORDERED THEN WAS DC'D BY PHARMACY. ORDERS REC'D AND VALIUM 10MG PO TIDPRN WAS RE-ORDERED. NOTIFIED MANUFACTURING COORDINATOR TO PULL MED.
--- NOTE | 2019-09-01 01:15 | NUR ---
CONTRACT PROJECT MANAGER AIDN GARCIA HERE TO PULL MED VALIKUM 10MG 0O GIVEN FOR MUSCLE SPASMS AND ANXIETY.
--- NOTE | 2019-09-01 03:19 | NUR ---
REQUESTING PAIN MED DILAUDID 1MG IVP GIVEN FOR PAIN CONTROL.
[2019-09-01 04:00] VITALS: BP 161/81
[2019-09-01 06:45] LABS: BASOPHILS 0.8 % (0-2); EOSINOPHILS 1.4 % (0-7); HEMATOCRIT 29.8 % (42.0-54.0); HEMOGLOBIN 9.3 g/dL (13.5-17.5); IMMATURE GRANULOCYTES 0.5 % (0-5); LYMPHOCYTES 21.5 % (15-50); MCH 28.5 pg (26.0-34.0); MCHC 31.2 g/dL (31.0-37.0); MCV 91.4 fL (80.0-100.0); MEAN PLATELET VOLUME 9.3 fL (7.4-10.4); MONOCYTES 14.8 % (2-11); PLATELET COUNT 410 10x3/uL (130-400); RBC 3.26 10x6/uL (4.20-6.10); RDW 14.4 % (11.5-14.5)
[2019-09-01 07:24] LABS: ALBUMIN 2.1 g/dL (3.4-5.0); ALKALINE PHOSPHATASE 96 U/L (46-116); ALT (SGPT) 16 U/L (10-68); BILIRUBIN - TOTAL 0.28 mg/dL (0.2-1.3); CALC OSMOLALITY 275 mosm/kg (275-300); CALCIUM 8.1 mg/dL (8.5-10.1); CARBON DIOXIDE 26.7 mmol/L (21.0-32.0); CHLORIDE - SERUM 102 mmol/L (98-107); CREATININE - SERUM 0.6 mg/dL (0.6-1.3); GLUCOSE 110 mg/dL (74-106); SODIUM 138 mmol/L (136-145); UREA NITROGEN 10 mg/dL (7-18); eGFR NON AFRICAN AMERICAN > 90 mL/min (90-120)
[2019-09-01 07:35] LABS: PROTEIN - SERUM 5.4 g/dL (6.4-8.2)
--- NOTE | 2019-09-01 07:47 | NUR ---
PT LAYING DOWN. RR EVEN AND UNLABORED. WOUND VAC NOTED TO LEFT HIP. DENIES NEEDS OR PAIN AT THIS TIME. AXO. BED IN LOWEST POSITION. CALL LIGHT WITHIN REACH. WILL CONTINUE TO MONITOR.
[2019-09-01 08:24] VITALS: BP 115/74
[2019-09-01 11:51] VITALS: BP 116/68
--- NOTE | 2019-09-01 13:13 | MORECARE ---
CASE MANAGEMENT DISCHARGE SUMMARY PATIENT: JUAN JOSE GARCIA UNIT: [id number] ADM DATE: 08/19/19 AGE: 69 : [birth year] SEX: M ROOM/BED: D.2239 AUTHOR: AMBAR SANFORD PHYSICIAN: REFERRING PHYSICIAN: ANALILIA GONZALES DO DATE OF SERVICE: 09/01/19 Discharge Plan Patient Name: JUAN JOSE GARCIA Facility: [facility]:[place] : 1950 Planned Disposition: Home Anticipated Discharge Date: Discharge Date: Expected LOS: Initial Reviewer: [id number] Initial Review Date: 08/22/2019 Generated: 09/01/19 2:12 pm Comments DCP- Discharge Planning Updated by [email or web address]: Phyllis Rai on 09/01/19 12:[address] Updated clinical faxed to [facility]. I notified Ericka of possible discharge tomorrow. CM will continue to follow and assist with discharge planning/needs. DCP- Discharge Planning Updated by [id number]: Phyllis Rai on 08/29/19 3:[address] Updated clinical faxed to [facility]. CM will continue to follow and assist with discharge planning/needs. DCP- Discharge Planning Updated by [email or web address]: Phyllis Rai on 08/23/19 10:[address] PT continues to recommend SNF. I spoke again with the patient and he is agreeable to a SNF. He has been at [facility] before and would like a referral to [facility]. I called estelle Barnett for [facility], and clinical faxed. CM will continue to follow and assist with discharge planning/needs. Ericka Quiles RN, estelle for [facility] - [phone] DCP- Discharge Planning Updated by [email or web address]: Phyllis Rai on 08/22/19 4:[address] Patient Name: JUAN JOSE GARCIA Admission Status: Elective Accout number: [id number] Admission Date: 08-19-2019 : 1950 Admission Diagnosis: Attending: ANALILIA GONZALES Current LOS: 3 Anticipated DC Date: Planned Disposition: Home Primary Insurance: MEDICARE A & B Discharge Planning Comments: CM met with patient to complete initial dc planning assessment. CM educated patient on the CM role and verbal consent given by patient to complete assessment. Patient lives at home alone. At discharge patient plans to return and feels this is a safe discharge. He states his ex wives (Yecenia and Jacey will be staying with him 25/05). CM discussed availability of home health, rehab services, and medical equipment. I informed patient that PT recommends rehab or a skilled unit. He states "I'm going home". He does agree to home health for PT. He may be too high risk to fall for outpatient PT at this time. NEGRITA signed for [facility]. CM will continue to follow and will assist as needed with dc plans/needs. Naturopathic Oncology Provider: Phyllis Rai DCPIA - Discharge Planning Initial Assessment Updated by [email or web address]: Phyllis Rai on 08/22/19 5:28 pm * Is the patient Alert and Oriented? Yes * How many steps to enter\\exit or inside your home? 2/0 * PCP Dr. Rouse * Pharmacy [facility] * Preadmission Environment Acute Inpatient Rehab * Facility Name [facility] * ADLs Partial Dependent * Partial ADLs (Assistance needed) Ambulation * Equipment Bedside Commode Rolling Walker * List name and contact numbers for known caregivers / representatives who currently or will assist patient after discharge: Cat Calvillo [phone] * Verbal permission to speak to the caregivers and representatives has been obtained from the patient. Yes * Community resources currently utilized None * Additional services required to return to the preadmission environment? Yes * Can the patient safely return to the preadmission environment? Yes * Has this patient been hospitalized within the prior 30 days at any hospital? Yes Coverage Notice Reviewer: [id number] Lukas Rai Notice Issued Date-Time: 08/22/2019 17:35 Notice Type: Patient Choice Letter Notice Delivered To: Patient Relationship to Patient: Self Principal Clerk Name: Delivery Method: HAND - Hand Delivered Hyacinth Days: Prior Verbal Notification: Recipient Understood Notice: Yes Recipient Signature: Yes Med Rec Note Co-signed by Attending: Coverage Notice Comment: NEGRITA for [facility] and Kateryna Reviewer: [id number] Lukas Rai Notice Issued Date-Time: 08/23/2019 11:51 Notice Type: Patient Choice Letter Notice Delivered To: Patient Relationship to Patient: Self Principal Clerk Name: Delivery Method: HAND - Hand Delivered Hyacinth Days: Prior Verbal Notification: Recipient Understood Notice: Yes Recipient Signature: Yes Med Rec Note Co-signed by Attending: Coverage Notice Comment: NEGRITA FOR [facility] Reviewer: [id number] Lukas Rai Notice Issued Date-Time: 08/23/2019 11:51 Notice Type: IM Discharge Notice Notice Delivered To: Patient Relationship to Patient: Self Principal Clerk Name: Delivery Method: HAND - Hand Delivered Hyacinth Days: Prior Verbal Notification: Recipient Understood Notice: Yes Recipient Signature: Yes Med Rec Note Co-signed by Attending: Coverage Notice Comment: IMM EXPLAINED, SIGNED, GIVEN, COPY PLACED IN MR Reviewer: [id number] Lukas Rai Notice Issued Date-Time: 09/01/2019 12:52 Notice Type: IM Discharge Notice Notice Delivered To: Patient Relationship to Patient: Self Principal Clerk Name: Delivery Method: HAND - Hand Delivered Hyacinth Days: Prior Verbal Notification: Recipient Understood Notice: Yes Recipient Signature: Yes Med Rec Note Co-signed by Attending: Coverage Notice Comment: IMM explained, signed, given, copy placed in MR Last DP export: 08/29/19 3:26 Patient Name: JUAN JOSE GARCIA Page [phone] at 1313 All edits/amendments must be made on the electronic document DICTATION DATE: 09/01/19 131 NURSING SPECIALIST: LYUDMILA 09/01/19 131 RPT#: [id number] DC DATE: STATUS: ADM IN [facility] [address] [place] [address] END OF REPORT
[2019-09-01 16:29] VITALS: BP 120/66
[2019-09-01 21:27] VITALS: BP 126/65
--- NOTE | 2019-09-01 22:29 | NUR ---
A/O WITH NO SIGNS OF ACUTE DISTRESS. PICC LINE NOTED TO THE RT FORARM WITH SOME SWELLING. PT DENIES PAIN ON INFUSIGN. WOUND VAC TO THE LT LEG. DENIES NO OTHER NEEDS AT THIS TIME. CONTINUE PLAN OF CARE.
[2019-09-02 00:42] VITALS: BP 125/68
[2019-09-02 05:26] VITALS: BP 125/64
[2019-09-02 06:26] LABS: BASOPHILS 0.7 % (0-2); EOSINOPHILS 2.7 % (0-7); HEMATOCRIT 29.5 % (42.0-54.0); IMMATURE GRANULOCYTES 0.4 % (0-5); LYMPHOCYTES 21.5 % (15-50); MCH 28.1 pg (26.0-34.0); MCHC 30.5 g/dL (31.0-37.0); MCV 92.2 fL (80.0-100.0); MONOCYTES 15.3 % (2-11); NEUTROPHILS 59.4 % (40-80); PLATELET COUNT 414 10x3/uL (130-400); RDW 14.5 % (11.5-14.5); WBC 6.8 10x3/uL (4.8-10.8)
[2019-09-02 06:44] LABS: ALKALINE PHOSPHATASE 92 U/L (46-116); ALT (SGPT) 17 U/L (10-68); BILIRUBIN - TOTAL 0.38 mg/dL (0.2-1.3); CALC OSMOLALITY 273 mosm/kg (275-300); CARBON DIOXIDE 29.3 mmol/L (21.0-32.0); CHLORIDE - SERUM 103 mmol/L (98-107); CREATININE - SERUM 0.7 mg/dL (0.6-1.3); GLUCOSE 119 mg/dL (74-106); POTASSIUM - SERUM 4.1 mmol/L (3.5-5.1); PROTEIN - SERUM 5.2 g/dL (6.4-8.2); SODIUM 137 mmol/L (136-145); UREA NITROGEN 10 mg/dL (7-18); eGFR NON AFRICAN AMERICAN > 90 mL/min (90-120)
[2019-09-02 08:34] VITALS: BP 155/78
[2019-09-02 12:52] VITALS: BP 141/74
--- NOTE | 2019-09-02 13:13 | NUR ---
Nutrition follow-up: Diet: Consistent CHO PO Intake ~60% average of last 9 meals Labs reviewed +BM Wt: 239# Pt to go to rehab soon. RDN following.
--- NOTE | 2019-09-02 13:50 | NUR ---
Prevena dressing changed as per Dr. Craven's orders. Incision to left hip is clean, dry and intact with sutures noted. Skin is without redness but edema is noted on the lateral thigh. Pt tolerated well. Wound care continues to monitor.
[2019-09-02] MEDS ORDERED: CUBICIN500 MG IV (13:52)
[2019-09-02] MEDS ORDERED: DILAUDID4 MG PO (13:52)
[2019-09-02] MEDS ORDERED: ELIQUIS5 MG PO (13:52)
[2019-09-02] MEDS ORDERED: RIFADIN300 MG PO (13:52)
--- NOTE | 2019-09-02 14:21 | MORECARE ---
CASE MANAGEMENT DISCHARGE SUMMARY PATIENT: JUAN JOSE GARCIA UNIT: [id number] ADM DATE: 08/19/19 AGE: 69 : 49 SEX: M ROOM/BED: D.2239 AUTHOR: AMBAR SANFORD PHYSICIAN: REFERRING PHYSICIAN: ANALILIA GONZALES DO DATE OF SERVICE: 09/02/19 Discharge Plan Patient Name: JUAN JOSE GARCIA Facility: [facility]:[place] : 1950 Planned Disposition: Home Anticipated Discharge Date: Discharge Date: Expected LOS: Initial Reviewer: [email or web address] Initial Review Date: 08/22/2019 Generated: 09/02/19 3:21 pm Comments DCP- Discharge Planning Updated by [email or web address]: Phyllis Rai on 09/02/19 1:[address] He has been accepted to [facility]. I faxed discharge orders/MAR/Home med list. Dr. Gonzales has written RX including paper Rx for pain medication. I spoke with Ericka and they will sampler pickup at 4 o'clock today. He will be discharging to a skilled (Medicare) bed. DCP- Discharge Planning Updated by [email or web address]: Phyllis Rai on 09/01/19 12:[address] Updated clinical faxed to [facility]. I notified Ericka of possible discharge tomorrow. CM will continue to follow and assist with discharge planning/needs. DCP- Discharge Planning Updated by [email or web address]: Phyllis Rai on 08/29/19 3:[address] Updated clinical faxed to [facility]. CM will continue to follow and assist with discharge planning/needs. DCP- Discharge Planning Updated by [email or web address]: Phyllis Rai on 08/23/19 10:[address] PT continues to recommend SNF. I spoke again with the patient and he is agreeable to a SNF. He has been at [facility] before and would like a referral to [facility]. I called estelle Barnett for [facility], and clinical faxed. CM will continue to follow and assist with discharge planning/needs. Ericka Quiles RN, estelle for [facility] - [phone] DCP- Discharge Planning Updated by [email or web address]: Phyllis Rai on 08/22/19 4:[address] Patient Name: JUAN JOSE GARCIA Admission Status: Elective Accout number: [id number] Admission Date: 08-19-2019 : 1950 Admission Diagnosis: Attending: ANALILIA GONZALES Current LOS: 3 Anticipated DC Date: Planned Disposition: Home Primary Insurance: MEDICARE A & B Discharge Planning Comments: CM met with patient to complete initial dc planning assessment. CM educated patient on the CM role and verbal consent given by patient to complete assessment. Patient lives at home alone. At discharge patient plans to return and feels this is a safe discharge. He states his ex wives (Yecenia and Jacey will be staying with him 25/05). CM discussed availability of home health, rehab services, and medical equipment. I informed patient that PT recommends rehab or a skilled unit. He states "I'm going home". He does agree to home health for PT. He may be too high risk to fall for outpatient PT at this time. NEGRITA signed for [facility]. CM will continue to follow and will assist as needed with dc plans/needs. Documentation Improvement Specialist: Phyllis Rai DCPIA - Discharge Planning Initial Assessment Updated by [email or web address]: Phyllis Rai on 08/22/19 5:28 pm * Is the patient Alert and Oriented? Yes * How many steps to enter\\exit or inside your home? 2/0 * PCP Dr. Rouse * Pharmacy [facility] * Preadmission Environment Acute Inpatient Rehab * Facility Name [facility] * ADLs Partial Dependent * Partial ADLs (Assistance needed) Ambulation * Equipment Bedside Commode Rolling Walker * List name and contact numbers for known caregivers / representatives who currently or will assist patient after discharge: Cat Calvillo [phone] * Verbal permission to speak to the caregivers and representatives has been obtained from the patient. Yes * Community resources currently utilized None * Additional services required to return to the preadmission environment? Yes * Can the patient safely return to the preadmission environment? Yes * Has this patient been hospitalized within the prior 30 days at any hospital? Yes Coverage Notice Reviewer: [id number] - Phyllis Rai Notice Issued Date-Time: 08/22/2019 17:35 Notice Type: Patient Choice Letter Notice Delivered To: Patient Relationship to Patient: Self Pelletizer Operator Name: Delivery Method: HAND - Hand Delivered Hyacinth Days: Prior Verbal Notification: Recipient Understood Notice: Yes Recipient Signature: Yes Med Rec Note Co-signed by Attending: Coverage Notice Comment: NEGRITA for [facility] Victoriadaysi Reviewer: [id number] Lukas Rai Notice Issued Date-Time: 08/23/2019 11:51 Notice Type: Patient Choice Letter Notice Delivered To: Patient Relationship to Patient: Self Pelletizer Operator Name: Delivery Method: HAND - Hand Delivered Hyacinth Days: Prior Verbal Notification: Recipient Understood Notice: Yes Recipient Signature: Yes Med Rec Note Co-signed by Attending: Coverage Notice Comment: NEGRITA FOR NIKA HGUGINS Reviewer: [id number] Rai Notice Issued Date-Time: 08/23/2019 11:51 Notice Type: IM Discharge Notice Notice Delivered To: Patient Relationship to Patient: Self Pelletizer Operator Name: Delivery Method: HAND - Hand Delivered Hyacinth Days: Prior Verbal Notification: Recipient Understood Notice: Yes Recipient Signature: Yes Med Rec Note Co-signed by Attending: Coverage Notice Comment: IMM EXPLAINED, SIGNED, GIVEN, COPY PLACED IN MR Reviewer: [id number] Rai Notice Issued Date-Time: 09/01/2019 12:52 Notice Type: IM Discharge Notice Notice Delivered To: Patient Relationship to Patient: Self Pelletizer Operator Name: Delivery Method: HAND - Hand Delivered Hyacinth Days: Prior Verbal Notification: Recipient Understood Notice: Yes Recipient Signature: Yes Med Rec Note Co-signed by Attending: Coverage Notice Comment: IMM explained, signed, given, copy placed in MR Last DP export: 09/01/19 12:13 Patient Name: JUAN JOSE GARCIA Page [phone] at 1421 All edits/amendments must be made on the electronic document DICTATION DATE: 09/02/19 1421 APARTMENT HOUSE MANAGER: LYUDMILA 09/02/19 1421 RPT#: [id number] DC DATE: STATUS: ADM IN [place] [address] [place] [address] END OF REPORT
--- NOTE | 2019-09-02 16:29 | NUR ---
DISCHARGED PATIENT TO THE [facility] VIA WHEELCHAIR ACCOMPANIED BY STAFF. CALLED REPORT INTO [facility]. WENT OVER DISCHARGE INSTRUCTIONS WITH PATIENT, VERBALIZED UNDERSTANDING. NO C/O PAIN. NO S/S OF ACUTE DISTRESS NOTED. DENIES ANYTHING FURTHER.
--- NOTE | 2019-09-03 11:31 | MORECARE ---
CASE MANAGEMENT DISCHARGE SUMMARY PATIENT: JUAN JOSE GARCIA UNIT: [id number] ADM DATE: 08/19/19 AGE: 69 : [birth year] SEX: M ROOM/BED: D.2239 AUTHOR: JUVENAL,AMBAR PHYSICIAN: REFERRING PHYSICIAN: ANALILIA GONZALES DO DATE OF SERVICE: 09/03/19 Discharge Plan Patient Name: JUAN JOSE GARCIA Facility: [facility]:[place] : 1950 Planned Disposition: Home Anticipated Discharge Date: Discharge Date: 09/02/2019 Expected LOS: Initial Reviewer: [id number] Initial Review Date: 08/22/2019 Generated: 09/03/19 12:31 pm Comments DCP- Discharge Planning Updated by [email or web address]: Phyllis Rai on 09/02/19 1:[address] He has been accepted to [facility]. I faxed discharge orders/MAR/Home med list. Dr. Gonzales has written RX including paper Rx for pain medication. I spoke with Ericka and they will crab picker at 4 o'clock today. He will be discharging to a skilled (Medicare) bed. DCP- Discharge Planning Updated by [id number]: Phyllsi Rai on 09/01/19 12:[address] Updated clinical faxed to [facility]. I notified Ericka of possible discharge tomorrow. CM will continue to follow and assist with discharge planning/needs. DCP- Discharge Planning Updated by [id number]: Phyllis Rai on 08/29/19 3:[address] Updated clinical faxed to [facility]. CM will continue to follow and assist with discharge planning/needs. DCP- Discharge Planning Updated by [id number]: Phyllis Rai on 08/23/19 10:[address] PT continues to recommend SNF. I spoke again with the patient and he is agreeable to a SNF. He has been at [facility] before and would like a referral to [facility]. I called estelle Barnett for the [facility], and clinical faxed. CM will continue to follow and assist with discharge planning/needs. Ericka Quiles, RN, estelle for [facility] - [phone] DCP- Discharge Planning Updated by [email or web address]: Phyllis Rai on 08/22/19 4:[address] Patient Name: JUAN JOSE GARCIA Admission Status: Elective Accout number: [id number] Admission Date: 08-19-2019 : 1950 Admission Diagnosis: Attending: ANALILIA GONZALES Current LOS: 3 Anticipated DC Date: Planned Disposition: Home Primary Insurance: MEDICARE A & B Discharge Planning Comments: CM met with patient to complete initial dc planning assessment. CM educated patient on the CM role and verbal consent given by patient to complete assessment. Patient lives at home alone. At discharge patient plans to return and feels this is a safe discharge. He states his ex wives (Yecenia and Jacey will be staying with him 25/05). CM discussed availability of home health, rehab services, and medical equipment. I informed patient that PT recommends rehab or a skilled unit. He states "I'm going home". He does agree to home health for PT. He may be too high risk to fall for outpatient PT at this time. NEGRITA signed for [facility]. CM will continue to follow and will assist as needed with dc plans/needs. Occupational Health Professional: Phyllis Rai DCPIA - Discharge Planning Initial Assessment Updated by [email or web address]: Phyllis Rai on 08/22/19 5:28 pm * Is the patient Alert and Oriented? Yes * How many steps to enter\\exit or inside your home? 2/0 * PCP Dr. Rouse * Pharm[facility] * Preadmission Environment Acute Inpatient Rehab * Facility Name [facility] * ADLs Partial Dependent * Partial ADLs (Assistance needed) Ambulation * Equipment Bedside Commode Rolling Walker * List name and contact numbers for known caregivers / representatives who currently or will assist patient after discharge: Cat Calvillo [phone] * Verbal permission to speak to the caregivers and representatives has been obtained from the patient. Yes * Community resources currently utilized None * Additional services required to return to the preadmission environment? Yes * Can the patient safely return to the preadmission environment? Yes * Has this patient been hospitalized within the prior 30 days at any hospital? Yes Coverage Notice Reviewer: [id number] - Phyllis Rai Notice Issued Date-Time: 08/22/2019 17:35 Notice Type: Patient Choice Letter Notice Delivered To: Patient Relationship to Patient: Self Hospice Director Name: Delivery Method: HAND - Hand Delivered Hyacinth Days: Prior Verbal Notification: Recipient Understood Notice: Yes Recipient Signature: Yes Med Rec Note Co-signed by Attending: Coverage Notice Comment: NEGRITA for [facility] Ag[facility] Victoriadaysi Reviewer: [id number] Lukas Rai Notice Issued Date-Time: 08/23/2019 11:51 Notice Type: Patient Choice Letter Notice Delivered To: Patient Relationship to Patient: Self Hospice Director Name: Delivery Method: HAND - Hand Delivered Hyacinth Days: Prior Verbal Notification: Recipient Understood Notice: Yes Recipient Signature: Yes Med Rec Note Co-signed by Attending: Coverage Notice Comment: NEGRITA FOR NIKA HUGGINS Reviewer: [id number] Lukas Rai Notice Issued Date-Time: 08/23/2019 11:51 Notice Type: IM Discharge Notice Notice Delivered To: Patient Relationship to Patient: Self Hospice Director Name: Delivery Method: HAND - Hand Delivered Hyacinth Days: Prior Verbal Notification: Recipient Understood Notice: Yes Recipient Signature: Yes Med Rec Note Co-signed by Attending: Coverage Notice Comment: IMM EXPLAINED, SIGNED, GIVEN, COPY PLACED IN MR Reviewer: [id number] Rai Notice Issued Date-Time: 09/01/2019 12:52 Notice Type: IM Discharge Notice Notice Delivered To: Patient Relationship to Patient: Self Hospice Director Name: Delivery Method: HAND - Hand Delivered Hyacinth Days: Prior Verbal Notification: Recipient Understood Notice: Yes Recipient Signature: Yes Med Rec Note Co-signed by Attending: Coverage Notice Comment: IMM explained, signed, given, copy placed in MR Last DP export: 09/02/19 1:21 p Patient Name: JUAN JOSE GARCIA Page [id number] at 1131 All edits/amendments must be made on the electronic document DICTATION DATE: 09/03/19 1130 LOW VOLTAGE ELECTRICIAN: LYUDMILA 09/03/19 1130 RPT#: [id number] DC DATE:09/02/19 STATUS: DIS IN [facility] [address] [place] [address] END OF REPORT
--- NOTE | 2019-09-07 12:45 | OP ---
PATIENT NAME: JUAN JOSE TRACEY MEDICAL RECORD: [id number] :[birth year] LOCATION:D.[facility] [id number] ADMISSION DATE:08/19/19 SURGEON: ANALILIA GONZALES DO DATE OF OPERATION: 08/19/2019 PROCEDURE PERFORMED: Left hip irrigation, debridement and hematoma evacuation. PREOPERATIVE DIAGNOSIS: Left hip wound drainage hematoma, possible infection, periprosthetic. POSTOPERATIVE DIAGNOSIS: Left hip wound drainage hematoma, possible infection, periprosthetic. INDICATIONS: Mr. Tracey is a 69-year-old male that underwent left total hip 10 days ago. He was in rehab and called me this morning and informed me that when he stood up, he had massive drainage out of the wound. He said he had some pain earlier but no fevers or chills. I have observed the drainage and saw that it was a sanguinous and informed him that we will need to do an I&D, possible head swab and take cultures in the OR that this may be infected. He was aware of that and aware of the risks including need for another surgery, continuous IV antibiotics, continued pain, blood clots, fracture, and even and he signed the consent. SURGEON: Analilia Gonzales DO DESCRIPTION OF PROCEDURE: The patient was taken to the operative suite, laid in the supine position, sedated and intubated. He was then moved to the [place] table and positioned. The left hip was then prepped and draped in sterile fashion. A timeout was performed and everybody was in agreement as to the correct side, site, and patient and procedure. Then, began by making an incision over the previous incision from the hip and serosanguineous fluid rushed out of the wound. This was cultured with 9 different cultures and sent off to the lab for stat Gram stain. In the meantime, the hip was I&D'd and put 6 liters of normal saline through. At that time, the lab had contacted us and on the first 2 Gram stains, there were no organisms seen and no white blood cells. At that time, we proceeded to continue to wash out the hip and a Hibiclens soap was put into the wound and a scrub brush was used to scrub off the implants deep. We then irrigated with another 3 liters of normal saline and then a liter Bactisure and another 3 liters normal saline and we had put 2 drains; one deep and one superficial and closed the fascia and began to close the skin when the lab called back and they said that they saw very few gram-positive cocci on 4 out of the 9 cultures taken. Due to the fact it was less than 50% and as much fluid we put through in the scrubbing and it has been only 10 days since the surgery, low likelihood of biofilm forming on the implants, made the choice to continue to close and put a Prevena VAC on. The skin was closed with 2-0 Monocryl in inverted interrupted fashion, 4-0 Monocryl ran on the skin and then Prevena VAC placed on the skin. The drain was then secured with Tegaderms and the patient was awakened and taken to the recovery in stable condition. Blood loss was approximately 100 mL. COMPLICATIONS: None. OPERATIVE REPORT [id number] JUAN JOSE TRACEY Please note that he was started on vancomycin after the cultures were taken at the end of procedure. TRANSINT:[id number] Voice Confirmation ID: [id number] DOCUMENT ID: [id number] 09/07/2019 Edited for account number, dmm. ANALILIA GONZALES DO at 1245 CC: [id number] DICTATION DATE: 08/19/192056 FINANCIAL SYSTEMS DIRECTOR: 08/20/19 020 DIS IN 09/02/19 [place] [place] [address]
[2019-09-19 07:08] LABS: FUNGUS MYCOLOGY CULTURE Final report (())
== END 2019-09-02 16:31 | DRG 467 ==
LOC: D.MS 09:40
PROVIDERS: Emergency Medicine; Family Medicine; Internal Medicine Nephrology; ADMIT Orthopaedic Surgery; ATTEND Orthopaedic Surgery
PROC: 0QD Lower Bones, Extraction (ICD-10-PCS; 2019-08-19)
PROC: 05HY33Z Insertion of Infusion Device into Upper Vein, Percutaneous Approach (ICD-10-PCS; 2019-08-24)
PROC: 0SRB0J9 Replacement of Left Hip Joint with Synthetic Substitute, Cemented, Open Approach (ICD-10-PCS; principal; 2019-08-28 08:00)
PROC: 0SPB0JZ Removal of Synthetic Substitute from Left Hip Joint, Open Approach (ICD-10-PCS; 2019-08-28 08:00)
DX: T84.52XA Infection and inflammatory reaction due to internal left hip prosthesis, initial encounter (principal); I82.621 Acute embolism and thrombosis of deep veins of right upper extremity; M96.840 Postprocedural hematoma of a musculoskeletal structure following a musculoskeletal system procedure; I10 Essential (primary) hypertension; I25.10 Atherosclerotic heart disease of native coronary artery without angina pectoris; M19.90 Unspecified osteoarthritis, unspecified site; F41.9 Anxiety disorder, unspecified; I25.2 Old myocardial infarction; E11.65 Type 2 diabetes mellitus with hyperglycemia

== ENCOUNTER → 2019-11-03 18:52 | Outpatient (CLI) | payer MEDICARE, BC ==
[2019-08-20 01:33] VITALS: BMI 27.6
[~2019-11-03 18:52] MED LIST changes: +CUBICIN500 MG IV; +ELIQUIS5 MG PO; +RIFADIN300 MG PO
[2019-11-03 19:10] LABS: BASOPHILS 0.4 % (0-2); EOSINOPHILS 1.8 % (0-7); HEMATOCRIT 40.6 % (42.0-54.0); HEMOGLOBIN 12.7 g/dL (13.5-17.5); IMMATURE GRANULOCYTES 0.1 % (0-5); LYMPHOCYTES 27.5 % (15-50); MCH 26.3 pg (26.0-34.0); MCHC 31.3 g/dL (31.0-37.0); MCV 84.1 fL (80.0-100.0); MONOCYTES 9.6 % (2-11); NEUTROPHILS 60.6 % (40-80); RBC 4.83 10x6/uL (4.20-6.10); RDW 15.1 % (11.5-14.5); WBC 7.8 10x3/uL (4.8-10.8)
[2019-11-03 19:11] LABS: PLATELET COUNT 289 10x3/uL (130-400)
[2019-11-03 20:13] LABS: ERYTHROCYTE SEDIMENTATION RATE 24 mm/hr (0-20)
== END | disposition home or self-care (01) ==
LOC: D.LABREF 18:52
PROVIDERS: ATTEND Orthopaedic Surgery
DX: M25.552 Pain in left hip (principal)

== ENCOUNTER → 2020-03-13 07:32 | Outpatient (CLI) | payer MEDICARE, BC ==
[2019-08-20 01:33] VITALS: BMI 27.6
== END | disposition home or self-care (01) ==
LOC: D.MRI 07:32
PROVIDERS: ATTEND Orthopaedic Surgery
DX: M54.16 Radiculopathy, lumbar region (principal)